=== PATIENT | female | born 1990 | race Caucasian/White ===

== ENCOUNTER 2022-09-03 11:50 | Inpatient (IN) ==
[2022-09-05] MEDS ORDERED: PENICILLIN G POTASSIUM 6 MU in DEXTROSE 5% 250 ML IV STA (09:59)
[2022-09-05] MEDS ORDERED: OXYTOCIN 30 UNITS/500 ML BAG IV PRN (09:59)
[2022-09-05] MEDS ORDERED: LIDOCAINE 1% LOCAL 20 ML VIAL INFIL PRN (09:59)
[2022-09-05] MEDS ORDERED: DINOPROSTONE 10 MG INSERT PV ONE (10:05)
--- NOTE | 2022-09-05 10:38 | History & Physical Report ---
Date of Service September 05, 2022 Assessment & Plan (1) Post-dates : Plan: Cervical ripening with Cervidil planned (2) Gestational diabetes: Admission and Anticipated Discharge Date Admission Date: September 05, 2022 History of Present Illness Chief Complaint: induction of labor for post dates Primary Care Provider: Mehnaz Capone, 32 F P0000 at 40.3 weeks here fir IOL for post-dates. Her GBS is negative. Covid is negative. GDM on diet control only. Allergies Allergy/AdvReac Type Severity Reaction Status Date / Time Penicillins AdvReac Rash Verified 09/05/22 10:13 Home Medications Medication Instructions Recorded Confirmed Type iron,carbonyl 65 mg-vitamin C 125 1 tab PO DAILY 09/05/22 09/05/22 History mg tablet,delayed release (Vitron-C) [id number] 1 mg 1 tab PO DAILY 09/05/22 09/05/22 History tablet Patient History Medical History Gestational diabetes mellitus diet controlled Infertility used clomid to get PCOS (polycystic ovarian syndrome) no meds Surgical History No history of previous surgery Social History Smoking Status: Never smoker Hx Alcohol Use: No Hx Substance Use: No Preferred Language: Croatian Cardiac Monitor Required: No Beliefs That Will Affect Care: None marital status: marital status details: Mohan Alexander Current Living Situation: Spouse 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 PCOS Review of Systems All systems reviewed & are unremarkable except as noted in HPI & below Physical Exam Constitutional: WD/WN, vitals as above Eyes: PERRL, conjunctivae normal, anicteric sclerae Respiratory: normal respiratory effort, lungs clear to auscultation Cardiovascular: RRR, no murmur, no edema Skin: no rashes, warm and dry Neurologic: patellar DTR's 2+ bilat, sensation intact Psychiatric: A+Ox3, euthymic affect Results & Data ([place]) Vital Signs (Past 12 Hours) Vital Signs Temp Pulse Resp BP 09/05/22 08:04 36.3 C L 18 09/05/22 08:02 87 122/72 Laboratory Results Laboratory Results - last 48 hr 09/05/22 09:00 SARS-CoV-2, RNA, NAAT NEGATIVE Monitoring External Monitor Cat 1
--- NOTE | 2022-09-05 10:41 | Labor Progress Brief Note ---
Date of Service September 05, 2022 Assessment & Plan Admission and Anticipated Discharge Date Admission Date: September 05, 2022 Physical Exam Genitourinary: no vaginal lesions, no adnexal mass OB Exam Abdomen: + fundal height, + vertex and + estimated weight (8 lbs.) Manual OB Exam: + cervical dilation, + cervical effacement 50% and + station high OB Exam Monitor Tracing: + external FHT monitor used, + external uterine monitor used, + category I and + normal FHT variability Cervix closed/thick/posterior Cervidil 10 mg placed vaginally Results & Data ([facility]) Vital Signs (Past 12 Hours) Vital Signs Temp Pulse Resp BP 09/05/22 08:04 36.3 C L 18 09/05/22 08:02 87 122/72
[2022-09-05 10:42] LABS: Hemoglobin 11.3 g/dl (12.0-16.0); Mean Corpuscular Hemoglobin 29.8 pg (25.0-34.0); Mean Corpuscular Hgb Conc 33.2 g/dL (32.0-36.0); Mean Corpuscular Volume 89.7 fL (80.0-100.0); Mean Platelet Volume 11.9 fL (9.4-12.3); Platelet Count 189 K/uL (130-400); RDW Coefficient of Variation 14.3 % (11.5-14.5); RDW Standard Deviation 46.5 fL (36.4-46.3); Red Blood Count 3.79 M/uL (3.93-5.22); White Blood Count 13.08 K/ul (4.8-10.8)
[2022-09-05] MEDS ORDERED: miSOPROStoL 50 MCG TAB PO STA (23:24)
[2022-09-05] MEDS ORDERED: ePHEDrine sulfate 50 MG/ML AMP ONE (23:57)
[2022-09-05] MEDS ORDERED: fentaNYL 2MCG/ML ROPIVACAINE 1.25MG/ML 100 ML BAG EPI ONE (23:58)
[2022-09-05] MEDS ORDERED: SODIUM CHLORIDE 0.9% INJ 10 ML VIAL ONE (23:58)
[2022-09-05] MEDS ORDERED: BUPIVACAINE 0.25% 30 ML VIAL ONE (23:58)
[2022-09-05] MEDS ORDERED: LIDOCAINE 2%/EPINEPHRINE 1:200,000 20 ML SDV ONE (23:58)
[2022-09-05] MEDS ORDERED: fentaNYL citrate 100 MCG/2 ML VIAL ONE (23:58)
[2022-09-06] MEDS ORDERED: NALBUPHINE HCL INJ 10 MG/ML AMP IV PRN (00:42)
[2022-09-06] MEDS ORDERED: ONDANSETRON INJ 2 MG/ML 2 ML VIAL IV PRN (00:42)
[2022-09-06] MEDS ORDERED: NALOXONE HCL 0.4 MG/1 ML VIAL/CARP IV PRN (00:42)
[2022-09-06] MEDS ORDERED: ePHEDrine sulfate 50 MG/ML AMP IV PRN (00:42)
[2022-09-06] MEDS ORDERED: diphenhydrAMINE 50 MG/ML VIAL IV PRN (00:42)
[2022-09-06] MEDS ORDERED: fentaNYL 2MCG/ML ROPIVACAINE 1.25MG/ML 100 ML BAG EPI PRN (00:42)
[2022-09-06] MEDS ORDERED: NALOXONE HCL 1 MG in SODIUM CHLORIDE 0.9% 1000ML 1,000 ML IV PRN (00:42)
--- NOTE | 2022-09-06 00:45 | Anesthesiology Consultation ---
Date of Service September 06, 2022 Assessment & Plan Chart Review Chart Review: Patient NOT seen in Pre Admission Testing and Acceptable Risk for Labor Epidural Consults Requested none ASA ASA2 Proposed Anesthesia Anesthesia Type: Labor Epidural and CSE Risk / Benefits Reviewed With: PT / POA / Parent / Guardian, Accepts Plan and Informed Consent Obtained History Height/Weight Height: 5 ft 5 in Weight: 92.079 kg Allergies Allergy/AdvReac Type Severity Reaction Status Date / Time Penicillins AdvReac Rash Verified 09/05/22 10:13 Medications Home Medications Medication Instructions Recorded Confirmed Last Taken iron,carbonyl 65 mg-vitamin C 125 1 tab PO DAILY 09/05/22 09/05/22 09/04/22 09:00 mg tablet,delayed release (Vitron-C) [id number]-vmr-[id number]-FA 1 mg 1 tab PO DAILY 09/05/22 09/05/22 09/03/22 09:00 tablet Active Medications Generic Name Dose Route Start Last Admin Trade Name Freq PRN Reason Stop Dose Admin Lactated Ringer's 1,000 mls @ 125 mls/hr 09/05/22 09:59 09/06/22 00:00 Lr IV 09/07/22 09:58 999 mls/hr .Q8H PRN Administration L&D Protocol Protocol NPO Date Last Intake of Fluids: 09/05/22 Time Last Intake of Fluids: 23:00 Date Last Intake of Solids: 09/05/22 Time Last Intake of Solids: 17:00 Past Medical History Medical History Gestational diabetes mellitus diet controlled Infertility used clomid to get PCOS (polycystic ovarian syndrome) no meds Exercise / Class Metabolic Activity II 4-5 Yardwork/Stairs/Walk up hill Past Surgical History Surgical History No history of previous surgery Past Anesthesia History No Hx of Anesthesia Complications and No Family Hx of Anesthesia Complications History of PONV No Hx of PONV and No Hx of Motion Sickness Social History Smoking Status: Never smoker Hx Alcohol Use: No Hx Substance Use: No substance use type: does not use Review of Systems no chest pain or sob Physical Exam Vital Signs Last Vital Signs Temp 36.9 C 09/05/22 23:51 Pulse 73 09/06/22 00:44 Resp 18 09/05/22 15:13 BP 122/65 09/06/22 00:44 SpO2 99 ENMT Mouth: no TMJ abnormality Thyromental Distance: > or= 3.5 Finger Breadths Mallampati Class: II Neck normal visual inspection Respiratory normal respiratory effort Auscultation: lungs clear to auscultation bilaterally Cardiovascular Rate/Rhythm: regular rate and regular rhythm Musculoskeletal Spine: normal cervical ROM Neurologic moves all extremities Psychiatric Orientation: alert and oriented x 3 Testing Laboratory Results 09/05/22 10:12
[2022-09-06] MEDS: PENICILLIN G POTASSIUM 3 MU in DEXTROSE 5% 100 ML IV PRN ×4 (03:45→11:18)
[2022-09-06] MEDS: LACTATED RINGER'S 1,000 ML IV PRN ×3 (04:50→09:40)
[2022-09-06] MEDS ORDERED: NURSING L&D Epidural Breakthrough Pain Update ONE (06:55)
--- NOTE | 2022-09-06 09:15 | Labor Progress Brief Note ---
Date of Service September 06, 2022 Assessment & Plan (1) Post-dates : Plan: Pt doing well VE 10/100/-1 Anticipate passive descent Admission and Anticipated Discharge Date Admission Date: September 05, 2022 Results & Data ([facility]) Vital Signs (Past 12 Hours) Vital Signs Temp Pulse Resp BP Pulse Ox 09/06/22 07:00 37 C 20 09/06/22 09:10 74 100 09/06/22 09:05 76 100 09/06/22 09:00 78 09/06/22 09:00 78 118/66 100 09/06/22 08:55 80 100 09/06/22 08:50 74 100 09/06/22 08:46 70 97/52 L 09/06/22 08:45 79 100 09/06/22 08:40 73 100 09/06/22 08:35 81 100 09/06/22 08:33 81 93 09/06/22 08:30 79 20 105/55 L 100 09/06/22 08:25 75 100 09/06/22 08:20 71 100 09/06/22 08:16 73 106/59 L 09/06/22 08:15 76 100 09/06/22 08:10 73 100 09/06/22 08:05 84 100 09/06/22 08:01 74 109/63 09/06/22 08:00 78 100 09/06/22 07:55 72 100 09/06/22 07:50 77 100 09/06/22 07:45 74 09/06/22 07:45 70 116/64 100 09/06/22 07:40 72 100 09/06/22 07:35 71 100 09/06/22 07:30 71 20 118/76 100 09/06/22 07:25 82 100 09/06/22 07:20 73 100 09/06/22 07:16 71 115/68 09/06/22 07:15 72 100 09/06/22 07:10 83 99 09/06/22 07:05 79 100 09/06/22 07:01 71 115/66 09/06/22 07:00 72 100 09/06/22 06:55 83 98 09/06/22 06:50 73 98 09/06/22 06:45 73 106/61 98 09/06/22 06:40 71 98 09/06/22 06:35 69 97 09/06/22 06:30 20 09/06/22 06:30 64 20 106/61 98 09/06/22 06:25 66 98 09/06/22 06:20 65 98 09/06/22 06:16 64 106/57 L 09/06/22 06:15 65 98 09/06/22 06:10 66 97 09/06/22 06:00 18 09/06/22 06:00 37.7 C H 18 09/06/22 06:05 66 97 09/06/22 06:00 36.7 C 65 18 105/64 98 09/06/22 05:55 67 99 09/06/22 05:50 67 98 09/06/22 05:46 66 104/63 09/06/22 05:45 65 98 09/06/22 05:40 68 98 09/06/22 05:35 67 99 09/06/22 05:31 77 108/62 09/06/22 05:30 67 18 99 09/06/22 05:25 67 97 09/06/22 05:20 67 96 09/06/22 05:15 62 94/53 L 97 09/06/22 05:10 68 97 09/06/22 05:05 68 97 09/06/22 05:00 62 20 94/51 L 98 09/06/22 04:55 66 97 09/06/22 04:50 67 97 09/06/22 04:45 68 96/55 L 98 09/06/22 04:40 67 98 09/06/22 04:35 67 97 09/06/22 04:30 65 18 94/53 L 98 09/06/22 04:25 68 97 09/06/22 04:20 68 98 09/06/22 04:15 68 96/51 L 98 09/06/22 04:10 71 98 09/06/22 04:05 67 99 09/06/22 04:00 37.5 C 64 18 106/60 98 09/06/22 03:55 69 100 09/06/22 03:50 75 100 09/06/22 03:46 73 124/76 09/06/22 03:45 70 100 09/06/22 03:40 65 99 09/06/22 03:35 68 99 09/06/22 03:30 66 18 112/73 100 09/06/22 03:25 68 100 09/06/22 03:20 66 99 09/06/22 03:16 64 109/68 09/06/22 03:15 67 100 09/06/22 03:10 67 99 09/06/22 03:05 67 99 09/06/22 03:00 65 110/62 98 09/06/22 02:55 67 98 09/06/22 02:50 67 99 09/06/22 02:45 68 114/64 99 09/06/22 02:40 78 99 09/06/22 02:35 71 98 09/06/22 02:31 71 114/71 09/06/22 02:30 69 98 09/06/22 02:29 18 09/06/22 02:29 18 09/06/22 02:25 76 100 09/06/22 02:20 61 98 09/06/22 02:15 74 138/63 100 09/06/22 02:10 67 97 09/06/22 02:05 70 97 09/06/22 02:00 65 110/66 98 09/06/22 01:59 20 09/06/22 01:59 20 09/06/22 01:55 68 97 09/06/22 01:50 69 96 09/06/22 01:46 64 111/64 09/06/22 01:45 66 97 09/06/22 01:40 65 98 09/06/22 01:35 65 98 09/06/22 01:30 65 18 113/67 99 09/06/22 01:26 63 114/67 09/06/22 01:25 64 97 09/06/22 01:21 63 116/70 09/06/22 01:20 77 99 09/06/22 01:16 67 115/65 09/06/22 01:13 36.9 C 09/06/22 01:15 69 20 98 09/06/22 00:47 18 09/06/22 00:47 18 09/06/22 01:12 73 115/67 09/06/22 01:10 72 18 98 09/06/22 01:05 75 18 102/59 L 99 09/06/22 01:03 88 103/64 09/06/22 01:01 69 103/64 09/06/22 01:00 70 18 98 09/06/22 00:59 72 106/65 09/06/22 00:57 69 117/65 09/06/22 00:55 68 18 99 09/06/22 00:50 78 100 09/06/22 00:49 76 92 09/06/22 00:45 75 98 09/06/22 00:44 73 122/65 09/05/22 23:51 36.9 C
[2022-09-06] MEDS ORDERED: OXYTOCIN 30 UNITS/500 ML BAG IV PRN ×2 (09:23→14:18)
[2022-09-06] MEDS ORDERED: SODIUM CHLORIDE 0.9% INJ 10 ML VIAL ONE (09:47)
[2022-09-06] MEDS ORDERED: fentaNYL citrate 100 MCG/2 ML VIAL ONE (09:47)
[2022-09-06] MEDS ORDERED: BUPIVACAINE 0.25% 30 ML VIAL ONE (09:47)
--- NOTE | 2022-09-06 09:57 | Communication Note ---
Date of Service: September 06, 2022 Patient re-assessed d/t increased pain/pressure with and without contractions, last vaginal exam revealed 10 cm dilation but infant remains high. Bolus 3 cc 0.125% bupiv and 100 mcg fentanyl as patient labors down.
[2022-09-06] MEDS ORDERED: METHYLERGONOVINE MALEATE 0.2 MG/ML AMP ONE (13:46)
[2022-09-06] MEDS ORDERED: miSOPROStoL 200 MCG TAB ONE (13:46)
[2022-09-06] MEDS ORDERED: BENZOCAINE 20% AER SPR 82.5 GM CAN EXT PRN (14:18)
[2022-09-06] MEDS ORDERED: METHYLERGONOVINE MALEATE 0.2 MG/ML AMP IM ONE (14:18)
[2022-09-06] MEDS ORDERED: HYDROCORTISONE ACETATE 25 MG SUPP PR PRN (14:18)
[2022-09-06] MEDS ORDERED: miSOPROStoL 200 MCG TAB PR ONE (14:18)
[2022-09-06] MEDS ORDERED: DIPHTHERIA/TETANUS/PERTUSSIS 0.5 ML SYR/VIAL IM ONE (14:18)
[2022-09-06] MEDS ORDERED: bisacodyL 10 MG SUPP PR PRN (14:18)
[2022-09-06] MEDS ORDERED: ACETAMINOPHEN 325 MG TAB PO PRN (14:18)
[2022-09-06 14:41] LABS: Base Excess Cord Venous Blood -6.6 mEq/L (-7.7-1.9); Cord Venous Blood HCO3 19 mmol/L (18.4-26.8); Cord Venous Blood PCO2 38 mmHg (30.4-57.2); Cord Venous Blood PO2 29 mmHg (14.1-43.3); Cord Venous Blood pH 7.31 (7.20-7.44); O2 Saturation Cord Venous Bld < 60.0 % (<68)
[2022-09-06 14:43] LABS: Base Excess Cord Arterial Bld -7.9 mEq/L (-9-1.8); CO2 Cord Arterial Blood 56 mmHg (39.1-73.5); HCO3 Cord Arterial Blood 21 mmol/L (19.7-28.5); Oxygen Sat Cord Arterial Blood < 60.0 % (<60); PO2 Cord Arterial Blood 24 mmHg (4.1-31.7); pH Cord Arterial Blood 7.18 (7.1-7.38)
--- NOTE | 2022-09-06 14:44 | Anesthesia Procedure Note ---
Date of Service September 06, 2022 Anesthesia Post Epidural Note Vital Signs Vital Signs: Temp Pulse Resp BP Pulse Ox 99.0 F 77 20 123/67 98 09/06/22 14:10 09/06/22 14:40 09/06/22 14:25 09/06/22 14:40 09/06/22 14:10 Pain Intensity Left Hip: Pain Intensity: 6 Notes Mental Status: alert / awake / arousable and participated in evaluation Nausea / Vomiting: adequately controlled Pain: adequately controlled Airway Patency, RR, SpO2: stable & adequate BP & HR: stable & adequate Hydration State: stable & adequate Neuraxial Anesthesia: was administered and sensory block is resolving Anesthetic Complications: no major complications apparent and Pt Satisfied with anesthetic care Epidural: Removed without complications and With tip intact
--- NOTE | 2022-09-06 15:33 | Delivery Summary ---
DELIVERY NOTE: DATE OF DELIVERY: 09/06/2022. The patient delivered a live male in left occiput anterior presentation. There was nuchal cor d, which was easily reduced. Infant was delivered and placed on mother's abdomen. Delayed cord clam p was performed. Infant's weight and Apgars are in the pediatric record. Inspection of the perineum shows a second-degree midline laceration, which was repaired with Vicryl in layers. Rectal exam pos t-repair showed good sphincter tone. There was no sutures palpated in the rectum. Estimated blood loss was 450 mL. The patient and mother are doing well in recovery. All instruments were removed from the vagina and accounted for x2 including sponges, needles, and retractors. Job ID: [id number]
[2022-09-06] MEDS: IBUPROFEN 600 MG TAB PO PRN ×2 (17:44→21:17)
[2022-09-06] MEDS: DOCUSATE SODIUM 100 MG CAP PO SCH (21:17)
[2022-09-07] MEDS: IBUPROFEN 600 MG TAB PO PRN ×4 (03:55→19:52)
[2022-09-07 07:44] LABS: Hematocrit (blood only) 27.7 % (34.1-44.9); Hemoglobin 9.4 g/dl (12.0-16.0); Mean Corpuscular Hemoglobin 30.4 pg (25.0-34.0); Mean Corpuscular Hgb Conc 33.9 g/dL (32.0-36.0); Mean Corpuscular Volume 89.6 fL (80.0-100.0); Mean Platelet Volume 11.8 fL (9.4-12.3); Platelet Count 155 K/uL (130-400); RDW Coefficient of Variation 14.4 % (11.5-14.5); RDW Standard Deviation 46.4 fL (36.4-46.3); Red Blood Count 3.09 M/uL (3.93-5.22); White Blood Count 19.47 K/ul (4.8-10.8)
[2022-09-07] MEDS: PRENATAL VITAMIN 1 TAB PO SCH (08:46)
[2022-09-07] MEDS: DOCUSATE SODIUM 100 MG CAP PO SCH ×2 (08:47→19:51)
[2022-09-07] MEDS: FERROUS SULFATE 325 MG TAB PO SCH (08:47)
--- NOTE | 2022-09-07 09:09 | Obstetrical Progress Note ---
Date of Service September 07, 2022 Assessment & Plan Admission and Anticipated Discharge Date Admission Date: September 05, 2022 Subjective Patient is seen and examined. She feels well, no complaints. Ambulating without dizziness Voiding without difficulty Tolerating regular diet with out N&V Bleeding is minimal No fever/ chills/ CP/ SOB/ N&V/ Leg pain Breast feeding without problems Vital Signs Temp Pulse Resp BP Pulse Ox O2 Del Method 09/07/22 03:54 36.7 C 64 18 101/69 97 Room Air 09/07/22 00:45 Room Air 09/07/22 00:45 36.5 C 68 18 103/64 98 Room Air Lab Results 09/05/22 09/05/22 09/05/22 Range/Units 09:00 10:12 10:44 WBC 13.08 H (4.8-10.8) K/ul RBC 3.79 L (3.93-5.22) M/uL Hgb 11.3 L (12.0-16.0) g/dl Hct 34.0 L (34.1-44.9) % MCV 89.7 (80.0-100.0) fL MCH 29.8 (25.0-34.0) pg MCHC 33.2 (32.0-36.0) g/dL RDW Std Deviation 46.5 H (36.4-46.3) fL RDW Coeff of Claudio 14.3 (11.5-14.5) % Plt Count 189 (130-400) K/uL MPV 11.9 (9.4-12.3) fL Cord ABG pH (7.1-7.38) Cord ABG pCO2 (39.1-73.5) mmHg Cord ABG pO2 (4.1-31.7) mmHg Cord ABG HCO3 (19.7-28.5) mmol/L Cord ABG Base Excess (-9-1.8) mEq/L Cord ABG O2 Sat (<60) % Cord VBG pH (7.20-7.44) Cord VBG pCO2 (30.4-57.2) mmHg Cord VBG pO2 (14.1-43.3) mmHg Cord VBG HCO3 (18.4-26.8) mmol/L Cord VBG Base Excess (-7.7-1.9) mEq/L Cord VBG O2 Sat (<68) % Blood Gas Comments POC Glucose 78 (70-99) mg/dl SARS-CoV-2, RNA, NAAT NEGATIVE (NEGATIVE) 09/06/22 09/06/22 09/07/22 Range/Units 13:25 13:25 07:29 WBC 19.47 H (4.8-10.8) K/ul RBC 3.09 L (3.93-5.22) M/uL Hgb 9.4 L (12.0-16.0) g/dl Hct 27.7 L (34.1-44.9) % MCV 89.6 (80.0-100.0) fL MCH 30.4 (25.0-34.0) pg MCHC 33.9 (32.0-36.0) g/dL RDW Std Deviation 46.4 H (36.4-46.3) fL RDW Coeff of Claudio 14.4 (11.5-14.5) % Plt Count 155 (130-400) K/uL MPV 11.8 (9.4-12.3) fL Cord ABG pH 7.18 (7.1-7.38) Cord ABG pCO2 56 (39.1-73.5) mmHg Cord ABG pO2 24 (4.1-31.7) mmHg Cord ABG HCO3 21 (19.7-28.5) mmol/L Cord ABG Base Excess -7.9 (-9-1.8) mEq/L Cord ABG O2 Sat < 60.0 (<60) % Cord VBG pH 7.31 (7.20-7.44) Cord VBG pCO2 38 (30.4-57.2) mmHg Cord VBG pO2 29 (14.1-43.3) mmHg Cord VBG HCO3 19 (18.4-26.8) mmol/L Cord VBG Base Excess -6.6 (-7.7-1.9) mEq/L Cord VBG O2 Sat < 60.0 (<68) % Blood Gas Comments YUEN YUEN POC Glucose (70-99) mg/dl SARS-CoV-2, RNA, NAAT (NEGATIVE) PE: General: Alert, orientedx3, NAD Abd: soft, NT, fundus firm, below Umbilicus Perineum intact, Lochia rubra minimal Ext; NT, no edema AP: 32 yo s/p , ppd# 1 VSS Afebrile doing well Continue routine care All questions were answered D/C home tomorrow Results & Data ([facility]) Vital Signs (Past 12 Hours) Vital Signs Temp Pulse Resp BP Pulse Ox O2 Del Method 09/07/22 03:54 36.7 C 64 18 101/69 97 Room Air 09/07/22 00:45 Room Air 09/07/22 00:45 36.5 C 68 18 103/64 98 Room Air
[2022-09-07] MEDS ORDERED: bisacodyL 5 MG TABEC PO SCH (20:00)
[2022-09-08 06:53] LABS: Basophils # (auto) 0.08 K/uL (0-0.2); Basophils % (auto) 0.6 %; Eosinophils # (auto) 0.21 K/uL (0-0.50); Eosinophils % (auto) 1.4 %; Hematocrit (blood only) 29.2 % (34.1-44.9); Hemoglobin 9.8 g/dl (12.0-16.0); Immature Granulocytes # (auto) 0.21 K/uL (0.00-0.02); Immature Granulocytes % (auto) 1.4 %; Lymphocytes % (auto) 32.4 %; Mean Corpuscular Hemoglobin 30.4 pg (25.0-34.0); Mean Corpuscular Hgb Conc 33.6 g/dL (32.0-36.0); Mean Corpuscular Volume 90.7 fL (80.0-100.0); Mean Platelet Volume 11.8 fL (9.4-12.3); Monocytes # (auto) 1.16 K/uL (0.24-0.82); Neutrophils # (auto) 8.15 K/uL (1.4-6.5); Neutrophils % (auto) 56.2 %; Platelet Count 196 K/uL (130-400); RDW Coefficient of Variation 14.4 % (11.5-14.5); RDW Standard Deviation 47.8 fL (36.4-46.3); Red Blood Count 3.22 M/uL (3.93-5.22); White Blood Count 14.51 K/ul (4.8-10.8)
[2022-09-08] MEDS: FERROUS SULFATE 325 MG TAB PO SCH (09:05)
[2022-09-08] MEDS: DOCUSATE SODIUM 100 MG CAP PO SCH (09:06)
[2022-09-08] MEDS: PRENATAL VITAMIN 1 TAB PO SCH (09:06)
[2022-09-08] MEDS ORDERED: MEASLES, MUMPS & RUBELLA VIRUS VIAL SQ ONE (10:44)
--- NOTE | 2022-09-08 11:47 | Obstetrical Progress Note ---
Date of Service September 08, 2022 Subjective Ambulation: ambulating normally Voiding: no voiding problems Passing Gas:: Yes Diet Tolerance:: regular diet Lochia:: Small Feeding Type:: breast feeding Current Pain Level(1-10): 0 Physical Exam Constitutional WD/WN, vitals as above Gastrointestinal (Abdomen) Inspection/Auscultation: abdomen normal to inspection Musculoskeletal Extremities: extremities normal to inspection Skin no rashes, warm and dry Neurologic patellar DTR's 2+ bilat, sensation intact Psychiatric A+Ox3, euthymic affect Results & Data ([facility]) Vital Signs (Past 12 Hours) Vital Signs Temp Pulse Resp BP Pulse Ox O2 Del Method 09/08/22 08:45 36.7 C 67 18 115/73 99 Room Air Laboratory Results Laboratory Results - last 72 hr 09/06/22 09/06/22 09/07/22 13:25 13:25 07:29 WBC 19.47 H RBC 3.09 L Hgb 9.4 L Hct 27.7 L MCV 89.6 MCH 30.4 MCHC 33.9 RDW Std Deviation 46.4 H RDW Coeff of Clauido 14.4 Plt Count 155 MPV 11.8 Immature Gran % (Auto) Neut % (Auto) Lymph % (Auto) [place] % (Auto) Eos % (Auto) Baso % (Auto) Neut # (Auto) Lymph # (Auto) [place] # (Auto) Eos # (Auto) Baso # (Auto) Immature Gran # (Auto) Cord ABG pH 7.18 Cord ABG pCO2 56 Cord ABG pO2 24 Cord ABG HCO3 21 Cord ABG Base Excess -7.9 Cord ABG O2 Sat < 60.0 Cord VBG pH 7.31 Cord VBG pCO2 38 Cord VBG pO2 29 Cord VBG HCO3 19 Cord VBG Base Excess -6.6 Cord VBG O2 Sat < 60.0 Blood Gas Comments YUEN YUEN 09/08/22 06:22 WBC 14.51 H RBC 3.22 L Hgb 9.8 L Hct 29.2 L MCV 90.7 MCH 30.4 MCHC 33.6 RDW Std Deviation 47.8 H RDW Coeff of Claudio 14.4 Plt Count 196 MPV 11.8 Immature Gran % (Auto) 1.4 Neut % (Auto) 56.2 Lymph % (Auto) 32.4 [place] % (Auto) 8.0 Eos % (Auto) 1.4 Baso % (Auto) 0.6 Neut # (Auto) 8.15 H Lymph # (Auto) 4.70 H [place] # (Auto) 1.16 H Eos # (Auto) 0.21 Baso # (Auto) 0.08 Immature Gran # (Auto) 0.21 H Cord ABG pH Cord ABG pCO2 Cord ABG pO2 Cord ABG HCO3 Cord ABG Base Excess Cord ABG O2 Sat Cord VBG pH Cord VBG pCO2 Cord VBG pO2 Cord VBG HCO3 Cord VBG Base Excess Cord VBG O2 Sat Blood Gas Comments
== END 2022-09-08 14:25 | disposition home or self-care (01) | DRG 807 ==
LOC: 4S1 09-05 07:41 → 4E2 09-06 18:10

== ENCOUNTER 2022-10-13 00:02 | Observation (INO) ==
[2022-10-13 02:01] LABS: Appearance Urine Clear (Clear); Bacteria Urine Automated Negative (Negative); Blood Urine Negative (Negative); Cast Urine Automated 0 /lpf (0-5); Color Urine Dark Yellow; Glucose Urine UA Negative (Negative); Ketones Urine Trace (Negative); Leukocyte Esterase Urine Trace (Negative); Nitrite Urine Negative (Negative); Protein Urine Trace (Negative); RBC Urine Automated 0-4 /hpf (0-4); Specific Gravity Urine 1.037 (1.000-1.030); Urobilinogen Urine Negative (Negative)
[2022-10-13 02:04] LABS: Basophils # (auto) 0.04 K/uL (0-0.2); Basophils % (auto) 0.3 %; Eosinophils # (auto) 0.08 K/uL (0-0.50); Eosinophils % (auto) 0.7 %; Hematocrit (blood only) 37.2 % (37.0-47.0); Hemoglobin 12.4 g/dl (12.0-16.0); Immature Granulocytes # (auto) 0.05 K/uL (0.01-0.20); Immature Granulocytes % (auto) 0.4 %; Lymphocytes # (auto) 2.31 K/uL (1.2-3.4); Lymphocytes % (auto) 19.4 %; Mean Corpuscular Hemoglobin 29.5 pg (25.0-34.0); Mean Corpuscular Hgb Conc 33.3 g/dL (32.0-36.0); Mean Corpuscular Volume 88.6 fL (80.0-100.0); Mean Platelet Volume 10.4 fL (9.4-12.4); Monocytes # (auto) 0.64 K/uL (0.11-0.59); Monocytes % (auto) 5.4 %; Neutrophils # (auto) 8.79 K/uL (1.40-6.50); Neutrophils % (auto) 73.8 %; Platelet Count 257 K/uL (130-400); RDW Coefficient of Variation 12.8 % (11.5-14.5); RDW Standard Deviation 41.7 fL (36.4-46.3); White Blood Count 11.91 K/ul (4.8-10.8)
[2022-10-13 02:08] LABS: Bilirubin Urine 1+ (Negative)
[2022-10-13 02:18] LABS: Calcium Oxalate Crystals Urine Present (None Prsent)
[2022-10-13 02:20] LABS: Albumin Globulin Ratio 1.5 (0.9-2); Albumin Level 4.3 gm/dl (3.4-5.0); BUN Creatinine Ratio 19.4 (10-20); Bilirubin,Total 1.6 mg/dl (0.2-1.0); Calcium 9.3 mg/dl (8.5-10.1); Creatinine Clr Calc Pharmacy 81.8 ml/min; Est GFR (African American) 83.9 ml/min; Est GFR (Non-African American) 72.4 ml/min; Globulin 2.8 gm/dl (2.5-4.0); Potassium 3.9 mmol/L (3.5-5.1); Total Protein 7.1 gm/dl (6.0-8.3)
[2022-10-13] MEDS ORDERED: MoRPHine SULFATE 4 MG/ML 1 ML CARP\\VIAL IV PRN (03:27)
[2022-10-13] MEDS ORDERED: ONDANSETRON INJ 2 MG/ML 2 ML VIAL IV STA (03:27)
[2022-10-13] MEDS ORDERED: SODIUM CHLORIDE 0.9% 1000ML 1,000 ML IV SCH (03:45)
--- NOTE | 2022-10-13 05:30 | Emergency Department Note ---
History of Present Illness General Chief complaint: Abdominal Pain Stated complaint: ABDOMINAL PAIN Time Seen by Provider: 10/13/22 03:22 History of Present Illness Maximum Pain Intensity: 7 This is a 32-year-old female presenting to the emergency department for evaluation of right upper quadrant abdominal pain for the past several hours. The patient states that she is scheduled for elective cholecystectomy later this month with the [facility] surgical team. She would have had this removed earlier, however gave to a healthy baby boy about 1 month ago. The patient states that shortly after eating dinner tonight she had return of her pain that she rates a 7/10. She evidently has gallstones and feels similar to previous exacerbations. She has not had fever or chills. No lower abdominal discomfort. She is breast-feeding and supplementing with formula. She did take ibuprofen and Tylenol without significant improvement of symptoms. Home Medications Medication Instructions Recorded Confirmed Type iron,carbonyl 65 mg-vitamin C 125 1 tab PO DAILY 09/05/22 09/05/22 History mg tablet,delayed release (Vitron-C) [id number] 1 mg 1 tab PO DAILY 09/05/22 09/05/22 History tablet ibuprofen 600 mg tablet 600 mg PO Q6H PRN fever or pain 09/08/22 Rx #30 tabs Past Med/Surg History Medical History Gestational diabetes mellitus diet controlled Infertility used clomid to get PCOS (polycystic ovarian syndrome) no meds Surgical History No history of previous surgery Social History Smoking Status: Never smoker Hx Alcohol Use: No Hx Substance Use: No Preferred Language: [place] Post Acute Care Nurse Required: No Beliefs That Will Affect Care: None marital status: marital status details: Mohan Alexander Current Living Situation: Spouse 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 [employer] Feels Safe at Home: Yes Assistive Devices: None Review of Systems A total of 10 systems reviewed and were otherwise negative Physical Exam Vital Signs Vital Signs - 24 hr 10/13/22 00:06 10/13/22 04:02 10/13/22 07:40 Temperature 36.9 C Temperature Source Temporal Artery Scan Pulse Rate 57 L Pulse Rate [Radial] 61 Respiratory Rate 16 20 Respiratory Effort / Characteristics Non-Labored Non-Labored Spontaneous Respiratory Depth Normal Normal Respiratory Pattern Regular Blood Pressure 143/87 H Blood Pressure [Right Arm] 101/77 Blood Pressure Mean 105 Blood Pressure Mean [Right Arm] 85 Pulse Oximetry 100 100 Oxygen Delivery Method Room Air Room Air Room Air Sepsis Recent Fever Within 48 Hours No Sepsis New/Unexplained Change in Mental Status N/A Sepsis Action Taken by Nursing No Action Required VITALS: Vitals are noted on the nurse's note and reviewed by myself. Vital signs stable. GENERAL: Well-developed, well-nourished, white female, who is in no acute distress and resting comfortably. Patient is cooperative with the examination. HEAD: Normocephalic atraumatic. HEART: Regular rate and rhythm without murmurs gallops or rubs. LUNGS: Clear to auscultation bilaterally without wheezes, rales or rhonchi. No retractions or accessory muscle use. ABDOMEN: Positive normal bowel sounds x 4. Soft, nontender, without masses or organomegaly. No guarding or rebound tenderness. MUSCULOSKELETAL: No muscle atrophy, erythema, or edema noted. Full range of motion in all extremities. Course Administered Medications Morphine Sulfate (Morphine Sulfate 4 Mg/Ml 1 Ml Carp\Vial) 4 mg IV Q30M PRN PRN Reason: Pain Stop: 10/27/22 03:26 Last Admin: 10/13/22 04:04 Dose: 4 mg Documented By: ABRAM Discontinued Medications Sodium Chloride (Nss 1000ml) 1,000 mls @ 999 mls/hr IV .Q1H1M SAMRA Stop: 10/13/22 04:45 Last Infusion: 10/13/22 07:41 Dose: 0 mls/hr Documented By: Admin: 10/13/22 04:04 Dose: 999 mls/hr Documented By: ABRAM Piperacillin Sod/Tazobactam Sod (Zosyn) 4.5 gm in 120 mls @ 240 mls/hr IV NOW ONE Stop: 10/13/22 07:44 Last Admin: 10/13/22 07:40 Dose: 240 mls/hr Documented By: DHARA Ondansetron HCl (Ondansetron Inj 2 Mg/Ml 2 Ml Vial) 4 mg IV NOW STA Stop: 10/13/22 03:28 Last Admin: 10/13/22 04:04 Dose: 4 mg Documented By: ABRAM Medical Decision Making Differential Diagnosis Differential diagnosis: Etiologies such as biliary colic, cholecystitis, hepatitis, pancreatitis, ca rdiac disease, pancreatitis, gastritis, peptic ulcer disease, appendicitis, cystitis, diverticulitis, mesenteric ischemia, inflammatory bowel disease, ileus, bowel obstruction, testicular/adnexal torsion, aortic pathology, shingles, as well as others were considered Laboratory Data 10/13/22 01:39 10/13/22 01:39 Lab Results 10/13/22 10/13/22 10/13/22 Range/Units 01:33 01:33 01:39 WBC 11.91 H (4.8-10.8) K/ul RBC 4.20 (4.20-5.40) M/uL Hgb 12.4 (12.0-16.0) g/dl Hct 37.2 (37.0-47.0) % MCV 88.6 (80.0-100.0) fL MCH 29.5 (25.0-34.0) pg MCHC 33.3 (32.0-36.0) g/dL RDW Std Deviation 41.7 (36.4-46.3) fL RDW Coeff of Claudio 12.8 (11.5-14.5) % Plt Count 257 (130-400) K/uL MPV 10.4 (9.4-12.4) fL Immature Gran % (Auto) 0.4 % Neut % (Auto) 73.8 % Lymph % (Auto) 19.4 % [place] % (Auto) 5.4 % Eos % (Auto) 0.7 % Baso % (Auto) 0.3 % Neut # (Auto) 8.79 H (1.40-6.50) K/uL Lymph # (Auto) 2.31 (1.2-3.4) K/uL [place] # (Auto) 0.64 H (0.11-0.59) K/uL Eos # (Auto) 0.08 (0-0.50) K/uL Baso # (Auto) 0.04 (0-0.2) K/uL Immature Gran # (Auto) 0.05 (0.01-0.20) K/uL Sodium (136-145) mmol/L Potassium (3.5-5.1) mmol/L Chloride (98-107) mmol/L Carbon Dioxide (21-32) mmol/L Anion Gap (3-11) BUN (6-23) mg/dl Creatinine (0.6-1.2) mg/dl Est Cr Clr Drug Dosing ml/min Est GFR ( Amer) ml/min Est GFR (Non-Af Amer) ml/min BUN/Creatinine Ratio (10-20) Glucose (70-99(Fasting)) mg/dl Calcium (8.5-10.1) mg/dl Total Bilirubin (0.2-1.0) mg/dl AST (13-39) U/L ALT (7-52) U/L Alkaline Phosphatase (34-104) U/L Total Protein (6.0-8.3) gm/dl Albumin (3.4-5.0) gm/dl Globulin (2.5-4.0) gm/dl Albumin/Globulin Ratio (0.9-2) Lipase (11-82) U/L Urine Color Dark Yellow Urine Appearance Clear (Clear) Urine pH 6.0 (4.5-7.5) Ur Specific [place] 1.037 H (1.000-1.030) Urine Protein Trace H (Negative) Urine Glucose (UA) Negative (Negative) Urine Ketones Trace H (Negative) Urine Blood Negative (Negative) Urine Nitrite Negative (Negative) Urine Bilirubin 1+ H (Negative) Urine Urobilinogen Negative (Negative) Ur Leukocyte Esterase Trace H (Negative) Urine WBC (Auto) 10-30 H (0-5) /hpf Urine RBC (Auto) 0-4 (0-4) /hpf U Hyaline Cast (Auto) 0 (0-5) /lpf U Epithel Cells (Auto) 10-20 H (0-5) /lpf Urine Bacteria (Auto) Negative (Negative) Urine Crystals Not Reportable Calcium Oxalate Crystal Present A (None Prsent) POC Ur Test NEG (NEG) 10/13/22 Range/Units 01:39 WBC (4.8-10.8) K/ul RBC (4.20-5.40) M/uL Hgb (12.0-16.0) g/dl Hct (37.0-47.0) % MCV (80.0-100.0) fL MCH (25.0-34.0) pg MCHC (32.0-36.0) g/dL RDW Std Deviation (36.4-46.3) fL RDW Coeff of Claudio (11.5-14.5) % Plt Count (130-400) K/uL MPV (9.4-12.4) fL Immature Gran % (Auto) % Neut % (Auto) % Lymph % (Auto) % [place] % (Auto) % Eos % (Auto) % Baso % (Auto) % Neut # (Auto) (1.40-6.50) K/uL Lymph # (Auto) (1.2-3.4) K/uL [place] # (Auto) (0.11-0.59) K/uL Eos # (Auto) (0-0.50) K/uL Baso # (Auto) (0-0.2) K/uL Immature Gran # (Auto) (0.01-0.20) K/uL Sodium 140 (136-145) mmol/L Potassium 3.9 (3.5-5.1) mmol/L Chloride 104 (98-107) mmol/L Carbon Dioxide 28 (21-32) mmol/L Anion Gap 8 (3-11) BUN 20 (6-23) mg/dl Creatinine 1.03 (0.6-1.2) mg/dl Est Cr Clr Drug Dosing 81.8 ml/min Est GFR ( Amer) 83.9 ml/min Est GFR (Non-Af Amer) 72.4 ml/min BUN/Creatinine Ratio 19.4 (10-20) Glucose 112 H (70-99(Fasting)) mg/dl Calcium 9.3 (8.5-10.1) mg/dl Total Bilirubin 1.6 H (0.2-1.0) mg/dl AST 173 H (13-39) U/L ALT 112 H (7-52) U/L Alkaline Phosphatase 196 H (34-104) U/L Total Protein 7.1 (6.0-8.3) gm/dl Albumin 4.3 (3.4-5.0) gm/dl Globulin 2.8 (2.5-4.0) gm/dl Albumin/Globulin Ratio 1.5 (0.9-2) Lipase 27 (11-82) U/L Urine Color Urine Appearance (Clear) Urine pH (4.5-7.5) Ur Specific [place] (1.000-1.030) Urine Protein (Negative) Urine Glucose (UA) (Negative) Urine Ketones (Negative) Urine Blood (Negative) Urine Nitrite (Negative) Urine Bilirubin (Negative) Urine Urobilinogen (Negative) Ur Leukocyte Esterase (Negative) Urine WBC (Auto) (0-5) /hpf Urine RBC (Auto) (0-4) /hpf U Hyaline Cast (Auto) (0-5) /lpf U Epithel Cells (Auto) (0-5) /lpf Urine Bacteria (Auto) (Negative) Urine Crystals Calcium Oxalate Crystal (None Prsent) POC Ur Test (NEG) Imaging Data Radiologist's Impression: Gallbladder Ultrasound 10/13/22 03:27 ULTRASOUND RIGHT UPPER QUADRANT ABDOMEN CLINICAL HISTORY: Right upper quadrant abdominal pain. Elevated hepatic transaminases. COMPARISON STUDY: Abdominal CT dated 09/12/2022 TECHNIQUE: Real-time, grayscale, and color flow sonography of the right upper quadrant of the abdomen was performed. Images are reviewed in the transverse and longitudinal planes. FINDINGS: Liver: The liver is normal in size and echotexture. There is mild intrahepatic biliary ductal dilatation. The main portal vein is patent. Gallbladder: The gallbladder is distended. No gallstones are identified. There is trace pericholecystic fluid. The gallbladder wall is mildly thickened and edematous measuring up to 4 mm. A sonographic Arana's sign could not be assessed as the patient received analgesia. The common bile duct is dilated, measuring up to 1.0 cm in diameter. Pancreas: Visualized portions of the pancreatic head and body are normal in appearance. The splenic vein is patent. Right kidney: Survey images of the right kidney demonstrate normal size and echotexture. There is no hydronephrosis. Ascites: None. IMPRESSION: The gallbladder is distended and the wall appears mildly thickened and edematous. No shadowing gallstones are identified. There is trace pericholecystic fluid. A sonographic Arana's sign could not be assessed. There is also intra and extrahepatic biliary ductal dilatation. Findings are suspicious for acute cholecystitis. Surgical consultation is advised. If warranted, a nuclear hepatobiliary scan could be considered for further a ssessment. ACT 112: Negative or not required by law. Electronically signed by: True Bacon M.D. 10/13/2022 6:52 AM MDM Narrative Physical exam and history were performed. Nursing notes, EMR, and Medication List were personally reviewed. No social concerns were identified as barriers to patients care. Patient appears to have upper abdominal pain bringing her to the ER. IV access was established and labs were obtained. Patient was seen during a period of very high ER volume and acuity with extended wait times. Nursing protocol order have been performed and some of these are available for my review at the time of patient encounter. Patient's blood work is as above and was reviewed. Her white blood cell count is just under 12,000. She does not have significant anemia or gross electrolyte imbalance. The patient does have an elevated total bilirubin of 1.6, as well as elevated LFTs. Because of this she was sent to ultrasound for further evaluation. Case was discussed with case management, who was able to find an ultrasound that was performed about 10 days ago through the [facility] [employer] system. At that time the patient did have some gallstones as well as a nondilated common bile duct of 5 mm. Ultrasound today was reviewed by myself and radiology. Her ultrasound today does show a dilated bile duct of roughly 10 mm as well as pericholecystic fluid and gallbladder wall thickening concerning for acute cholecystitis. I did reach out to the on-call [facility] hospitalist, Dr. Ivy, who does recommend medicine admit for ERCP before he will take her to the OR for cholecystectomy. The patient was given IV Zosyn here in the ER. COVID swab was performed. Case was ultimately discussed with Dr. Taylor, who will evaluate the patient for admission. Please see Dr. Taylor's dictation for further patient course, plan, and disposition. The chart was completed utilizing [employer] Speech Voice Recognition Software. Grammatical errors, random word insertions, pronoun errors, and incomplete sentences are an occasional consequence of this system due to software limitations, ambient noise, and hardware issues. Any formal questions or concerns about the content, text, or information contained within the body of this dictation should be directly addressed to the provider for clarification. . Impression & Plan Acute cholecystitis, Elevated liver enzymes Discharge Plan Visit Data Chief Complaint: Abdominal Pain Stated Complaint: ABDOMINAL PAIN ED Provider: Pam Iraheta ED Midlevel Provider: Gonzalez Camara Discharge Problem: Acute cholecystitis, Elevated liver enzymes Patient Disposition: Being Evaluated by Hospitalist Forms Stand Alone Forms: My [facility] Prescriptions Prescriptions: No Action [id number] 1 mg Tablet 1 tab PO DAILY Vitron-C 65 mg iron- 125 mg Tablet,Delayed Release (Dr/Ec) 1 tab PO DAILY ibuprofen 600 mg Tablet 600 mg PO Q6H PRN (Reason: fever or pain) Qty: 30 2RF Referrals Referrals: Mehnaz Capone DO [Primary Care Provider] -
--- NOTE | 2022-10-13 06:54 | Ultrasound Report ---
ULTRASOUND RIGHT UPPER QUADRANT ABDOMEN CLINICAL HISTORY: Right upper quadrant abdominal pain. Elevated hepatic transaminases. COMPARISON STUDY: Abdominal CT dated 09/12/2022 TECHNIQUE: Real-time, grayscale, and color flow sonography of the right upper quadrant of the abdomen was performed. Images are reviewed in the transverse and longitudinal planes. FINDINGS: Liver: The liver is normal in size and echotexture. There is mild intrahepatic biliary ductal dilatat ion. The main portal vein is patent. Gallbladder: The gallbladder is distended. No gallstones are identified. There is trace pericholecyst ic fluid. The gallbladder wall is mildly thickened and edematous measuring up to 4 mm. A sonographic Arana's sign could not be assessed as the patient received analgesia. The common bile duct is dilate d, measuring up to 1.0 cm in diameter. Pancreas: Visualized portions of the pancreatic head and body are normal in appearance. The splenic v ein is patent. Right kidney: Survey images of the right kidney demonstrate normal size and echotexture. There is no hydronephrosis. Ascites: None. IMPRESSION: The gallbladder is distended and the wall appears mildly thickened and edematous. No sha dowing gallstones are identified. There is trace pericholecystic fluid. A sonographic Arana's sign c ould not be assessed. There is also intra and extrahepatic biliary ductal dilatation. Findings are dixon spicious for acute cholecystitis. Surgical consultation is advised. If warranted, a nuclear hepatobil iary scan could be considered for further assessment. ACT 112: Negative or not required by law. Electronically signed by: True Bacon M.D. 10/13/2022 6:52 AM
[2022-10-13] MEDS ORDERED: PIPERACILLIN/TAZOBACTAM 4.5 GM/120 ML BAG IV ONE (07:15)
--- NOTE | 2022-10-13 07:48 | History & Physical Report ---
Date of Service October 13, 2022 Assessment & Plan (1) Acute cholecystitis: (2) Elevated liver enzymes: (3) state: Plan Ms Dori Giraldo is a 32 year old female with history of PCOS, biliary colic, who is 5 weeks post here with progressively worsening RUQ pain with nausea/vomiting/chills found to have acute cholecystitis with biliary ductal dilation. Acute Cholecystitis Biliary Duct Dilation -Keep NPO -Case already discussed by ER with surgery -GI consulted -IVF : D5 NSS at 80 cc/hr -Morphine 2mg IV Q 3 PRN -Zophran PRN -POC urine test negative Concern for early sepsis -Mild leukocytosis, +chills -Will be on zosyn as above DVT ppx SCDs No AC with anticipation of need for intervention within the next 24 hours Observation for now History of Present Illness Chief Complaint: RUQ pain Primary Care Provider: Mehnaz Capone DO Ms Dori Giraldo is a 32 year old female with history of PCOS, biliary colic, who is about 5 weeks post presents today with progressively worsening 3 days of right upper quadrant pain associated with chills, nausea/vomiting. She began experiencing intermittent RUQ pain since last summer but at the time she was in her second trimester of and it was believed to be related. Her pain got more frequent during her third trimester. After she had her baby in late August 2022, she continued to have the pain and she had an outpatient u/s which revealed gall stones. She is scheduled for an elective lap levy with Dr Pantera Kenyon on 11/01/2022. Upon arrival to the ER, vitals are: T 36.9, HR 61, RR 20, BP 101/77, 100% on RA. Labwork significant for WBC 11.9, Hb 12.4, Plt 257, T bili 1.6, AST 173, ALT 112, ALP 196. Urinalysis +LE, -nitrite -bacteria ER course- zosyn, 1L NSS, zofran, morphine Home Medications Medication Instructions Recorded Confirmed Type iron,carbonyl 65 mg-vitamin C 125 1 tab PO DAILY 09/05/22 09/05/22 History mg tablet,delayed release (Vitron-C) [id number]-FA 1 mg 1 tab PO DAILY 09/05/22 09/05/22 History tablet ibuprofen 600 mg tablet 600 mg PO Q6H PRN fever or pain 09/08/22 Rx #30 tabs Past Med/Surg History Medical History Gestational diabetes mellitus diet controlled Infertility used clomid to get PCOS (polycystic ovarian syndrome) no meds Surgical History No history of previous surgery Social History Smoking Status: Never smoker Hx Alcohol Use: No Hx Substance Use: No Preferred Language: Cymraes Coarse Wire Drawer Required: No Beliefs That Will Affect Care: None marital status: marital status details: Mohan Alexander Current Living Situation: Spouse 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: Works at [employer] at [employer] Feels Safe at Home: Yes Assistive Devices: None Review of Systems Review of Systems: As above in HPI. Remaining ROS otherwise negative Physical Exam Physical Exam: Appears well, non toxic no acute distress, pleasant ENMT: Normocephalic, atraumatic, mucous membrane moist Respiratory: Breathing comfortably on room air, no wheezing/rhonchi/rales Cardiovascular: Regular rate and rhythm, no murmurs/rubs Gastrointestinal (Abdomen): soft, non tender, hypoactive bowel sounds (patient had just received morphine in ER) Musculoskeletal: No edema, no cyanosis or clubbing, no calve tenderness Skin: No rash noted, no ulcer, no bruising Neurologic: awake, alert, answering questions appropriately, spontaneously moving extremities Results & Data Results & Data ([facility]) Vital Signs (Past 12 Hours) Vital Signs Temp Pulse Pulse Resp BP BP Pulse Ox 10/13/22 07:40 61 20 101/77 100 10/13/22 04:02 10/13/22 00:06 36.9 C 57 L 16 143/87 H 100 O2 Del Method 10/13/22 07:40 Room Air 10/13/22 04:02 Room Air 10/13/22 00:06 Room Air
--- NOTE | 2022-10-13 09:21 | Surgery Consultation ---
Date of Consultation October 13, 2022 Assessment & Plan (1) Acute cholecystitis: pt is a 32 year-old female who presents to Er with acute RUQ pain, IMP: acute cholecystitis, elevated LFTs Plan, base on pt's H/P labs, most likely CBD stone, recommend GI consult , ERCP, then I will do laparoscopic cholecystectomy possible open, or cholangiogram at same time, D/W benefits, risks and alternatives of the surgery, the risks - infection, bleeding, injury other organs, incisional hernia, pt understood, she agreed with surgery, she signed informed consent, I answered all questions, pre- op antibiotic, History of Present Illness Reason for Consultation: acute cholecystitis Requesting Physician: Hoa Roth PA-C History of Present Illness History of Present Illness Chief Complaint: RUQ pain Primary Care Provider: Mehnaz Capone DO Ms Dori Giraldo is a 32 year old female with history of PCOS, biliary colic, who is about 5 weeks post presents today with progressively worsening 3 days of right upper quadrant pain associated with chills, nausea/vomiting. She began experiencing intermittent RUQ pain since last summer but at the time she was in her second trimester of and it was believed to be related. Her pain got more frequent during her third trimester. After she had her baby in late August 2022, she continued to have the pain and she had an outpatient u/s which revealed gall stones. She is scheduled for an elective lap levy with Dr Pantera Kenyon on 11/01/2022. Upon arrival to the ER, vitals are: T 36.9, HR 61, RR 20, BP 101/77, 100% on RA. Labwork significant for WBC 11.9, Hb 12.4, Plt 257, T bili 1.6, AST 173, ALT 112, ALP 196. Urinalysis +LE, -nitrite -bacteria ER course- zosyn, 1L NSS, zofran, morphine I ( Tang Ivy MD ) got a call for consult acute cholecystitis, I reviewed pt's H/P, labs and U/S study with pt, Home Medications Medication Instructions Recorded Confirmed Type iron,carbonyl 65 mg-vitamin C 125 1 tab PO DAILY 09/05/22 History mg tablet,delayed release (Vitron-C) [id number]-[id number]-[id number]-FA 1 mg 1 tab PO DAILY 09/05/22 2 History tablet ibuprofen 600 mg tablet 600 mg PO Q6H PRN fever or pain 09/08/22 Rx #30 tabs Past Med/Surg History Medical History Gestational diabetes mellitus diet controlledInfertility used clomid to get PCOS (polycystic ovarian syndrome) no meds Surgical History No history of previous surgery Social History Smoking Status: Never smoker Hx Alcohol Use: No Hx Substance Use: No 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: No Beliefs That Will Affect Care: None marital status: marital status details: Mohan Alexander Current Living Situation: Spouse 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: Works at [employer] at [employer] Feels Safe at Home: Yes Assistive Devices: None Review of Systems Review of Systems: As above in HPI. Remaining ROS otherwise negative Home Medications Medication Instructions Recorded Confirmed Type iron,carbonyl 65 mg-vitamin C 125 1 tab PO DAILY 09/05/22 09/05/22 History mg tablet,delayed release (Vitron-C) [id number]-mwl-Ua-FA 1 mg 1 tab PO DAILY 09/05/22 09/05/22 History tablet ibuprofen 600 mg tablet 600 mg PO Q6H PRN fever or pain 09/08/22 Rx #30 tabs Patient History Medical History Gestational diabetes mellitus diet controlled Infertility used clomid to get PCOS (polycystic ovarian syndrome) no meds Surgical History No history of previous surgery Social History Smoking Status: Never smoker Hx Alcohol Use: No Hx Substance Use: No 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: No Beliefs That Will Affect Care: None marital status: marital status details: Mohan Alexander Current Living Situation: Spouse 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 [employer] Feels Safe at Home: Yes Assistive Devices: None Review of Systems Constitutional: as per Subjective / HPI Eyes: as per Subjective / HPI Respiratory: as per Subjective / HPI Cardiovascular: as per Subjective / HPI Gastrointestinal: gallstone Genitourinary: state Musculoskeletal: as per Subjective / HPI Neurologic: as per Subjective / HPI Psychiatric: as per Subjective / HPI Endocrine: as per Subjective / HPI Hematologic / Lymphatic: as per Subjective / HPI Physical Exam Constitutional: WD/WN, vitals as above Eyes: PERRL, conjunctivae normal, anicteric sclerae Neck: trachea midline, no thyromegaly Respiratory: normal respiratory effort, lungs clear to auscultation Cardiovascular: RRR, no murmur, no edema Gastrointestinal (Abdomen): soft, mild tenderness at RUQ, no rebound pain, no distend, BS + Musculoskeletal: no cyanosis or clubbing, extremities motor strength 5/5 Neurologic: patellar DTR's 2+ bilat, sensation intact Psychiatric: A+Ox3, euthymic affect Results & Data ([facility]) Vital Signs (Past 12 Hours) Vital Signs Temp Pulse Pulse Resp BP BP Pulse Ox 10/13/22 07:40 61 20 101/77 100 10/13/22 04:02 10/13/22 00:06 36.9 C 57 L 16 143/87 H 100 O2 Del Method 10/13/22 07:40 Room Air 10/13/22 04:02 Room Air 10/13/22 00:06 Room Air Laboratory Results Abnormal lab results 10/13/22 10/13/22 10/13/22 Range/Units 01:33 01:39 01:39 WBC 11.91 H (4.8-10.8) K/ul Neut # (Auto) 8.79 H (1.40-6.50) K/uL [place] # (Auto) 0.64 H (0.11-0.59) K/uL Glucose 112 H (70-99(Fasting)) mg/dl Total Bilirubin 1.6 H (0.2-1.0) mg/dl AST 173 H (13-39) U/L ALT 112 H (7-52) U/L Alkaline Phosphatase 196 H (34-104) U/L Ur Specific [place] 1.037 H (1.000-1.030) Urine Protein Trace H (Negative) Urine Ketones Trace H (Negative) Urine Bilirubin 1+ H (Negative) Ur Leukocyte Esterase Trace H (Negative) Urine WBC (Auto) 10-30 H (0-5) /hpf U Epithel Cells (Auto) 10-20 H (0-5) /lpf Calcium Oxalate Crystal Present A (None Prsent) Diagnostic Findings ULTRASOUND RIGHT UPPER QUADRANT ABDOMEN CLINICAL HISTORY: Right upper quadrant abdominal pain. Elevated hepatic transaminases. COMPARISON STUDY: Abdominal CT dated 09/12/2022 TECHNIQUE: Real-time, grayscale, and color flow sonography of the right upper quadrant of the abdomen was performed. Images are reviewed in the transverse and longitudinal planes. FINDINGS: Liver: The liver is normal in size and echotexture. There is mild intrahepatic biliary ductal dilatation. The main portal vein is patent. Gallbladder: The gallbladder is distended. No gallstones are identified. There is trace pericholecystic fluid. The gallbladder wall is mildly thickened and edematous measuring up to 4 mm. A sonographic Arana's sign could not be assessed as the patient received analgesia. The common bile duct is dilated, measuring up to 1.0 cm in diameter. Pancreas: Visualized portions of the pancreatic head and body are normal in appearance. The splenic vein is patent. Right kidney: Survey images of the right kidney demonstrate normal size and echotexture. There is no hydronephrosis. Ascites: None. IMPRESSION: The gallbladder is distended and the wall appears mildly thickened and edematous. No shadowing gallstones are identified. There is trace pericholecystic fluid. A sonographic Arana's sign could not be assessed. There is also intra and extrahepatic biliary ductal dilatation. Findings are suspicious for acute cholecystitis. Surgical consultation is advised. If warranted, a nuclear hepatobiliary scan could be considered for further assessment. ACT 112: Negative or not required by law.
[2022-10-13] MEDS ORDERED: DEXAMETHASONE SOD INJ 4 MG/ML VIAL ONE (10:33)
[2022-10-13] MEDS ORDERED: NEOSTIGMINE METHYLSULFATE 1 MG/ML 10ML VIAL ONE (10:33)
[2022-10-13] MEDS ORDERED: ONDANSETRON INJ 2 MG/ML 2 ML VIAL ONE ×2 (10:33→12:26)
[2022-10-13] MEDS ORDERED: fentaNYL citrate 100 MCG/2 ML VIAL ONE ×2 (10:33→12:27)
[2022-10-13] MEDS ORDERED: GLYCOPYRROLATE 0.2 MG/ML VIAL ONE (10:33)
[2022-10-13] MEDS ORDERED: PROPOFOL IV EMULSION 10 MG/ML 20 ML VIAL IV ONE (10:33)
[2022-10-13] MEDS ORDERED: MIDAZOLAM HCL 1 MG/ML 2ML VIAL ONE (10:33)
--- NOTE | 2022-10-13 10:36 | Gastrointestinal Consultation ---
Date of Consultation October 13, 2022 Assessment & Plan (1) Dilation of common bile duct: Likely secondary to choledocholithiasis (2) Elevated liver enzymes: Likely secondary to choledocholithiasis and cholecystitis. Plan 1. Plan for ERCp today by Dr. Khan. Procedure, risks and benefits discussed w the pt and her . They would like to go forward with the procedure. 2. Appreciate surgical opinion and plan for cholecystectomy. 3. Please keep Pt NPO. Supervising Physician Co-Signing Physician Notes I performed a history and physical examination of the patient today, including specifically on physical exam - soft abdomen. I have discussed the patient's management with the advanced practitioner. Please refer to the nurse practitioner's note for the documented findings and plan of care. EUS/ERCP Patient was explained in detail regarding risks, benefits, limitations and alternatives of the above endoscopic procedure. Risks of intravenous sedation used for procedure were also explained. Risks include, but not limited to pancreatitis perforation, bleeding, infection, respiratory distress, cardiac arrest and . Patient is also aware about the possibility of missed lesion. Patient's questions were answered. The patient verbalized understanding the information and agreed to undergo the procedure. History of Present Illness Reason for Consultation: acute levy, dilated bile ducts Requesting Physician: Dr. Taylor Attending Physician: Dr. Khan History of Present Illness Ms. Amina Sánchez is a 32 yr old female pt of Dr. Mehnaz Capone w a hx of gestational dx, of her first child in August, but otherwise healthy young women who has been having intermittent episodes of diffuse abd pain, somet imes w nausea/vomiting since last summer. A recent OP US showed gallstones and she is scheduled for an OP cholecystectomy. She experienced another episode of this pain last night after dinner and presented to the ED where LFTs are elevated: T Bili 1.6, AST 173, ALT 112, Alk Phos 196 (these were normal a few weeks ago). GB US today w a dilated CBD at 1cm. The pt is currently pain free. She denies any recent fevers/chills/sweats, has not had dark urine and hasn't had recent N/V. Home Medications Medication Instructions Recorded Confirmed Type iron,carbonyl 65 mg-vitamin C 125 1 tab PO DAILY 09/05/22 09/05/22 History mg tablet,delayed release (Vitron-C) iytpjeda-lib-Yo-FA 1 mg 1 tab PO DAILY 09/05/22 09/05/22 History tablet ibuprofen 600 mg tablet 600 mg PO Q6H PRN fever or pain 09/08/22 Rx #30 tabs Patient History Medical History Gestational diabetes mellitus diet controlled Infertility used clomid to get PCOS (polycystic ovarian syndrome) no meds Surgical History No history of previous surgery Social History Smoking Status: Never smoker Hx Alcohol Use: No Hx Substance Use: No 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 Required: No Beliefs That Will Affect Care: None marital status: marital status details: Mohan Alexander Current Living Situation: Spouse 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 [employer] Feels Safe at Home: Yes Assistive Devices: None Review of Systems Review of Systems: ROS: Gen: Denies weakness, fevers, + post prandial weight loss Eyes: No eye redness, or pain, no recent vision changes Resp: No SOB, no cough Cardio: No palpitations/irregular beats, no chest pain GI: As per HPI, otherwise (-) : Denies pain on urination Skin: No jaundice, itching or new rashes Hem: no excessive bleeding/bruising. Physical Exam Constitutional: WD/WN, vitals as above Eyes: PERRL, conjunctivae normal, anicteric sclerae ENMT: external ear and nose normal, oropharynx normal Neck: trachea midline, no thyromegaly Respiratory: normal respiratory effort, lungs clear to auscultation Cardiovascular: RRR, no murmur, no edema Gastrointestinal (Abdomen): Inspection/Auscultation: abdomen normal to inspection and normal bowel sounds; abdomen not distended Percussion/Palpation: + abdomen tender (RUQ tenderness), abdomen soft and + hepatosplenomegaly; no hepatomegaly Musculoskeletal: no cyanosis or clubbing, extremities motor strength 5/5 Skin: no rashes, warm and dry Neurologic: PERRL, EOMI, accommodation nl, no face palsy, no dysarthria Psychiatric: A+Ox3, euthymic affect Lymphatic: no cervical or axillary lymphadenopathy Results & Data ([facility]) Vital Signs (Past 12 Hours) Vital Signs Temp Pulse Pulse Resp BP BP Pulse Ox 10/13/22 07:40 61 20 101/77 100 10/13/22 04:02 10/13/22 00:06 36.9 C 57 L 16 143/87 H 100 O2 Del Method 10/13/22 07:40 Room Air 10/13/22 04:02 Room Air 10/13/22 00:06 Room Air Laboratory Results WBC 10.5, Hb 10.5, Hct 31.5, Plts 267, Na 139, K 3.8, Cl 104, Co2 28, BUN 10, Cr 0.8, glucose 99. T Bili 1.6, AST 173, ALT 112, Alk Phos 196, Lipase normal. Diagnostic Findings Gallbladder US 10/13/22: The gallbladder is distended and the wall appears mildly thickened and edematous. No shadowing gallstones are identified. There is trace pericholecystic fluid. A sonographic Arana's sign could not be assessed. There is also intra and extrahepatic biliary ductal dilatation. Findings are suspicious for acute cholecystitis. Surgical consultation is advised. If warranted, a nuclear hepatobiliary scan could be considered for further assessment. OP US 10/03/22: Gallbladder: Not abnormally distended. Scattered there is a intraluminal mobile calculus identified which measures approximately 5 mm greatest diameter. There is no significant intraluminal sludge. Suspected small fold or septations are incidentally seen. There is no current ultrasound evidence acute cholecystitis. There is no intrahepatic biliary dilatation. There is no extrahepatic biliary dilatation with common duct measuring approximately 5 mm. There is no gross choledocholithiasis. Liver: Size length: Right lobe approximate 16.9 cm; enlarged.
[2022-10-13] MEDS ORDERED: ePHEDrine sulfate 50 MG/ML AMP IV PRN (10:53)
[2022-10-13] MEDS ORDERED: fentaNYL citrate 100 MCG/2 ML VIAL IV PRN (10:53)
[2022-10-13] MEDS ORDERED: ATROPINE SULFATE 0.1 MG/ML 10ML SYR IV PRN (10:53)
[2022-10-13] MEDS ORDERED: HYDROmorphone INJ 2 MG/ML SYR/VIAL IV PRN (10:53)
[2022-10-13] MEDS ORDERED: ONDANSETRON INJ 2 MG/ML 2 ML VIAL IV PRN ×2 (10:53→15:11)
--- NOTE | 2022-10-13 10:53 | Anesthesiology Consultation ---
Date of Service October 13, 2022 Assessment & Plan ASA ASA2E Proposed Anesthesia Anesthesia Type: General Risk / Benefits Reviewed With: PT / POA / Parent / Guardian, Accepts Plan and Informed Consent Obtained Additional Comments: 5weeks post , early sepsis. so pt is emergent History Surgery Operation Date: 10/13/22 13:20 Proposed Procedures p Endoscopic Retrograde Cholangiopancreatogram - Mita Khan MD s Endoscopic Ultrasonography Upper - Mita Khan MD s Laparoscopic Cholecystectomy - Tang Ivy MD Height/Weight Height: 5 ft 4 in Weight: 81.6 kg Medications Home Medications Medication Instructions Recorded Confirmed Last Taken iron,carbonyl 65 mg-vitamin C 125 1 tab PO DAILY 09/05/22 09/05/22 09/04/22 09:00 mg tablet,delayed release (Vitron-C) [id number]-rpr-Na-FA 1 mg 1 tab PO DAILY 09/05/22 09/05/22 09/03/22 09:00 tablet ibuprofen 600 mg tablet 600 mg PO Q6H PRN fever or pain 09/08/22 Unknown #30 tabs Active Medications Generic Name Dose Route Start Last Admin Trade Name Freq PRN Reason Stop Dose Admin Morphine Sulfate 4 mg 10/13/22 03:27 10/13/22 04:04 Morphine Sulfate 4 Mg/Ml 1 Ml Carp\Vial IV 10/27/22 03:26 4 mg Q30M PRN Administration Pain NPO Date Last Intake of Fluids: 10/12/22 Time Last Intake of Fluids: 21:00 Date Last Intake of Solids: 10/12/22 Time Last Intake of Solids: 18:00 Past Medical History Medical History Gestational diabetes mellitus diet controlled Infertility used clomid to get PCOS (polycystic ovarian syndrome) no meds Exercise / Class Metabolic Activity II 4-5 Yardwork/Stairs/Walk up hill Past Surgical History Surgical History No history of previous surgery Past Anesthesia History No Hx of Anesthesia Complications and No Family Hx of Anesthesia Complications History of PONV No Hx of PONV and No Hx of Motion Sickness Social History Smoking Status: Never smoker Hx Alcohol Use: No Hx Substance Use: No substance use type: does not use Review of Systems denies fever/cough/ colds/ chest pain/ SOB/ BOLIVAR denies BOLIVAR Physical Exam Vital Signs Last Vital Signs Temp 36.8 C 10/13/22 10:43 Pulse 57 L 10/13/22 10:43 Resp 20 10/13/22 10:43 BP 111/77 10/13/22 10:43 Pulse Ox 100 10/13/22 10:43 O2 Del Method 10/13/22 10:43 ENMT Mouth: no TMJ abnormality and no dentition abnormality Thyromental Distance: > or= 3.5 Finger Breadths Mallampati Class: IV Neck neck extension not limited Respiratory normal respiratory effort; no respiratory distress Auscultation: lungs clear to auscultation bilaterally Cardiovascular Rate/Rhythm: regular rate and regular rhythm Neurologic moves all extremities Psychiatric Orientation: alert and oriented x 3 Testing Laboratory Results 10/13/22 01:39 10/13/22 01:39 Urine Color Dark Yellow 10/13/22 01:33 Urine Appearance Clear (Clear) 10/13/22 01:33 Urine pH 6.0 (4.5-7.5) 10/13/22 01:33 Ur Specific [place] 1.037 (1.000-1.030) H 10/13/22 01:33 Urine Protein Trace (Negative) H 10/13/22 01:33 Urine Glucose (UA) Negative (Negative) 10/13/22 01:33 Urine Ketones Trace (Negative) H 10/13/22 01:33 Urine Nitrite Negative (Negative) 10/13/22 01:33 Ur Leukocyte Esterase Trace (Negative) H 10/13/22 01:33 Urine WBC (Auto) 10-30 /hpf (0-5) H 10/13/22 01:33 Urine RBC (Auto) 0-4 /hpf (0-4) 10/13/22 01:33 U Hyaline Cast (Auto) 0 /lpf (0-5) 10/13/22 01:33 U Epithel Cells (Auto) 10-20 /lpf (0-5) H 10/13/22 01:33 Urine Bacteria (Auto) Negative (Negative) 10/13/22 01:33 10/13/22 01:33 POC Ur Test NEG
--- NOTE | 2022-10-13 11:15 | History & Physical Bridge Note ---
Date of Service October 13, 2022 History & Physical Bridge Note I have examined the patient, reviewed the History & Physical and in the interval since the performance of the History & Physical I have noted the following changes of clinical significance: no changes noted Supervising Physician Co-Signing Physician Notes I performed a history and physical examination of the patient today, including specifically on physical exam - soft abdomen. I have discussed the patient's management with the advanced practitioner. Please refer to the nurse practitioner's note for the documented findings and plan of care. EUS/ERCP Patient was explained in detail regarding risks, benefits, limitations and alternatives of the above endoscopic procedure. Risks of intravenous sedation used for procedure were also explained. Risks include, but not limited to pancreatitis perforation, bleeding, infection, respiratory distress, cardiac arrest and . Patient is also aware about the possibility of missed lesion. Patient's questions were answered. The patient verbalized understanding the information and agreed to undergo the procedure.
[2022-10-13] MEDS ORDERED: LIDOCAINE 1% LOCAL 20 ML VIAL ONE (11:29)
[2022-10-13] MEDS ORDERED: BACITRACIN OINT 15 GM TUBE ONE (11:29)
[2022-10-13] MEDS ORDERED: BUPIVACAINE 0.5 % 5 MG/1 ML MPF 30ML VIAL ONE (11:29)
[2022-10-13] MEDS ORDERED: INDOMETHACIN 50 MG SUPP PR ONE (11:45)
--- NOTE | 2022-10-13 12:17 | Operative Report ---
Post Operative Report Pre & Post Diagnosis Operation Date: 10/13/22 13:20 Pre-Op Diagnosis: ABDOMINAL PAIN Post-Op Diagnosis: CBD sludge with stent placement I identified the patient and participated in the time-out.: Yes Procedure Operation Date: 10/13/22 13:20 Actual Procedures p Esophagogastroduodenoscopy - Mita Khan MD s Endoscopic Ultrasonography Upper - Mita Khan MD p Endoscopic Retrograde Cholangiopancreato - Mita Khan MD Surgeon Mita Khan MD Reel Slitter None Estimated Blood Loss 0 Findings See Below (Biliary sludge removed, stent placed) Specimens None Description of Procedure EUS/ERCP I attest to the content of the Intraoperative Record and any orders documented therein. Any exceptions are noted below.
--- NOTE | 2022-10-13 12:19 | GI REPORT ---
Patient Name: Dori Sánchez Procedure Date: 10/13/2022 10:56 AM Date of : 1990 Admit Type: Emergency Department Age: 32 Gender: Female Attending MD: Mita Khan MD, Procedure: Upper GI endoscopy Providers: Mita Khan MD Referring MD: Pam Iraheta Indications: Abdominal pain Medicines: General Anesthesia Complications: No immediate complications. Estimated Blood Loss: Estimated blood loss: none. Procedure: Pre-Anesthesia Assessment: - Prior to the procedure, a History and Physical was performed, and patient medications, allergies and sensitivities were reviewed. The patient's tolerance of previous anesthesia was reviewed. - The risks and benefits of the procedure and the sedation options and risks were discussed with the patient. All questions were answered and informed consent was obtained. - Patient identification and proposed procedure were verified prior to the procedure by the physician and the nurse. The procedure was verified in the procedure room. - Pre-procedure physical examination revealed no contraindications to sedation. After obtaining informed consent, the endoscope was passed under direct vision. Throughout the procedure, the patient's blood pressure, pulse, and oxygen saturations were monitored continuously. The Endoscope was introduced through the mouth, and advanced to the second part of duodenum. The upper GI endoscopy was accomplished without difficulty. The patient tolerated the procedure well. Findings: The examined esophagus was normal. The entire examined stomach was normal. The duodenal bulb and second portion of the duodenum were normal. Impression: - Normal esophagus. - Normal stomach. - Normal duodenal bulb and second portion of the duodenum. - No specimens collected. Recommendation: - Perform an upper endoscopic ultrasound (UEUS) today. Mita Khan MD 10/13/2022 12:19:11 PM This report has been signed electronically. Note Initiated On: 10/13/2022 10:56 AM Number of Addenda: 0 I attest to the content of the Intraoperative Record and orders documented therein, exceptions below {[id number]}
[2022-10-13] MEDS ORDERED: ROCURONIUM BROMIDE 10 MG/ML 5 ML VIAL IV ONE (12:21)
--- NOTE | 2022-10-13 12:22 | GI REPORT ---
Patient Name: Dori Sánchez Procedure Date: 10/13/2022 10:58 AM Date of : 1990 Admit Type: Emergency Department Age: 32 Gender: Female Attending MD: Mita Khan MD, Procedure: Upper EUS Providers: Mita Khan MD Referring MD: Tang Salazar . Md Indications: Suspected choledocholithiasis Medicines: General Anesthesia Complications: No immediate complications. Estimated Blood Loss: Estimated blood loss: none. Procedure: Pre-Anesthesia Assessment: - Prior to the procedure, a History and Physical was performed, and patient medications, allergies and sensitivities were reviewed. The patient's tolerance of previous anesthesia was reviewed. - The risks and benefits of the procedure and the sedation options and risks were discussed with the patient. All questions were answered and informed consent was obtained. - Patient identification and proposed procedure were verified prior to the procedure by the physician and the nurse. The procedure was verified in the procedure room. - Pre-procedure physical examination revealed no contraindications to sedation. After obtaining informed consent, the endoscope was passed under direct vision. Throughout the procedure, the patient's blood pressure, pulse, and oxygen saturations were monitored continuously. The scope was introduced through the mouth, and advanced to the second part of duodenum. The upper EUS was accomplished without difficulty. The patient tolerated the procedure well. Findings: ENDOSONOGRAPHIC FINDING: : There was no sign of significant endosonographic abnormality in the ampulla. No masses were identified. There was dilation in the common bile duct which measured up to 10 mm. Moderate hyperechoic material consistent with sludge was visualized endosonographically in the common bile duct and in the gallbladder. There was thickening of the wall of the gallbladder. There was no sign of significant endosonographic abnormality in the visualized portion of the liver. Homogeneous parenchyma was identified. There was no sign of significant endosonographic abnormality in the entire pancreas. The pancreatic duct measured up to 2 mm in diameter. There was no sign of significant endosonographic abnormality in the visualized portion of the left adrenal gland. There was no sign of significant endosonographic abnormality involving the celiac trunk. Impression: - There was no sign of significant pathology in the ampulla. - There was dilation in the common bile duct which measured up to 10 mm. - Hyperechoic material consistent with sludge was visualized endosonographically in the common bile duct and in the gallbladder. - There was no evidence of significant pathology in the visualized portion of the liver. - There was no sign of significant pathology in the entire pancreas. - Endosonographic images of the left adrenal gland were unremarkable. - The celiac trunk was endosonographically normal. Recommendation: - Perform an ERCP today. Mita Khan MD 10/13/2022 12:21:47 PM This report has been signed electronically. Note Initiated On: 10/13/2022 10:58 AM Number of Addenda: 0 I attest to the content of the Intraoperative Record and orders documented therein, exceptions below {[id number]}
[2022-10-13] MEDS ORDERED: KETOROLAC 30 MG/ML VIAL ONE (12:26)
--- NOTE | 2022-10-13 12:26 | GI REPORT ---
Patient Name: Dori Sánchez Procedure Date: 10/13/2022 10:57 AM Date of : 1990 Admit Type: Emergency Department Age: 32 Gender: Female Attending MD: Mita Khan MD, Procedure: ERCP Providers: Mita Khan MD Referring MD: Tang Salazar . Md Indications: Biliary sludge Medicines: General Anesthesia Complications: No immediate complications. Estimated Blood Loss: Estimated blood loss: none. Procedure: Pre-Anesthesia Assessment: - Prior to the procedure, a History and Physical was performed, and patient medications, allergies and sensitivities were reviewed. The patient's tolerance of previous anesthesia was reviewed. - The risks and benefits of the procedure and the sedation options and risks were discussed with the patient. All questions were answered and informed consent was obtained. - Patient identification and proposed procedure were verified prior to the procedure by the physician and the nurse. The procedure was verified in the procedure room. - Pre-procedure physical examination revealed no contraindications to sedation. After obtaining informed consent, the scope was passed under direct vision. Throughout the procedure, the patient's blood pressure, pulse, and oxygen saturations were monitored continuously. The Duodenoscope was introduced through the mouth, and advanced to the duodenum and used to inject contrast into the bile duct. The ERCP was accomplished without difficulty. The patient tolerated the procedure well. Findings: The metal cleaner film was normal. The esophagus was successfully intubated under direct vision. The scope was advanced to a normal major papilla in the descending duodenum without detailed examination of the pharynx, larynx and associated structures, and upper GI tract. The upper GI tract was grossly normal. A biliary pre-cut sphincterotomy was made with a monofilament needle knife using a freehand technique using ERBE electrocautery. There was no post-sphincterotomy bleeding. A 0.025 inch x 270 cm angled Visiglide wire was passed into the biliary tree. The short-nosed traction sphincterotome was passed over the guidewire and the bile duct was then deeply cannulated. Contrast was injected. I personally interpreted the bile duct images. Ductal flow of contrast was adequate. Image quality was adequate. Contrast extended to the main bile duct. Opacification of the entire biliary tree was successful. The maximum diameter of the ducts was 10 mm. The biliary sphincterotomy was extended with a monofilament traction (standard) sphincterotome using ERBE electrocautery. There was no post-sphincterotomy bleeding. The biliary tree was swept with an 11.5 mm balloon starting at the bifurcation. Sludge was swept from the duct. Pus was swept from the duct. One 7 Fr by 7 cm plastic biliary stent with a single external pigtail and a single internal pigtail was placed into the common bile duct. Bile flowed through the stent. The stent was in good position. Indomethacin 100 mg was given via suppository to decrease the risk of post-ERCP pancreatitis (PEP). Impression: - A biliary sphincterotomy was performed. - The biliary tree was swept and sludge and pus were found. - One plastic biliary stent was placed into the common bile duct. Recommendation: - [facility] care. - Repeat ERCP in 2 months to remove stent. Mita Khan MD 10/13/2022 12:26:30 PM This report has been signed electronically. Note Initiated On: 10/13/2022 10:57 AM Number of Addenda: 0 I attest to the content of the Intraoperative Record and orders documented therein, exceptions below {[id number]}
--- NOTE | 2022-10-13 12:55 | Fluoroscopy Report ---
[place] ERCP biliary ductal CLINICAL HISTORY: Cholecystitis. Assess for common bile duct stones. COMPARISON STUDY: Abdominal ultrasound 10/13/2022. FLUOROSCOPY TIME: 45 seconds FLUOROSCOPY IMAGES: 7 EXPOSURE DOSE: 16.57 mGy FINDINGS: The ampulla was cannulated and contrast was injected into the common bile duct. A balloon s weep was performed. Contrast is seen within the gallbladder. A common bile duct stent was placed and appears in good position. IMPRESSION: Fluoroscopic assistance as described above. ACT 112: Negative or not required by law. Electronically signed by: Noah Morales M.D. 10/13/2022 12:54 PM
[2022-10-13] MEDS ORDERED: SUGAMMADEX SODIUM 200 MG/2 ML VIAL IV ONE (13:39)
--- NOTE | 2022-10-13 14:02 | Post Operative Brief Note ---
Immediate Post Op Note v1 Date of Surgery October 13, 2022 Pre & Post Diagnosis Operation Date: 10/13/22 13:20 Pre-Op Diagnosis: ABDOMINAL PAIN, acute cholecystitis Post-Op Diagnosis: CBD sludge with stent placement, acute cholecystitis I identified the patient and participated in the time-out.: Yes Procedure Operation Date: 10/13/22 13:20 Actual Procedures p Esophagogastroduodenoscopy - Mita Khan MD s Endoscopic Ultrasonography Upper - Mita Khan MD p Endoscopic Retrograde Cholangiopancreato - Mita Khan MD s Laparoscopic Cholecystectomy(Not Applicable) - Tang Ivy MD Surgeon Tang Ivy MD [employer]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
--- NOTE | 2022-10-13 15:01 | Anesthesiology Progress Note ---
Date of Service October 13, 2022 Anesthesia Post Procedure Vital Signs Vital Signs: Temp Pulse Pulse Pulse Resp BP BP 10/13/22 14:40 36.3 C L 56 L 14 119/86 10/13/22 14:30 53 L 18 124/89 10/13/22 14:20 53 L 13 127/84 10/13/22 14:12 36.2 C L 58 L 12 120/85 10/13/22 10:43 36.8 C 57 L 20 111/77 10/13/22 07:40 61 20 101/77 10/13/22 04:02 10/13/22 00:06 36.9 C 57 L 16 143/87 H Pulse Ox O2 Del Method O2 Flow Rate 10/13/22 14:40 96 Room Air 10/13/22 14:30 100 Room Air 10/13/22 14:20 100 Oxymask 4 10/13/22 14:12 99 Oxymask 6 10/13/22 10:43 100 Room Air 10/13/22 07:40 100 Room Air 10/13/22 04:02 Room Air 10/13/22 00:06 100 Room Air Pain Intensity Abdomen: Pain Intensity: 5 Transfer of Care Handoff Completed per policy Notes Mental Status: alert / awake / arousable and participated in evaluation Patient Amnestic to Procedure: Yes Nausea / Vomiting: adequately controlled Pain: adequately controlled Airway Patency, RR, SpO2: stable & adequate BP & HR: stable & adequate Hydration State: stable & adequate Anesthetic Complications: no major complications apparent and Pt Satisfied with anesthetic care
[2022-10-13] MEDS ORDERED: MoRPHine SULFATE 2 MG/ML CARP IV PRN (15:11)
[2022-10-13] MEDS ORDERED: GLUCOSE 10 TAB/TUBE PO PRN (15:11)
[2022-10-13] MEDS ORDERED: GLUCAGON FOR INJ 1 MG VIAL SQ PRN (15:11)
[2022-10-13] MEDS ORDERED: POLYETHYLENE (MIRALAX) 17 GM PACK PO PRN (15:11)
[2022-10-13] MEDS ORDERED: CARBOHYDRATES FOR HYPOGLYCEMIA PO PRN (15:11)
[2022-10-13] MEDS ORDERED: D5W AND NSS 1,000 ML IV SCH (15:11)
[2022-10-13] MEDS ORDERED: DEXTROSE 50% 50 ML SYRINGE IV PRN (15:11)
[2022-10-13] MEDS ORDERED: GLUCOSE 40% GEL 15 GM TUBE PO PRN (15:11)
[2022-10-13] MEDS ORDERED: PIPERACILLIN/TAZOBACTAM 4.5 GM in DEXTROSE 5% 100 ML IV SCH (15:11)
[2022-10-13 15:42] LABS: Basophils # (auto) 0.04 K/uL (0-0.2); Basophils % (auto) 0.4 %; Eosinophils # (auto) 0.02 K/uL (0-0.50); Eosinophils % (auto) 0.2 %; Hematocrit (blood only) 35.9 % (37.0-47.0); Hemoglobin 11.8 g/dl (12.0-16.0); Immature Granulocytes # (auto) 0.19 K/uL (0.01-0.20); Immature Granulocytes % (auto) 1.7 %; Lymphocytes # (auto) 1.35 K/uL (1.2-3.4); Lymphocytes % (auto) 11.9 %; Mean Corpuscular Hemoglobin 29.7 pg (25.0-34.0); Mean Corpuscular Hgb Conc 32.9 g/dL (32.0-36.0); Mean Corpuscular Volume 90.4 fL (80.0-100.0); Mean Platelet Volume 9.9 fL (9.4-12.4); Monocytes # (auto) 0.15 K/uL (0.11-0.59); Monocytes % (auto) 1.3 %; Neutrophils # (auto) 9.62 K/uL (1.40-6.50); Neutrophils % (auto) 84.5 %; Platelet Count 192 K/uL (130-400); RDW Coefficient of Variation 12.8 % (11.5-14.5); RDW Standard Deviation 42.5 fL (36.4-46.3); Red Blood Count 3.97 M/uL (4.20-5.40); White Blood Count 11.37 K/ul (4.8-10.8)
[2022-10-13] MEDS: LACTATED RINGER'S 1,000 ML IV SCH ×2 (15:52→21:08)
[2022-10-13] MEDS: HYDROmorphone INJ 0.5 MG/0.5 ML SYR IV PRN (15:52)
[2022-10-13] MEDS: ceFAZolin 1000MG 1,000 MG/7.5 ML SYR IV SCH (16:23)
[2022-10-13] MEDS ORDERED: ACETAMINOPHEN 325 MG TAB PO PRN (16:28)
--- NOTE | 2022-10-13 19:13 | Operative Report (OR) ---
DATE OF PROCEDURE: 10/13/2022. PREOPERATIVE DIAGNOSIS: Acute cholecystitis. POSTOPERATIVE DIAGNOSIS: Acute cholecystitis. OPERATION: Laparoscopic cholecystectomy. SURGEON: Tang Ivy MD. ANESTHESIA: General. ESTIMATED BLOOD LOSS: About 10 mL. FINDINGS: Acute cholecystitis, significant inflammation on the gallbladder wall. COMPLICATIONS: None. INDICATIONS FOR THE PROCEDURE: This is a 32-year-old female, who presented to the ED with acute righ t upper quadrant pain. The patient had an ultrasound diagnosis of acute cholecystitis and dilated co mmon bile duct, elevated total bilirubin of 1.6, and I recommended to do laparoscopic cholecystectomy , possible open, possible cholangiogram. I did talk to the patient about the benefits, risks, and al ternate procedure. I indicated the risks may include, but not limited to, such as bleeding, infectio n, injury to other organs, and incisional hernia. The patient understands. She signed informed cons ent and I answered all questions. DESCRIPTION OF PROCEDURE: The patient had an ERCP done by the GI doctor. After GI doctor finished t he ERCP, she came to the OR to continue to do the laparoscopic cholecystectomy, and again the patient received SCDs on bilateral legs to prevent DVT. Also, the patient received 3.375 grams Zosyn IV for prophylactic antibiotic. Then, the patient was still in general anesthesia when I came to the OR ro om and the patient's abdomen was prepped and draped in routine sterile fashion. After timeout, I inj ected the local anesthesia by using 1% lidocaine mixed with 0.5% Marcaine just above the umbilicus. Then, I made a small incision just above umbilicus, opened fascia, opened peritoneum. Under direct v ision, put a Dhaval trocar in, connected to CO2 to create pneumoperitoneum, flow rate at 6 liters per minute, pressure not more than 14 mmHg. Once we got a nice pneumoperitoneum, we put a camera in, lo oked around the abdomen, it showed normal finding on the liver; however, the gallbladder showed signi ficant inflammation on the gallbladder wall with edema, confirmed diagnosis of acute cholecystitis. Once I confirmed diagnosis, I put another two 5 mm trocars on the right upper quadrant, one was a 12 trocar on the epigastric area. Once all trocars in, we used the grasper to hold the base of gallblad brad, put in the direction to the diaphragm, another grasper to hold the pouch of gallbladder, put a l ateral to explore the triangle of Calot. The cystic duct was identified and mobilized. At the cysti c duct, I put significant dilatation around 1 cm and after I mobilized the cystic duct, I put two 10 mm metal clips on the proximal cystic duct and one on the distal cystic duct. I then used a scissor for transection of cystic duct; rechecked, no bile leak. The cystic artery was identified and mobili zed. I put two 10 mm metal clips on the proximal cystic artery, one on the distal cystic artery, the n I used a scissor for transection of cystic artery; rechecked, no active bleeding. Then, we used th e Bovie to take down gallbladder from liver bed; rechecked, no active bleeding, no bile leak from genesis er bed. Then, we removed gallbladder through the catch bag. Then, we reinserted the Dhaval trocar i n, connected to CO2 to create pneumoperitoneum, again looked around the abdomen, no active bleeding, no bile leak from liver bed. Then, we removed all trocars under direct vision. No active bleeding f rom the trocar sites. Pneumoperitoneum was released. Then I closed the umbilical incision fascial l oleksandr by using 0 Vicryl [id number] x2, closed subcutaneous layer by using 2-0 Vicryl interruptedl y, closed skin by using 4-0 Vicryl continuous running, closed the epigastric incision and fascial lay er by using 0 Vicryl [id number] x2, closed subcutaneous layer by using 2-0 Vicryl interruptedly, closed skin by using 4-0 Vicryl interruptedly, closed another two 5 mm trocar sites of skin only by using 4-0 Vicryl. Then, we put the dressing on. The patient tolerated the procedure well. All inst rument, needles, and sponge counts were correct x2 at the end of the case. The patient was transferr ed to recovery room in stable condition. The specimen was sent to pathology. After the procedure, I did talk to the patient and the patient's family member about the OR finding and the procedure we bladimir quiroz, they understand. Job ID: [id number]
[2022-10-13] MEDS: oxyCODONE/ACETAMINOPHEN 5mg/325mg TAB PO PRN (20:02)
[2022-10-14] MEDS: ceFAZolin 1000MG 1,000 MG/7.5 ML SYR IV SCH ×3 (00:21→13:54)
[2022-10-14 06:36] LABS: Basophils # (auto) 0.03 K/uL (0-0.2); Basophils % (auto) 0.3 %; Eosinophils # (auto) 0.01 K/uL (0-0.50); Eosinophils % (auto) 0.1 %; Hematocrit (blood only) 32.6 % (37.0-47.0); Immature Granulocytes # (auto) 0.06 K/uL (0.01-0.20); Immature Granulocytes % (auto) 0.5 %; Lymphocytes # (auto) 2.19 K/uL (1.2-3.4); Lymphocytes % (auto) 18.6 %; Mean Corpuscular Hemoglobin 29.6 pg (25.0-34.0); Mean Corpuscular Hgb Conc 33.7 g/dL (32.0-36.0); Mean Corpuscular Volume 87.6 fL (80.0-100.0); Mean Platelet Volume 10.8 fL (9.4-12.4); Monocytes # (auto) 0.72 K/uL (0.11-0.59); Monocytes % (auto) 6.1 %; Neutrophils # (auto) 8.76 K/uL (1.40-6.50); Neutrophils % (auto) 74.4 %; Platelet Count 223 K/uL (130-400); RDW Coefficient of Variation 12.5 % (11.5-14.5); RDW Standard Deviation 40.2 fL (36.4-46.3); Red Blood Count 3.72 M/uL (4.20-5.40); White Blood Count 11.77 K/ul (4.8-10.8)
[2022-10-14] MEDS: oxyCODONE/ACETAMINOPHEN 5mg/325mg TAB PO PRN (06:36)
[2022-10-14 06:50] LABS: Albumin Globulin Ratio 1.4 (0.9-2); Albumin Level 3.3 gm/dl (3.4-5.0); BUN Creatinine Ratio 13.5 (10-20); Bilirubin,Total 0.8 mg/dl (0.2-1.0); Calcium 8.7 mg/dl (8.5-10.1); Creatinine Clr Calc Pharmacy 80.7 ml/min; Est GFR (African American) 82.9 ml/min; Est GFR (Non-African American) 71.5 ml/min; Globulin 2.3 gm/dl (2.5-4.0); Potassium 4.3 mmol/L (3.5-5.1); Total Protein 5.6 gm/dl (6.0-8.3)
--- NOTE | 2022-10-14 08:51 | Gastroenterology Progress Note ---
Date of Service October 14, 2022 Assessment & Plan (1) Choledocholithiasis with cholecystitis: Plan: W successful removal of stones/sludge during ERCP yesterday w/o any evidence of complications this normal. Plan 1. Repeat ERCP in 2 months to remove stent. Yesterday, Dr. Khan sent a message to our [facility] GI schedulers to arrange. 2. No GI contraindication to advancing diet. Defer to surgery. 3. Per Dr. Khan - no GI indication for antibiotics after discharge - defer to surgery. 4. Recommend that OP PCP recheck LFTs in a week or to two verify resolution of elevated transaminases. 5. GI will sign off. Please recall if questions/problems. Admission and Anticipated Discharge Date Admission Date: October 13, 2022 Subjective Post ERCP/Lap Brunilda yesterday. Had some nausea last night. Tolerated clear liq this morning w/o increased nausea or pain. Pt up and around independently ambulating and providing self care this morning. LFTs improved today. Review of Systems Review of Systems: ROS: Gen: Denies weakness, fevers, + post prandial weight loss Eyes: No eye redness, or pain, no recent vision changes Resp: No SOB, no cough Cardio: No palpitations/irregular beats, no chest pain GI: As per HPI, otherwise (-) : Denies pain on urination Skin: No jaundice, itching or new rashes Hem: no excessive bleeding/bruising. Physical Exam Constitutional: WD/WN, vitals as above Eyes: PERRL, conjunctivae normal, anicteric sclerae ENMT: external ear and nose normal, oropharynx normal Neck: trachea midline, no thyromegaly Respiratory: normal respiratory effort, lungs clear to auscultation Cardiovascular: RRR, no murmur, no edema Gastrointestinal (Abdomen): Inspection/Auscultation: + hypoactive bowel sounds; abdomen not distended Percussion/Palpation: + abdomen tender (very minimal, diffuse) and abdomen soft; no hepatomegaly Four small dressings in place over laparoscopic incisions. Small amt of blood soiling on the epigastric incision dressing otherwise no bleeding or discharge. Musculoskeletal: no cyanosis or clubbing, extremities motor strength 5/5 Skin: no rashes, warm and dry Neurologic: PERRL, EOMI, accommodation nl, no face palsy, no dysarthria Psychiatric: A+Ox3, euthymic affect Lymphatic: no cervical or axillary lymphadenopathy Results & Data ([facility]) Vital Signs (Past 12 Hours) Vital Signs Temp Pulse Pulse Resp BP Pulse Ox O2 Del Method 10/14/22 07:50 36.7 C 56 L 15 106/68 97 Room Air 10/14/22 03:18 36.6 C 54 L 16 135/74 98 Room Air 10/14/22 02:00 50 L 10/13/22 23:00 36.9 C 52 L 18 112/75 99 Room Air Laboratory Results WBC 11.7, Hb 11, Hct 32.6, Plts 233, Na 139, K .3, Cl 106, CO2 28, BN 14, Cr 1.04, glucose 131. T Bili 0.8, AST 71, ALT 99, Alk Phos 153. Diagnostic Findings EGD 10/13/22: normal EUS 10/14/22: There was dilation in the common bile duct which measured up to 10 mm. - Hyperechoic material consistent with sludge was visualized endosonographically in the common bile duct and in the gallbladder. ERCP 10/14/22: - A biliary sphincterotomy was performed. - The biliary tree was swept and sludge and pus were found. - One plastic biliary stent was placed into the common bile duct.
--- NOTE | 2022-10-14 09:57 | Surgery Progress Note ---
Date of Service October 14, 2022 Assessment & Plan (1) Acute cholecystitis: Plan: POD # 1 s/p ERCP with biliary stent placement and lap levy -avss - postop pain controlled - t. bili normalized, lfts improving Plan: advance to low fat diet continue pain management as needed okay from surgery standpoint for discharge today f/u surgery office in 2 weeks does not need antibiotics on discharge Dr. Ivy was present during my examination who agrees with above. Admission and Anticipated Discharge Date Admission Date: October 13, 2022 Subjective feeling good this morning preop pain resolved, soreness at incision sites controlled with Percocet nausea that night but resolved this am tolerated clear liquids no chest pain or shortness of breath Physical Exam Constitutional: WD/WN, vitals as above cooperative and comfortable; no acute distress and not ill appearing Neck: normal visual inspection and trachea midline Respiratory: normal respiratory effort; no respiratory distress, no labored breathing and no retractions Gastrointestinal (Abdomen): Inspection/Auscultation: abdomen normal to inspection and + abdominal surgical incision (covred with dressings, supxiphoid dressing with dried blood); abdomen not distended Percussion/Palpation: + abdomen tender (at incision sites) and abdomen soft; no guarding, abdomen not rigid and abdomen not firm Skin: no rashes, warm and dry Psychiatric: A+Ox3, euthymic affect Results & Data ([facility]) Vital Signs (Past 12 Hours) Vital Signs Temp Pulse Pulse Resp BP Pulse Ox O2 Del Method 10/14/22 07:50 36.7 C 56 L 15 106/68 97 Room Air 10/14/22 03:18 36.6 C 54 L 16 135/74 98 Room Air 10/14/22 02:00 50 L 10/13/22 23:00 36.9 C 52 L 18 112/75 99 Room Air Laboratory Results 10/14/22 10/14/22 10/13/22 Range/Units 05:33 05:33 21:34 WBC 11.77 H (4.8-10.8) K/ul RBC 3.72 L (4.20-5.40) M/uL Hgb 11.0 L (12.0-16.0) g/dl Hct 32.6 L (37.0-47.0) % MCV 87.6 (80.0-100.0) fL MCH 29.6 (25.0-34.0) pg MCHC 33.7 (32.0-36.0) g/dL RDW Std Deviation 40.2 (36.4-46.3) fL RDW Coeff of Claudio 12.5 (11.5-14.5) % Plt Count 223 (130-400) K/uL MPV 10.8 (9.4-12.4) fL Immature Gran % (Auto) 0.5 % Neut % (Auto) 74.4 % Lymph % (Auto) 18.6 % [place] % (Auto) 6.1 % Eos % (Auto) 0.1 % Baso % (Auto) 0.3 % Neut # (Auto) 8.76 H (1.40-6.50) K/uL Lymph # (Auto) 2.19 (1.2-3.4) K/uL [place] # (Auto) 0.72 H (0.11-0.59) K/uL Eos # (Auto) 0.01 (0-0.50) K/uL Baso # (Auto) 0.03 (0-0.2) K/uL Immature Gran # (Auto) 0.06 (0.01-0.20) K/uL Sodium 139 (136-145) mmol/L Potassium 4.3 (3.5-5.1) mmol/L Chloride 106 (98-107) mmol/L Carbon Dioxide 28 (21-32) mmol/L Anion Gap 5 (3-11) BUN 14 (6-23) mg/dl Creatinine 1.04 (0.6-1.2) mg/dl Est Cr Clr Drug Dosing 80.7 ml/min Est GFR ( Amer) 82.9 ml/min Est GFR (Non-Af Amer) 71.5 ml/min BUN/Creatinine Ratio 13.5 (10-20) Glucose 88 (70-99(Fasting)) mg/dl POC Glucose 131 H (70-99) mg/dl Calcium 8.7 (8.5-10.1) mg/dl Total Bilirubin 0.8 D (0.2-1.0) mg/dl AST 71 H (13-39) U/L ALT 99 H (7-52) U/L Alkaline Phosphatase 153 H (34-104) U/L Total Protein 5.6 L D (6.0-8.3) gm/dl Albumin 3.3 L (3.4-5.0) gm/dl Globulin 2.3 L (2.5-4.0) gm/dl Albumin/Globulin Ratio 1.4 (0.9-2) 10/13/22 10/13/22 Range/Units 16:44 15:28 WBC 11.37 H (4.8-10.8) K/ul RBC 3.97 L (4.20-5.40) M/uL Hgb 11.8 L (12.0-16.0) g/dl Hct 35.9 L (37.0-47.0) % MCV 90.4 (80.0-100.0) fL MCH 29.7 (25.0-34.0) pg MCHC 32.9 (32.0-36.0) g/dL RDW Std Deviation 42.5 (36.4-46.3) fL RDW Coeff of Claudio 12.8 (11.5-14.5) % Plt Count 192 (130-400) K/uL MPV 9.9 (9.4-12.4) fL Immature Gran % (Auto) 1.7 % Neut % (Auto) 84.5 % Lymph % (Auto) 11.9 % [place] % (Auto) 1.3 % Eos % (Auto) 0.2 % Baso % (Auto) 0.4 % Neut # (Auto) 9.62 H (1.40-6.50) K/uL Lymph # (Auto) 1.35 (1.2-3.4) K/uL [place] # (Auto) 0.15 (0.11-0.59) K/uL Eos # (Auto) 0.02 (0-0.50) K/uL Baso # (Auto) 0.04 (0-0.2) K/uL Immature Gran # (Auto) 0.19 (0.01-0.20) K/uL Sodium (136-145) mmol/L Potassium (3.5-5.1) mmol/L Chloride (98-107) mmol/L Carbon Dioxide (21-32) mmol/L Anion Gap (3-11) BUN (6-23) mg/dl Creatinine (0.6-1.2) mg/dl Est Cr Clr Drug Dosing ml/min Est GFR ( Amer) ml/min Est GFR (Non-Af Amer) ml/min BUN/Creatinine Ratio (10-20) Glucose (70-99(Fasting)) mg/dl POC Glucose 145 H (70-99) mg/dl Calcium (8.5-10.1) mg/dl Total Bilirubin (0.2-1.0) mg/dl AST (13-39) U/L ALT (7-52) U/L Alkaline Phosphatase (34-104) U/L Total Protein (6.0-8.3) gm/dl Albumin (3.4-5.0) gm/dl Globulin (2.5-4.0) gm/dl Albumin/Globulin Ratio (0.9-2)
[2022-10-14] MEDS: HYDROmorphone INJ 0.5 MG/0.5 ML SYR IV PRN (10:08)
[2022-10-14] MEDS: LACTATED RINGER'S 1,000 ML IV SCH (10:08)
--- NOTE | 2022-10-14 18:10 | Discharge Summary ---
Date of Service October 14, 2022 Admission HPI Per Admitting Provider Ms Dori Giraldo is a 32 year old female with history of PCOS, biliary colic, who is about 5 weeks post presents today with progressively worsening 3 days of right upper quadrant pain associated with chills, nausea/vomiting. She began experiencing intermittent RUQ pain since last summer but at the time she was in her second trimester of and it was believed to be related. Her pain got more frequent during her third trimester. After she had her baby in late August 2022, she continued to have the pain and she had an outpatient u/s which revealed gall stones. She is scheduled for an elective lap levy with Dr Pantera Kenyon on 11/01/2022. Upon arrival to the ER, vitals are: T 36.9, HR 61, RR 20, BP 101/77, 100% on RA. Labwork significant for WBC 11.9, Hb 12.4, Plt 257, T bili 1.6, AST 173, ALT 112, ALP 196. Urinalysis +LE, -nitrite -bacteria ER course- zosyn, 1L NSS, zofran, morphine Principal Diagnosis Acute cholecystitis Choledocholithiasis Transaminitis Discharge Exam Patient was seen and examined on the day of discharge. Patient feels well. Denies abdominal pain, requires only minimal pain medications. Breathing comfortably on room air. was present at bedside and all questions were answered Discharge Data Allergies Allergy/AdvReac Type Severity Reaction Status Date / Time No Known Allergies Allergy Unverified 10/13/22 15:11 Consultations 10/13/22 07:29 Consult General Surgery Stat 10/13/22 07:32 ED Decision to Admit Stat 10/13/22 07:42 Consult Gastroenterology Routine Procedures Performed Operation Date: 10/13/22 13:20 Actual Procedures p Esophagogastroduodenoscopy - Mita Khan MD s Endoscopic Ultrasonography Upper - Mita Khan MD p Endoscopic Retrograde Cholangiopancreato - Mita Khan MD s Laparoscopic Cholecystectomy(Not Applicable) - Tang Ivy MD Ordered Studies 10/13/22 03:27 US gallbladder Urgent 10/13/22 10:40 US upper EUS PACS images Routine 10/13/22 10:45 FL ERCP biliary ductal Routine Hospital Course (1) Acute cholecystitis: (2) Elevated liver enzymes: (3) state: Plan Ms Dori Giraldo is a 32 year old female with history of PCOS, biliary colic, who is 5 weeks post presented to the ER 10/13 with progressively worsening RUQ pain with nausea/vomiting/chills found to have acute cholecystitis with biliary ductal dilation. She underwent ERCP with biliary stent placement and then a laparoscopic cholecystectomy. Post procedures, her LFTs were improved and her abdominal pain was minimal. She was cleared for discharge by GI and surgery. She has a follow up appointment with surgery in 2 weeks for post op evaluation. She will need to follow up with GI for stent removal in 2 months. She was instructed to follow up with her PCP for repeat CMP in 1 week to ensure transaminitis has resolved. 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 You need a repeat CMP in 1 week to ensure your liver enzymes are back to normal For pain, you will be discharged on tramadol as needed. This is a narcotic and can cause you to feel drowsy and you should not drive or operate machinery while on it. Addtl Pharmacy Operations Coordinator Provider Instructions: Post-Surgical ~Discharge Instructions Activity Recommendations: - lifting limitation: (20 pounds for 4 weeks), - exercise/sex/sports limit: (nonstrenuous for 2 weeks), - driving or machine use limit: (none for 1 week or until pain free and no longer taking narcotic pain medication), - Shower/bathe limit: (january shower beginning Monday) Diet: - Resume previous diet SPECIAL CARE INSTRUCTIONS: - May shower on Monday, sponge bath and wash hair in meantime. On Monday, remove outer dressings and let water run over area and pat dry. - Leave steri strips on for one week and then remove. - Call the surgeon's office with any questions or concerns - - (ex. temperature higher than 101 degrees F, excessive bleeding or pain). MEDICATIONS: - Resume previous medications unless instructed otherwise by your surgeon. - May take extra strength Tylenol as needed for mild to moderate pain. -650 mg every 6 hours as needed (do NOT exceed 2 grams a day) - Avoid NSAIDS (Ibuprofen, Motrin, Aleve, Aspirin) for 7 days FOLLOW UP VISIT: - Follow up scheduled with Dr. Ivy in General Surgery at [facility] on 10/27/22 at 10:00 am. Office number Pending Studies at Discharge: Yes (Gallbladder pathology, will be reviewed at postop visit) Stand-Alone Forms: My [facility] [address], Smoking Cessation Medications and DC Order Prescriptions: New tramadol 50 mg tablet 50 mg PO Q8H PRN (Reason: pain) Qty: 7 0RF Continued bjzovudi-rjw-De-FA 1 mg Tablet 1 tab PO DAILY Vitron-C 65 mg iron- 125 mg Tablet,Delayed Release (Dr/Ec) 1 tab PO DAILY Discontinued ibuprofen 600 mg Tablet 600 mg PO Q6H PRN (Reason: fever or pain) Qty: 30 2RF Discharge Orders: Discharge Order (Routine); Ordered 10/14/22 Ordered By: Sola Rubalcava/Other Patient Handouts: Cholecystectomy Admission Data Admit Date/Time: 10/13/22 08:33 Attending Provider: Sola Taylor Admit Provider: Sola Taylor Primary Care Provider: Mehnaz Capone Other Providers: Tang Ivy ; Sola Taylor ; Mita Khan Other Interventions: Discharge Summary Assessment (RN) Last Done: 10/14/22 14:04
== END 2022-10-14 14:53 | disposition home or self-care (01) ==
LOC: 2S 00:02 → ED 00:02 → 2S 10-16 17:37
DX: K80.10 Calculus of gallbladder with chronic cholecystitis without obstruction

== ENCOUNTER 2024-05-29 21:19 | Inpatient (IN) ==
[2024-05-30] MEDS: OXYTOCIN 30 UNITS/NSS 30 UNITS/500 ML BAG IV PRN (00:51)
[2024-05-30] MEDS ORDERED: CALCIUM CARBONATE 500 MG CHEWABLE TAB PO PRN ×2 (16:16)
[2024-05-30] MEDS ORDERED: ACETAMINOPHEN 325 MG TAB PO PRN (16:16)
[2024-05-30] MEDS ORDERED: LIDOCAINE 1% LOCAL 20 ML VIAL INFIL PRN (16:16)
--- NOTE | 2024-05-30 16:25 | History & Physical Report ---
Date of Service May 30, 2024 Assessment & Plan Admission and Anticipated Discharge Date Admission Date: May 30, 2024 History of Present Illness Chief Complaint: Intrauterine 40 weeks 2 days gestation History of macrosomia. Primary Care Provider: Mehnaz Capone DO Patient is a 33-year-old 2 para 1 has a well dated . Her due date is 05/28/2024. has been complicated by gestational diabetes which has been diet controlled. She had her first child 2021 at 40 weeks and 4 days gestation. She delivered a 9 pound 2 ounce male without any difficulty. She is presently being induced for being postterm with a history of gestational diabetes and macrosomia. Allergies Allergy/AdvReac Type Severity Reaction Status Date / Time No Known Allergies Allergy Unverified 10/13/22 15:11 Home Medications Medication Instructions Recorded Confirmed Type iron,carbonyl 65 mg-vitamin C 125 1 tab PO DAILY 09/05/22 09/05/22 History mg tablet,delayed release (Vitron-C) [id number]-[id number]-[id number]-FA 1 mg 1 tab PO DAILY 09/05/22 09/05/22 History tablet tramadol 50 mg tablet 50 mg PO Q8H PRN pain #7 tabs 10/14/22 Rx Past Med/Surg History Problem List (Updated 05/30/24 @ 16:25 by Emir Parish MD) Macrosomia Elevated liver enzymes (Acute) state Gestational diabetes Post-dates Medical History Gestational diabetes mellitus diet controlled Infertility used clomid to get PCOS (polycystic ovarian syndrome) no meds Surgical History No history of previous surgery Social History Smoking Status: Never smoker Second Hand Exposure: No; Tobacco Cessation Education Requested by Patient: No Hx Alcohol Use: No Hx Substance Use: No Preferred Language: Singaporean Communication Ability: Effective Global Marketing Manager Required: No Beliefs That Will Affect Care: None marital status: marital status details: Mohan Alexander Current Living Situation: Family Current Living Situation Comment: Lives with with , 1 1/2 yo son. 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 Trachea was midline there was no cervical adenopathy. Lungs were clear to auscultation and percussion. Heart had a regular rhythm S1 and S2 were normal. Abdomen revealed a gravid abdomen with an estimated weight of over 8 pounds. There was no CVA tenderness. No calf tenderness. Pelvic exam revealed the cervix to be posterior uneffaced 1-1/2 cm dilated vertex presentation. Results & Data Results & Data Vital Signs (Past 12 Hours) Vital Signs Temp Pulse Resp BP 05/30/24 15:33 36.7 C 83 16 115/75 05/30/24 15:28 83 115/75
[2024-05-30] MEDS: LACTATED RINGER'S 1,000 ML IV PRN (16:30)
[2024-05-30] MEDS: miSOPROStoL 50 MCG TAB PO ONE (16:33)
[2024-05-30] MEDS: PENICILLIN GK 6 MU in DEXTROSE 5% 250 ML IV STA (16:54)
[2024-05-30 16:55] LABS: Hematocrit (blood only) 32.3 % (37.0-47.0); Hemoglobin 11.2 g/dl (12.0-16.0); Mean Corpuscular Hemoglobin 30.8 pg (25.0-34.0); Mean Corpuscular Hgb Conc 34.7 g/dL (32.0-36.0); Mean Corpuscular Volume 88.7 fL (80.0-100.0); Mean Platelet Volume 11.4 fL (9.4-12.4); Platelet Count 151 K/uL (130-400); RDW Coefficient of Variation 14.9 % (11.5-14.5); RDW Standard Deviation 48.8 fL (36.4-46.3); Red Blood Count 3.64 M/uL (4.20-5.40); White Blood Count 8.35 K/ul (4.8-10.8)
[2024-05-30] MEDS: PENICILLIN GK 3 MU in DEXTROSE 5% 100 ML IV PRN (21:04)
[2024-05-30] MEDS ORDERED: ROPIVACAINE 0.5% PF 5 MG/ML 20 ML VIAL EPI PRN (21:12)
[2024-05-30] MEDS ORDERED: NALOXONE HCL 1 MG in SODIUM CHLORIDE 0.9% 1,000 ML IV PRN (21:12)
[2024-05-30] MEDS ORDERED: BUPIVACAINE 0.25% PF 30 ML VIAL EPI PRN (21:12)
[2024-05-30] MEDS ORDERED: fentANYL 2 MCG/ML BUPIVacaine 0.125%-NSS 100ML BAG EPI PRN (21:12)
[2024-05-30] MEDS ORDERED: diphenhydrAMINE 50 MG/ML VIAL IV PRN (21:12)
[2024-05-30] MEDS ORDERED: LIDOCAINE 2% MPF LOCAL 5 ML VIAL EPI PRN (21:12)
[2024-05-30] MEDS ORDERED: NALBUPHINE HCL INJ 10 MG/ML AMP IV PRN (21:12)
[2024-05-30] MEDS ORDERED: NALOXONE HCL 0.4 MG/1 ML VIAL/CARP IV PRN (21:12)
[2024-05-30] MEDS ORDERED: ePHEDrine sulfate 50 MG/ML AMP IV PRN (21:12)
[2024-05-30] MEDS ORDERED: fentaNYL citrate PF 100 MCG/2 ML VIAL EPI PRN (21:12)
[2024-05-30] MEDS ORDERED: SODIUM CHLORIDE 0.9% PF INJ 10 ML VIAL EPI PRN (21:12)
--- NOTE | 2024-05-30 21:12 | Anesthesiology Consultation ---
Date of Service May 30, 2024 Assessment & Plan (1) Encounter for pre-operative examination: Chart Review Chart Review: Patient NOT seen in Pre Admission Testing Consults Requested none History Height/Weight Height: 5 ft 6 in Weight: 93.44 kg Allergies Allergy/AdvReac Type Severity Reaction Status Date / Time No Known Allergies Allergy Unverified 10/13/22 15:11 Medications Home Medications Medication Instructions Recorded Confirmed Last Taken iron,carbonyl 65 mg-vitamin C 125 1 tab PO DAILY 09/05/22 09/05/22 09/04/22 09:00 mg tablet,delayed release (Vitron-C) [id number] 1 mg 1 tab PO DAILY 09/05/22 09/05/22 09/03/22 09:00 tablet tramadol 50 mg tablet 50 mg PO Q8H PRN pain #7 tabs 10/14/22 Unknown Active Medications Generic Name Dose Route Start Last Admin Trade Name Freq PRN Reason Stop Dose Admin Lactated Ringer's 1,000 mls @ 125 mls/hr 05/30/24 16:16 05/30/24 20:59 Lr IV 06/01/24 16:15 999 mls/hr .Q8H PRN Administration L&D Protocol Protocol Penicillin G Potassium 3 mu/ 106 mls @ 100 mls/hr 05/30/24 20:00 05/30/24 21:04 Dextrose IV 06/09/24 19:59 100 mls/hr Q4H PRN Administration GBS(+) Until Delivery Past Medical History Medical History Choledocholithiasis with cholecystitis Dilation of common bile duct Acute cholecystitis Infertility used clomid to get PCOS (polycystic ovarian syndrome) no meds Gestational diabetes mellitus diet controlled Past Surgical History Surgical History No history of previous surgery Social History Smoking Status: Never smoker Hx Alcohol Use: No Hx Substance Use: No substance use type: does not use Physical Exam Vital Signs Last Vital Signs Temp 98.1 F 05/30/24 15:33 Pulse 71 05/30/24 20:52 Resp 16 05/30/24 15:33 BP 127/75 05/30/24 20:52 Testing Laboratory Results 05/30/24 16:26 05/30/24 18:04 POC Glucose 118 H
[2024-05-30] MEDS: fentANYL 2 MCG/ML BUPIVacaine 0.125%-NSS 100ML BAG ONE (21:27)
[2024-05-30] MEDS: BUPIVACAINE 0.25% PF 30 ML VIAL ONE (21:35)
[2024-05-30] MEDS: ePHEDrine sulfate 50 MG/ML AMP ONE (23:15)
[2024-05-30] MEDS: fentaNYL citrate PF 100 MCG/2 ML VIAL ONE (23:15)
[2024-05-30] MEDS: LIDOCAINE 2%/EPINEPHRINE 1:200,000 20 ML PF ONE (23:16)
[2024-05-30] MEDS: SODIUM CHLORIDE 0.9% PF INJ 10 ML VIAL EPI STA (23:16)
[2024-05-30] MEDS: BUPIVACAINE 0.25% PF 30 ML VIAL EPI STA (23:16)
[2024-05-30] MEDS: fentaNYL citrate PF 100 MCG/2 ML VIAL EPI STA (23:16)
[2024-05-30] MEDS: SODIUM CHLORIDE 0.9% PF INJ 10 ML VIAL ONE (23:16)
[2024-05-30] MEDS: LIDOCAINE 2%/EPINEPHRINE 1:200,000 20 ML PF EPI STA (23:16)
[2024-05-31] MEDS: METHYLERGONOVINE MALEATE 0.2 MG/ML AMP IM ONE (00:55)
[2024-05-31] MEDS ORDERED: ACETAMINOPHEN W/CODEINE #3 1 TAB PO PRN (01:18)
[2024-05-31] MEDS ORDERED: HYDROCORTISONE ACETATE 25 MG SUPP PR PRN (01:18)
[2024-05-31] MEDS ORDERED: OXYTOCIN 30 UNITS/NSS 30 UNITS/500 ML BAG IV PRN (01:18)
[2024-05-31] MEDS ORDERED: bisacodyL 10 MG SUPP PR PRN (01:18)
[2024-05-31] MEDS ORDERED: oxyCODONE/ACETAMINOPHEN 5mg/325mg TAB PO PRN (01:18)
--- NOTE | 2024-05-31 01:22 | Delivery Summary ---
Vaginal Delivery Summary Date of Service May 31, 2024 Vaginal Delivery Summary Patient brought in for induction at 40 weeks and 4 days gestation. complicated by history of macrosomia with her first infant. Gestational diabetes which was diet-controlled during this . She was brought in given 1 tablet of p.o. Cytotec. With this 1 dose of medication she went into active labor. She was also started on penicillin as soon as she got to the hospital having screen positive for strep. At about 4 to 5 cm she requested and received epidural for pain control. She then went to full dilatation and then under an hour pushed out a live female via direct occiput anterior position over an intact perineum. Infant was suctioned through the mouth and the nose. Cord was allowed to pulse for 1 full minute. With IV Pitocin running the placenta was removed intact. IM Methergine was given in the upper thigh. She had bilateral superficial sulcus lacerations. These were repaired with a running 2-0 Vicryl. After repair of the sulcus lacerations a second-degree laceration in the midline still remained. A deep suture of Vicryl was used approximate the bulbocavernosus cavernosus muscle. This was performed after the vaginal mucosa was approximated out and to beyond the hymenal ring. A separate sutures used approximate the perineal body. And a running subcuticular sutures used approximate the perineal skin edges. Patient tolerated procedure well. I was called back because the sponge count was not correct. I reexamined the patient under epidural anesthesia could not palpate any sponges. I placed a weighted speculum posterior vagina. Followed the cervix around with ring forceps. And still was not able to locate the sponge. Quantitative blood loss was 418 mL.
[2024-05-31] MEDS: METHYLERGONOVINE MALEATE 0.2 MG/ML AMP ONE (03:00)
[2024-05-31] MEDS: ONDANSETRON 4 MG OD TAB PO PRN (03:19)
--- OUTSIDE RECORDS SUMMARY | 2024-05-31 03:27 | External Medical Summary | Summary of Care ---
Author Name Unknown Organization [facility] Address [address] [facility] [place] [address] Phone [phone] Care Team Providers Care Software Asset Management Analyst Name Role Phone Mehnaz Capone DO Primary Care Provider Encounter Details Date Type Department Care Team (Late st Contact Info) Description 05/20/2024 Telephone Gynecology/Obstetrics [facility] [address] [place] [phone] Adryan Marin MD [address] [place] [address] Allergies No known active allergiesdocumented as of this encounter (statuses as of 05/20/2024) Medications Medication Sig Dispensed Refills Start Date End Date Status 28-0.8 MG Oral Tablet Take by mouth. Active OneTouch Delica Lancets 33GIndications:Diet controlled gestational diabetes mellitus (GDM) in third trimester Use as directed, check blood sugar 4x/day 100 Each 6 03/11/2024 Active OneTouch Verio w/Device KitIndications:Diet controlled gestational diabetes mellitus (GDM) in third trimester Use as directed. For testing blood sugars. 1 Kit 03/18/2024 Active OneTouch Verio In Vitro Strip (Glucose Blood)Indications: t controlled gestational diabetes mellitus (GDM) in third trimester Check blood sugar 4x/day 500 Strip 2 05/06/2024 Active documented as of this encounter (statuses as of 05/20/2024) Active Problems Problem Noted Date Diagnosed Date Carrier of group B Streptococcus 05/10/2024 Class 2 obesity without seri ous comorbidity with body mass index (BMI) of 35.0 to 35.9 in adult 03/21/2024 Last Assessment & Plan: -Growth today WNL -Pt recommended to transfer growths ultrasound surveillance to [facility] in [facility] if able -Otherwise, will ctn Radiology scans and referral back to [facility] if indicated -Will also need surveillance at 37 weeks with 29 completed weeks gestation 11/2023 Diet controlled gestational diabetes mellitus (GDM) in third trimester 03/11/2024 Overview: Diagnosed at 29 weeks Nutrition consult ordered Past history of gestational diabetes in first , diet controlled Lab Results Component Value Date/Time 50-G GESTATIONAL GLUCOSE, 1 HOUR - [facility] 178 (H) 12/08/2023 09:50 AM 100-G GESTATIONAL GLUCOSE, 1 HOUR - [facility] 193 (H) 03/11/2024 10:20 AM 100-G GESTATIONAL GLUCOSE, 2 HOUR - [facility] 155 (H) 03/11/2024 11:25 AM 100-G GESTATIONAL GLUCOSE, 3 HOUR - [facility] 100 03/11/2024 12:22 PM 100-G GESTATIONAL GLUCOSE, FASTING - [facility] 94 03/11/2024 09:17 AM 03/13/24: [facility] ADAPT consult complete. Enrolled in Current Health. Instructions provided to report blood sugars each week for M review. 03/19/20244510-NMC-rszzmkit 4 days. Elevated fasting blood sugars. Advised to watch diet, eat bedtime snack, and avoid fasting longer than 8 to 10 hours. Will review again next week, and if persists, will schedule for follow up ADAPT with maternal medicine nurse practitioner. 03/27/20243644-BMS-cflyecg stable (< 50% elevated) 04/02/20247269-ZRH-mcjrmmu stable (3 of 7 elevated fasting blood sugars). Will review again next week. 04/10/24: RPM reviewed; Stable; diet controlled 04/17/20241092-VJW-jxhnhft stable (rare elevation) 04/24/20240631-UFS-jjygwz 05/01/20245937-JWT-rzwgot. Some missed readings. 05/07/20241414-UEH-wetiwp 05/15/20245966-BNB-jvdj via Current Health message. Stable Last Assessment & Plan: -Ctn to work with ADAPT Antepartum anemia complicating 024 Overview: Hgb 10.8 at 28 wks, blood mgmt referral placed Obesity in , antepartum 02/09/2024 Overview: Pre gravid BMI: 35.2 Class 2 obesity Baseline Preeclampsia Labs Lab Results Component Value Date/Time PLT 187 03/11/2024 09:17 AM CREATININE - [facility] 0.7 03/11/2024 09:17 AM AST - [facility] 15 10/26/2022 09:20 AM ALT - [facility] 17 10/26/2022 09:20 AM Last Assessment & Plan: CONSIDERATIONS: Discussed obstetrical risks associated with class II obesity (pre- BMI of 35 to 39.9) Reviewed that the accuracy of ultrasound at diagnosing anomalies is significantly decreased for women with an increased BMI. RECOMMENDATIONS: Recommend restricting weight gain during to 11-20 pounds. Patient should be referred for a nutrition consult. Recommend evaluation for signs and symptoms (snoring, excessive daytime sleepiness witnessed apnea or unexplained hypoxia) of obstructive sleep apnea. If any of these are present, referral to Sleep Medicine specialist for further evaluation should be considered. Recommend performing gestational diabetes mellitus screen now (if not performed at first visit) and repeat again at 26-28 weeks if early screen is normal. Recommend Maternal- Medicine ultrasound for anatomy at 20 weeks and for growth every 4 weeks thereafter. For patients with Class 2 obesity, we recommend weekly surveillance starting at 37 weeks. , supervision, high-risk, third trimest er 11/09/2023 Iron deficiency anemia 06/15/2022 Overview: Repeat cbc 32-33 weeks Supervision of high risk in third trim [place] 03/07/2022 Overview: GDM diagnosed at 13 weeks by abnormal 3 hour GTT. Hemoglobin A1c WNL. Patient has history of PCOS. Glucometer and testing supplies ordered to patient's preferred pharmacy. Will begin testing fasting and 1 hour postprandial blood sugars and report weekly via [employer]. Nutrition consult is scheduled for 03/18. Hemoglobin AIC Results: Lab Results Component Value Date/Time HEMOGLOBIN A1C - [facility] 5.4 02/28/2022 09:18 AM Results for AVI ARITA ( ) as of 03/07/2022 09:01 Ref. Range 02/24/2022 09:24 02/28/2022 09:18 02/28/2022 10:17 02/28/2022 11:23 02/28/2022 12:19 100-g Gestational Glucose, 1 Hour Latest Ref Range: 70 - 179 mg/dL 179 100-g Gestational Glucose, 2 Hour Latest Ref Range: 70 - 154 mg/dL 195 (H) 100-g Gestational Glucose, 3 Hour Latest Ref Range: 70 - 139 mg/dL 158 (H) 100-g Gestational Glucose, Fasting Latest Ref Range: 70 - 94 mg/dL 79 50-g Gestational Glucose, 1 Hour Latest Ref Range: 70 - 129 mg/dL 180 (H) Last Assessment & Plan: Normal early second trimester ultrasound. Dermatitis due to plant 03/30/2016 Estimated Date of Delivery Comme nts Yes 05/28/2024 Based on Ultraso und documented as of this encounter (statuses as of 05/20/2024) Resolved Problems Problem Noted Date Diagnosed Date Resolved Date History of gestational diabe meir in prior , currently 11/09/2023 03/11/2024 Overview: Early 3 hr glucose test - passed Diet controlled gestational diabetes mellitus (GDM), antepartum 02/28/2022 10/18/2022 Overview: Diagnosed 13 weeks, MFM and DM educator referrals placed 03/17: Multiple elevated fasting values. A few high PP. Has Nutrition appointment scheduled tomorrow. Sent message to discuss possibility of meds if FBS do not improve. 03/24 reviewed sugars, stable. Continue with diabetic diet 03/31/22: Stable 04/10/22: Stable aside from 11/15 fasting elevations. Will continue with diet for now. 04/14/22: Stable 04/22/22 stable, continue with diabetic diet 04/28/22 stable, continue with diabetic diet 05/06/22: Stable 05/13/22: Stable 05/20/22: Stable 05/26/22: Stable 06/03/22: Stable 06/09/22: Stable 06/17/22: Stable 06/23/22: Stable 07/01/22: Stable; few elevated fasting 07/08/22: Stable 07/14/22: Stable; diet controlled 07/22/22: Stable 07/29/22: Stable 08/08/22: Stable 08/15/22: Stable 08/22/22: Stable 08/29/22: Stable Last Assessment & Plan: 3'GTT abnormal early this . Avi is submitting her sugars regularly to ADAPT, reviewed importance of this as sugars will fluctuate and often increase later in the 2nd/3rd trimesters. Reviewed A1c result, making it unlikely that she was a progestational diabetic. Glucose intolerance of 02/24/2022 04/19/2022 Overview: Early 1 hr GTT 180, advised to complete 3 hr GTT Rubella non-immune status, antepartum 02/23/2022 10/18/2022 Supervision of normal first 02/22/2022 04/19/2022 Obesity in , antepartum 02/22/2022 10/18/2022 Overview: Pregravid BMI 36.44 Lab Results Component Value Date/Time 50-G GESTATIONAL GLUCOSE, 1 HOUR - [facility] 180 (H) 02/24/2022 09:24 AM Class 2 Early GTT, MFM anatomy scan, weekly NST 34 weeks, growth q4 weeks Last Assessment & Plan: CONSIDERATIONS: Discussed obstetrical risks associated with class II obesity (pre- BMI of 35 to 39.9) Reviewed that the accuracy of ultrasound at diagnosing anomalies is significantly decreased for women with an increased BMI. RECOMMENDATIONS: Recommend restricting weight gain during to 11-20 pounds. Patient should be referred for a nutrition consult. Recommend evaluation for signs and symptoms (snoring, excessive daytime sleepiness witnessed apnea or unexplained hypoxia) of obstructive sleep apnea. If any of these are present, referral to Sleep Medicine specialist for further evaluation should be considered. Recommend performing 3 hr GTT now and repeat again at 26-28 weeks if early screen is normal. Recommend Maternal- Medicine ultrasound for anatomy at 20 weeks and for growth every 4 weeks thereafter. For patients with Class 2 obesity, we recommend weekly surveillance starting at 37 weeks. Encounter for supervision of resulting from assisted reproductive technology 02/22/2022 10/18/2022 Overview: Otf Castroara Last Assessment & Plan: DISCUSSION: 1. Assisted reproductive technology (ART) includes in vitro fertilization (IVF), intrauterine insemination (IUI), Gamete intrafallopian transfer (GIFT) and Zygote intrafallopian transfer (ZIFT). 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 . ADVANCE DIRECTIVE INFORMATION 03/21/2006 06/15/2022 Overview: Not applicable (under age of 18) ACUTE SINUSITIS NOS 09/12/2001 10/30/19 09 Overview: Resolved per Benign Acute Dxs Protocol #3 ACUTE PHARYNGITIS 03/02/2001 10/30/2008 Overview: Resolved per Benign Acute Dxs Protocol #3 ACUTE URI NOS 03/02/2001 10/30/2008 Overview: Resolved per Benign Acute Dxs Protocol #3 documented as of this encounter (statuses as of 05/20/2024) Immunizations Name Administration Dates Next Due COVID-19 mRNA, LNP-s, No Pre serve, 2-Dose Series (Pfizer) 05/26/2021,05/05/2021 DTaP Dipth/Tet/Acell Pertussis (Infanrix), Peds 05/06/1996,09/21/1992,03/02/1992,12/02,1991 HIB PRP-T, 4 Dose, PF, IM (H iberix, ActHib) 09/21/1992,03/02/1992,1991,10/07 Hepatitis B, 0-19 yrs 07/02/1997,02/06/1997,12/12 MMR - Measles/Mumps/Rubella Vaccine 01/08/1997,0 09/21/1992 Meningococcal Conjugate Vacc ine (Menactra/Menveo) 08/10/2007 OPV - Polio Virus Vaccine (Oral) 996,09/21/1992,1991,10/07 TDAP (age 10 and older)(Boostrix) 06/27/2022 TDAP, Age 7 and older, IM (Adacel) 03/24/2006 documented as of this encounter Social History Tobacco Use Types Packs/Day Years Used Date Smoking Tobacco: Never Passive Smoke Exposure: Past Smokeless Tobacco: Never Comments:dad smokes in house , pt lives w/ mom Alcohol Use Standard Drinks/Week Comments Not Currently 0 (1 standard drink = 0.6 oz pur e alcohol) socially AUDIT-C Answer Date Recorded Frequency of Alcohol Consumption 2-4 times a mon01/29/2019 Average Number of Drinks Not on file 019 Frequency of Binge Drinking Not on file 01/10 Hunger Vital Sign Answer Date Recorded Within the past 12 months, y ou worried that your food would run out before you got the money to buy more. Never true 05/08/20 24 Within the past 12 months, t he food you bought just didn't last and you didn't have money to get more. Never true 05/08/2024 [place] Depression Scale Answer Date Recorded [place] Depression Scale Total 1 04/22/2024 The thought of harming myself has occurred to me . Never 04/22/2024 Childcare Answer Date Recorded Do you feel overwhelmed with taking care of a child, family member or friend? No 05/08/2024 Does your family need help f inding childcare? (Household - for ages 0-17 years) Not on file 05/08/2024 Clothing Answer Date Recorded Have you been unable to get clothing when it was really needed? No 05/08/2024 Is your family able to get c lothes or diapers when needed? (Household - for ages 0-17 years) Not on file 05/08/2024 Personal Safety Answer Date Recorded Do you feel unsafe or have concerns for your saf ety? No 05/08/2024 Do you have concerns for you r family's safety? (Household - for ages 0-17 years) Not on file 05/08/2024 Utilities Answer Date Recorded Do you have trouble paying y our heating, water, or electric bill? No 05/08/2024 Is your family able to pay t he heat, water, or electric bill? (Household - for ages 0-17 years) Not on file 05/08/2024 Does your family have access to good internet? (Household - for ages 0-17 years) Not on file 05/08/2024 Employment Status Answer Date Recorded Are you unemployed or without regular income? No 05/08/2024 Does the household have a re lar source of income? (Household - for ages 0-17 years) Not on file 05/08/2024 Social Connections Answer Date Recorded How often do you feel lonely or isolated from th ose around you? Never 05/08/2024 Financial Resource Strain Answer Date R ecorded Do you have any trouble payi ng for your medications, or do you think you might in the future? No 05/08/2024 Does your family have troubl e paying for medicine? (Household - for ages 0-17 years) Not on file 05/08/2024 Transportation Needs Answer Date Record ed Do you have trouble getting a ride to medical visits or work? (Adult - for ages 18 years and over) Not on file 05/08/2024 Does your family have a hard time getting a ride to doctors visits? (Household - for ages 0-17 years) Not on file 05/08/2024 Has lack of transportation k ept you from medical appointments, meetings, work, or from getting things needed for daily living? Check all that apply. No 05/08/2024 Do you (or your family) have trouble finding or paying for a ride (transportation)? (Household - for ages 0-17 years) Not on file 05/08/2024 Housing Stability Answer Date Recorded Do you currently live in a s helter or have no steady place to sleep at night? No 05/08/2024 Do you think you are at risk of becoming homeless? (Adult - for ages 18 years and over) Not on file 05/08/2024 Does your family worry about paying for your home or becoming homeless? (Household - for ages 0-17 years) Not on file 0 05/08/2024 Are you homeless or worried that you might be in the future? No 05/08/2024 Are you (or your family) francoise eless or worried that you might be in the future? (Household - for ages 0-17 years) Not on file Food Insecurity Answer Date Recorded Do you need food for this week? No 05/08/2024 Are you able to get enough f ood for your family? (Household - for ages 0-17 years) Not on file 05/08/2024 Does your family need food t his week? (Household - for ages 0-17 years) Not on file 05/08/2024 Do you always have enough fo od for your family? (Household - for ages 0-17 years) Not on file 05/08/2024 Estimated Date of Delivery Comme nts Yes 05/28/2024 Based on Ultraso und Sex and Gender Information Value Date Recorded Sex Assigned at Female 02/22/2022 9:42 AM EDT Gender Identity Female 02/22/2022 9:42 AM EDT Sexual Orientation Straight 02/22/2022 9: 42 AM EDT Job Start Date Occupation Industry Not on file Not on file Not on file documented as of this encounter Miscellaneous Notes * Telephone Encounter - Elin Guzman LPN - 05/20/2024 10:46 AM EDT Patient returned call and will take 05/29. Sravani notified. * Telephone Encounter - Landy Medina LPN - 05/20/2024 10:43 AM EDT Consuelo Augustin+D called to offer patient sooner IOL spot on 05/29. TC to patient, she is going to call her quick and get back to us. Let l+d know shahana. documented in this encounter Plan of Treatment Upcoming Encounters Date Type Department Care Team (Late st Contact Info) Description 05/22/2024 1:45 PM EDT Office Visit Gynecology/Obstetrics [facility] [address] [place] [phone] Meenakshi Perry CRNP [address] [place] [phone] [place], Non Stress Tests [place] [address] [place] [phone] Health Maintenance Due Date Last Done Comments Depression Screening 11/14/2017 11/14/2016 HPV/Co-Test 2021 COVID-19 Vaccine ( season) 2024 05/26/2021, 05/05/2021 Influenza Vaccine (FLU shot) (#1) 2024 Cervical Cancer Screening 02/22/2025 Pap Smear 02/22/2025 02/22/2022, 01/10, 11/11/2015, Additional history exists DTap/Tdap Vaccines (8 - Td or Tdap) 06/27/2032 06/27/2022, 03/24/2006, 05/06/1996, Additional history exists Hepatitis B Vaccine Completed 07/02/1997, 02/06/1997, 01/08/1997 MENINGOCOCCAL (MENACTRA/MENVEO) Completed 08/10/2007 HPV (Gardasil) Vaccine Aged Out No lo nger eligible based on patient's age to complete this topic Pneumococcal Vaccine: Pediatrics (0 to 5 Years) and At-Risk Patients (6 to 64 Years) Aged Out No longer eligible based on patient's age to complete this topic documented as of this encounter Medical Devices Not on filedocumented as of this encounter Care Teams Software Asset Management Analyst Relationship Specialty Start Date End Date Mehnaz Capone [facility] [address] [facility] [address] PCP - General Family Medicine 03/02/16 documented as of this encounter
--- OUTSIDE RECORDS SUMMARY | 2024-05-31 03:27 | External Medical Summary | Summary of Care ---
Author Name Unknown Organization [facility] Address [address] [place] [address] Phone [phone] Care Team Providers Care Lens Edger Name Role Phone Mehnaz Capone DO Primary Care Provider Reason for Visit * Reason Onset Date Comments Home Monitoring Orders Only 05/29/2024 Encounter Details Date Type Department Care Team (Late st Contact Info) Description 05/29/2024 Home Monitoring Bike Shop Manager Obstetrics Maternal Medicine, [place] [address], [place] [phone] Vesta Hurst CRNP [address], [place] [phone] Diet controlled gestational diabetes mellitus (GDM) in third trimester* Allergies No known active allergiesdocumented as of this encounter (statuses as of 05/29/2024) Medications Medication Sig Dispensed Refills Start Date [...] as of this encounter (statuses as of 05/29/2024) Active Problems Problem Noted Date Diagnosed Date Carrier of group B Streptococcus 05/10/2024 Class 2 obesity without seri ous comorbidity with body mass index (BMI) of 35.0 to 35.9 in adult 03/21/2024 Last Assessment & Plan: -Growth today WNL -Pt recommended to transfer growths ultrasound surveillance to [facility] in [facility] if able -Otherwise, will ctn Radiology scans and referral back to [facility] if indicated -Will also need surveillance [...] - [facility] 94 03/11/2024 09:17 AM 03/13/24: M ADAPT consult complete. Enrolled in Current Health. Instructions provided to report blood sugars each week for [facility] review. 03/19/20241783-PWW-frzivagw 4 days. Elevated fasting blood sugars. Advised to watch diet, eat bedtime snack, and avoid fasting longer than 8 to 10 hours. Will review again next week, and if persists, will schedule for follow up ADAPT with maternal medicine nurse practitioner. 03/27/20245774-SAA-ukwhwyh stable (< 50% elevated) 04/02/20249685-LIG-jfrnlph stable (3 of 7 elevated fasting blood sugars). Will review again next week. 04/10/24: RPM reviewed; Stable; diet controlled 04/17/20244357-FXL-ypbhugv stable (rare elevation) 04/24/20249865-FKL-adevsx 05/01/20246976-ABP-nkckgp. Some missed readings. 05/07/20242065-RGJ-eeurtx 05/15/20246529-UAG-oqba via Current Health message. Stable 05/21/20241488-GAI-ypbsapob 3 days in the past 6 days; stable. Message to be consistent with testing four times daily and reporting. 05/28/20245838-NJS-tlenuu Last Assessment & Plan: -Ctn to work [...] weeks Supervision of high risk in third [facility] [place] 03/07/2022 Overview: GDM diagnosed at 13 weeks by abnormal 3 hour GTT. Hemoglobin A1c WNL. Patient has history of PCOS. Glucometer and testing supplies ordered to patient's preferred pharmacy. Will begin testing fasting and 1 hour postprandial blood sugars and report weekly via [employer]. Nutrition consult is scheduled for 03/18. Hemoglobin AIC Results: Lab Results Component Value Date/Time HEMOGLOBIN A1C - [facility] 5.4 02/28/2022 09:18 AM Results for AVI [...] as of this encounter (statuses as of 05/29/2024) Resolved Problems Problem Noted Date Diagnosed Date [...] diet 03/31/22: Stable 04/10/22: Stable aside from 3 fasting elevations. Will continue with diet for [...] from assisted reproductive technology 02/22/2022 10/18/2022 Overview: Nehal Castro Last Assessment & Plan: DISCUSSION: 1. Assisted [...] as of this encounter (statuses as of 05/29/2024) Immunizations Name Administration Dates Next Due COVID-19 mRNA, LNP-s, No Pre serve, 2-Dose Series (i2O Water) 05/26/2021,05/05/2021 Meningococcal Conjugate Vaccine (Menactra/Menveo ) 08/10/2007 TDAP (age 10 and older)(Boostrix) 06/27/2022 TDAP, [...] money to get more. Never true 05/08/2024 [place] Depression Scale Answer Date Recorded [place] Depression Scale Total 1 04/22/2024 The thought [...] 05/08/2024 Does the household have a re gular source of income? (Household - for ages [...] on file documented as of this encounter Progress Notes * Kia Bill LPN - 05/29/2024 8:57 AM EDT Patient has been discharged from [facility] Diabetes in Home Monitoring Program - Delivery Date 05/29/2024. Kia Bill LPN Nurse Navigator [address] documented in this encounter Plan of Treatment Health Maintenance Due Date Last Done Comments [...] Not on filedocumented as of this encounter Visit Diagnoses Diagnosis Diet controlled gestational diabetes mellitus (GDM) in third trimester- Primary documented in this encounter Care Teams Lens Edger Relationship Specialty Start Date End Date Mehnaz Capone DO [address] [place] [address] PCP - General Family Medicine 03/02/16 documented as of this encounter
--- OUTSIDE RECORDS SUMMARY | 2024-05-31 03:27 | External Medical Summary | Summary of Care ---
Author Name Unknown Organization [facility] Address [address] [place] [address] Phone [phone] Care Team Providers Care Shotweld Operator Name Role Phone Mehnaz Capone DO Primary Care Provider Reason for Visit * Reason Onset Date Comments Anemia Follow-Up 05/27/2024 Encounter Details Date Type Department Care Team (Late st Contact Info) Description 04/26/2024 9:30 AM EDT Pharmacy Pharmacy, [place] [address] [place] [address] Clinic, Anemia [address] [place] [address] Iron deficiency anemia, unspecified iron deficiency anemia type* Allergies No known active allergiesdocumented as of this encounter (statuses as of 05/27/2024) Medications Medication Sig Dispensed Refills Start Date [...] testing blood sugars. 1 Kit 03/18/2024 Active documented as of this encounter (statuses as of 05/27/2024) Active Problems Problem Noted Date Diagnosed Date Carrier of group B Streptococcus 05/10/2024 Class 2 obesity without seri ous comorbidity with body mass index (BMI) of 35.0 to 35.9 in adult 03/21/2024 Last Assessment & Plan: -Growth today WNL -Pt recommended to transfer growths ultrasound surveillance to [facility] in [facility] if able -Otherwise, will ctn Radiology scans and referral back to [facility] if indicated -Will also need surveillance [...] - [facility] 94 03/11/2024 09:17 AM 03/13/24: [facility] ADAPT consult complete. Enrolled in [employer]. Instructions provided to report blood sugars each week for MFM review. 03/19/20243437-WEL-xxyaacus 4 days. Elevated fasting blood sugars. Advised to watch diet, eat bedtime snack, and avoid fasting longer than 8 to 10 hours. Will review again next week, and if persists, will schedule for follow up ADAPT with maternal medicine nurse practitioner. 03/27/20247660-JUS-ebsvqxr stable (< 50% elevated) 04/02/20242046-EEI-ublzlwk stable (3 of 7 elevated fasting blood sugars). Will review again next week. 04/10/24: RPM reviewed; Stable; diet controlled 04/17/20249607-MMJ-jipondv stable (rare elevation) 04/24/20245613-FMA-dciuxw 05/01/20246619-ISS-nrvqmv. Some missed readings. 05/07/20245925-LNJ-otfqfm 05/15/20240140-MLH-brtz via [employer] message. Stable 05/21/20246707-XJW-egjnzuba 3 days in the past 6 days; stable. Message to be consistent with testing four times daily and reporting. Last Assessment & Plan: -Ctn to work [...] postprandial blood sugars and report weekly via CR[employer]. Nutrition consult is scheduled for 03/18. Hemoglobin AIC Results: Lab Results Component Value Date/Time HEMOGLOBIN A1C - [facility] 5.4 02/28/2022 09:18 AM Results for AVI [...] as of this encounter (statuses as of 05/27/2024) Resolved Problems Problem Noted Date Diagnosed Date [...] as of this encounter (statuses as of 05/27/2024) Immunizations Name Administration Dates Next Due COVID-19 mRNA, LNP-s, No Pre serve, 2-Dose Series (3dplusme) 05/26/2021,05/05/2021 Meningococcal Conjugate Vaccine (Menactra/Menveo ) 08/10/2007 [...] money to get more. Never true 05/08/2024 [place] Depression Scale Answer Date Recorded [place] Depression Scale Total 1 04/22/2024 The thought [...] as of this encounter Progress Notes * Adilene Joya RPh - 05/27/2024 11:12 AM EDT Patient Phone Numbers Reviewed labs from 04/29/24. Hgb: 11.3 g/dL TSAT: 12 % Ferritin: 172 ng/mL FA >20 B12 186 GA: 39w6d DARIO: IOL scheduled for 05/29 Hgb and Iron studies adequate. B12 could be maximized however given IOL scheduled for 05/29 no additional intervention at this time. Plan: Anemia clinic will sign off at this time. Thank you for allowing us to participate in the care of this patient. Adilene Joya, PharmD [facility] Clinical Pharmacist 05/27/2024 11:15 AM Lab Results Component Value Date/Time HGB 11.3 (L) 04/29/2024 01:36 PM HGB 10.8 (L) 03/11/2024 09:17 AM HGB 13.4 11/09/2023 09:29 AM HGB 12.9 05/24/2000 02:35 PM No results found for: "HEMOGLOBIN-OUTSIDE LAB" Results for orders placed or performed in visit on 04/29/24 IRON SCREEN, INCLUDING TIBC Result Value Ref Range Iron 49 33 - 151 ug/dL Iron Binding Capacity 399 250 - 425 ug/dL Transferrin Saturation Percent 12 (L) 15 - 55 % Results for orders placed or performed in visit on 03/11/24 IRON SCREEN, INCLUDING TIBC Result Value Ref Range Iron 55 33 - 151 ug/dL Iron Binding Capacity 455 (H) 250 - 425 ug/dL Transferrin Saturation Percent 12 (L) 15 - 55 % Results for orders placed or performed in visit on 06/13/22 IRON SCREEN, INCLUDING TIBC Result Value Ref Range Iron 43 33 - 151 ug/dL Iron Binding Capacity 445 (H) 250 - 425 ug/dL Transferrin Saturation Percent 10 (L) 15 - 55 % No results found for: "TRANSFERRIN SAT %-OUTSIDE LAB" Lab Results Component Value Date/Time FERRITIN - [facility] 172 (H) 04/29/2024 01:36 PM FERRITIN - [facility] 12 (L) 03/11/2024 09:17 AM FERRITIN - [facility] 14 06/13/2022 09:04 AM No results found for: "FERRITIN-OUTSIDE LAB" documented in this encounter Plan of Treatment [...] as of this encounter Visit Diagnoses Diagnosis Iron deficiency anemia, unspecified iron deficiency anemia type- Primary documented in this encounter Care Teams Shotweld Operator Relationship Specialty Start Date End Date Mehnaz Capone DO [address] [place] [address] PCP - General Family Medicine 03/02/16 documented as of this encounter
--- OUTSIDE RECORDS SUMMARY | 2024-05-31 03:27 | External Medical Summary | Summary of Care ---
Author Name Unknown Organization [facility] Address [address] [facility] [place] [address] Phone [phone] Care Team Providers Care Textile Conservator Name Role Phone Mehnaz Capone DO Primary Care Provider [phone] Reason for Visit * Reason Comments Return Visit Non Stress Test Encounter Details Date Type Department Care Team (Latest Contact Info) Description 05/22/2024 1:45 PM EDT Office Visit Gynecology/Obstetric s [facility] [address] [facility] [place] [address] Meenakshi Perry CRNP [address] [place] [address] [facility], Non Stress Tests [facility] [address] [place] [address] , supervision, high-risk, third trimester*; Obesity in , antepartum; Diet controlled gestational diabetes mellitus (GDM) in third trimester; Antepartum anemia complicating ; Class 2 obesity without serious comorbidity with body mass index (BMI) of 35.0 to 35.9 in adult, unspecified obesity type; Carrier of group B Streptococcus Allergies No known active allergiesdocumented as of this encounter (statuses as of 05/22/2024) Medications Medication Sig Dispensed Refills Start Date [...] as of this encounter (statuses as of 05/22/2024) Active Problems Problem Noted Date Diagnosed Date Carrier of group B Streptococcus 05/10/2024 Class 2 obesity without seri ous comorbidity with body mass index (BMI) of 35.0 to 35.9 in adult 03/21/2024 Last Assessment & Plan: -Growth today WNL -Pt recommended to transfer growths ultrasound surveillance to [facility] in [facility] if able -Otherwise, will ctn Radiology scans and referral back to [facility] if indicated -Will also need surveillance [...] - [facility] 94 03/11/2024 09:17 AM 03/13/24: [facility] ADAPT consult complete. Enrolled in [employer]. Instructions provided to report blood sugars each week for [facility] review. 03/19/20244017-HME-nlompyvs 4 days. Elevated fasting blood sugars. Advised to watch diet, eat bedtime snack, and avoid fasting longer than 8 to 10 hours. Will review again next week, and if persists, will schedule for follow up ADAPT with maternal medicine nurse practitioner. 03/27/20249872-AFT-usnatxr stable (< 50% elevated) 04/02/20246998-DVB-fngycpp stable (3 of 7 elevated fasting blood sugars). Will review again next week. 04/10/24: RPM reviewed; Stable; diet controlled 04/17/20249236-FHQ-pfcxfag stable (rare elevation) 04/24/20245956-VHD-zvwkjr 05/01/20241864-SKS-hlulam. Some missed readings. 05/07/20242750-NMI-dujtte 05/15/20243822-XEX-gbgq via [employer] message. Stable 05/21/20245392-OCU-vyvczpoq 3 days in the past 6 days; [...] postprandial blood sugars and report weekly via [employer]. Nutrition consult is scheduled for 03/18. Hemoglobin AIC Results: Lab Results Component Value Date/Time HEMOGLOBIN A1C - [facility] 5.4 02/28/2022 09:18 AM Results for AVI [...] as of this encounter (statuses as of 05/22/2024) Resolved Problems Problem Noted Date Diagnosed Date [...] as of this encounter (statuses as of 05/22/2024) Immunizations Name Administration Dates Next Due COVID-19 mRNA, LNP-s, No Pre serve, 2-Dose Series (Pfizer) 05/26/2021,05/05/2021 Meningococcal Conjugate Vaccine (Menactra/Menveo ) 08/10/2007 [...] money to get more. Never true 05/08/2024 [place] Depression Scale Answer Date Recorded [place] Depression Scale Total 1 04/22/2024 The thought [...] on file documented as of this encounter Last Filed Vital Signs Vital Sign Reading Time Taken Comments Blood Pressure 110/66 05/22/2024 2:11 PM EDT Pulse - - Temperature - - Respiratory Rate - - Oxygen Saturation - - Inhaled Oxygen Concentration - - Weight 95.9 kg (211 lb 6.4 oz) 05/22/2024 2:11 P M EDT Height - - Body Mass Index 34.38 05/08/2024 2:33 PM EDT documented in this encounter Progress Notes * Meenakshi Perry CRNP - 05/22/2024 2:22 PM EDT 39w1d No concerns. Has IOL 05/29. Would like cervical check. [employer] Business Representative Documentation Provider requested sales representative gas service. Name of sales representative gas service: Angi ASSESSMENT assessment with Non-stress Test completed on 05/22/2024 at 39.1weeks gestation for indication of obesity heart baseline: 130 bpm Variability: Moderate Decelerations: absent Accelerations: present Contractions: None NST start time: 1357 NST stop time: 1422 NST strip reviewed, interpreted, and approved by OB provider, ZAINAB Cool . NST strip stored in clinic storage file * Angi Cortez CMA - 05/22/2024 2:11 PM EDT 39w1d NST/TIMOTHY Requesting cervical check documented in this encounter Plan of Treatment [...] as of this encounter Visit Diagnoses Diagnosis , supervision, high-risk, third trimester- Primary Class 2 obesity without serious comorbidity with body mass index (BMI) of 35.0 to 35.9 in adult, unspecified obesity type Diet controlled gestational diabetes mellitus (GDM) in third trimester Antepartum anemia complicating Anemia, antepartum Carrier of group B Streptococcus Carrier or suspected carrier of Group B streptococcus documented in this encounter Care Teams Textile Conservator Relationship Specialty Start Date End Date Mehnaz Capone DO [address] [place] [address] PCP - General Family Medicine 03/02/16 documented as of this encounter
--- OUTSIDE RECORDS SUMMARY | 2024-05-31 03:27 | External Medical Summary | Summary of Care ---
Author Name Unknown Organization [facility] Address [address] [facility] [place] [address] Phone [phone] Care Team Providers Care Medical Technologist Clinical Name Role Phone Mehnaz Capone DO Primary Care Provider [phone] Encounter Details Date Type Department Care Team (Late st Contact Info) Description 05/29/2024 Telephone Gynecology/Obstetrics [facility] [address] [place] [address] Marty Escalera MD [address] [place] [address] Allergies No known active allergiesdocumented as of [...] recommended to transfer growths ultrasound surveillance to [facility] in [facility] if able -Otherwise, will ctn Radiology scans and referral back to [facility] if indicated -Will also need surveillance [...] - [facility] 94 03/11/2024 09:17 AM 03/13/24: [facility] ADAPT consult complete. Enrolled in [employer]. Instructions provided to report blood sugars each week for M review. 03/19/20245674-SAA-cwvytbxi 4 days. Elevated fasting blood sugars. Advised to watch diet, eat bedtime snack, and avoid fasting longer than 8 to 10 hours. Will review again next week, and if persists, will schedule for follow up ADAPT with maternal medicine nurse practitioner. 03/27/20247500-LWH-zrtaldw stable (< 50% elevated) 04/02/20244306-HWA-xvixutw stable (3 of 7 elevated fasting blood sugars). Will review again next week. 04/10/24: RPM reviewed; Stable; diet controlled 04/17/20240529-AXK-ciqptnt stable (rare elevation) 04/24/20241124-OWI-peoazr 05/01/20247168-LXC-dfywwo. Some missed readings. 05/07/20245263-RQK-iyyjgf 05/15/20244050-FSM-tfdp via [employer] message. Stable 05/21/20241045-SCR-ngfeffra 3 days in the past 6 days; stable. Message to be consistent with testing four times daily and reporting. 05/28/20244987-OSY-novfcn Last Assessment & Plan: -Ctn to work [...] postprandial blood sugars and report weekly via [employer]. Nutrition consult is scheduled for 03/18. Hemoglobin AIC Results: Lab Results Component Value Date/Time HEMOGLOBIN A1C - [facility] 5.4 02/28/2022 09:18 AM Results for AVI [...] of meds if FBS do not improve. 7/14 reviewed sugars, stable. Continue with diabetic diet 03/31/22: Stable 04/10/22: Stable aside from 3/7 fasting elevations. Will continue with diet for [...] money to get more. Never true 05/08/2024 [place] Depression Scale Answer Date Recorded [place] Depression Scale Total 1 04/22/2024 The thought [...] encounter Miscellaneous Notes * Telephone Encounter - Landy Medina LPN - 05/29/2024 3:26 PM EDT Marialuisa marsh L+D called, patients induction needs moved to tomorrow. Patient aware. documented in this encounter Plan of Treatment Health Maintenance Due Date Last Done Comments Depression Screening 11/14/2017 11/14/2016 HPV/Co-Test 2021 COVID-19 Vaccine ( season) 2024 05/26/2021, 05/05/2021 Influenza Vaccine (FLU shot) (#1) 2024 Cervical Cancer Screening 02/22/2025 Pap Smear 02/22/2025 02/22/2022, 0509/2018, 11/11/2015, Additional history exists DTap/Tdap Vaccines (8 [...] filedocumented as of this encounter Care Teams Medical Technologist Clinical Relationship Specialty Start Date End Date Mehnaz Capone DO [address] [place] [address] PCP - General Family Medicine 03/02/16 documented as of this encounter
--- OUTSIDE RECORDS SUMMARY | 2024-05-31 03:27 | External Medical Summary | Summary of Care ---
Author Name Unknown Organization [facility] Address [address] [facility] [place] [address] Phone [phone] Care Team Providers Care Cylinder Worker Name Role Phone Mehnaz Capone DO Primary Care Provider [phone] Encounter Details Date Type Department Care Team (Late st Contact Info) Description 05/20/2024 Telephone Gynecology/Obstetrics [facility] [address] [place] [address] Adryan Marin MD [address] [place] [address] Allergies No known active allergiesdocumented as of [...] recommended to transfer growths ultrasound surveillance to [facility] in [facility] if able -Otherwise, will ctn Radiology scans and referral back to [facility] if indicated -Will also need surveillance at [...] - [facility] 94 03/11/2024 09:17 AM 03/13/24: [facility] ADAPT consult complete. Enrolled in [employer]. Instructions provided to report blood sugars each week for M review. 03/19/20243633-WXD-myfkhkzi 4 days. Elevated fasting blood sugars. Advised to watch diet, eat bedtime snack, and avoid fasting longer than 8 to 10 hours. Will review again next week, and if persists, will schedule for follow up ADAPT with maternal medicine nurse practitioner. 03/27/20249541-JYQ-rpjbjad stable (< 50% elevated) 04/02/20249723-YEZ-fyhvxij stable (3 of 7 elevated fasting blood sugars). Will review again next week. 04/10/24: RPM reviewed; Stable; diet controlled 04/17/20243079-CTV-kztgtny stable (rare elevation) 04/24/20243636-OFP-mipxth 05/01/20248728-DNZ-xgxrxw. Some missed readings. 05/07/20242311-KVH-zbktmb 05/15/20243610-UVH-lnic via [employer] message. Stable Last Assessment [...] postprandial blood sugars and report weekly via [employer] Nutrition consult is scheduled for 03/18. Hemoglobin AIC Results: Lab Results Component Value Date/Time HEMOGLOBIN A1C - [facility] 5.4 02/28/2022 09:18 AM Results for AVI [...] money to get more. Never true 05/08/2024 [place] Depression Scale Answer Date Recorded [place] Depression Scale Total 1 04/22/2024 The thought [...] [facility] [address] [place] [address] Meenakshi Perry CRNP [address] [place] [address] [facility], Non Stress Tests [facility] [address] [place] [address] Health Maintenance Due Date Last Done Comments [...] filedocumented as of this encounter Care Teams Cylinder Worker Relationship Specialty Start Date End Date Mehnaz Capone DO [address] [facility] [address] PCP - General Family Medicine 03/02/16 documented as of this encounter
--- OUTSIDE RECORDS SUMMARY | 2024-05-31 03:27 | External Medical Summary | Summary of Care ---
Author Name Unknown Organization [facility] Address [address] [facility] [place] [address] Phone [phone] Care Team Providers Care Gristmiller Name Role Phone Mehnaz Capone DO Primary Care Provider [phone] Reason for Visit * Reason Comments Return Visit Non Stress Test Encounter Details Date Type Department Care Team (Latest Contact Info) Description 05/15/2024 1:45 PM EDT Office Visit Gynecology/Obstetric s [facility] [address] [facility] [place] [address] Meenakshi Perry CRNP [address] [place] [address] [facility], Non Stress Tests [facility] [address] [place] [address] , supervision, high-risk, third trimester*; Obesity in , antepartum; Diet controlled gestational diabetes mellitus (GDM) in third trimester; Antepartum anemia complicating ; Class 2 obesity without serious comorbidity with body mass index (BMI) of 35.0 to 35.9 in adult, unspecified obesity type; Carrier of group B Streptococcus Allergies No known active allergiesdocumented as of this encounter (statuses as of 05/15/2024) Medications Medication Sig Dispensed Refills Start Date [...] as of this encounter (statuses as of 05/15/2024) Active Problems Problem Noted Date Diagnosed Date Carrier of group B Streptococcus 05/10/2024 Class 2 obesity without seri ous comorbidity with body mass index (BMI) of 35.0 to 35.9 in adult 03/21/2024 Last Assessment & Plan: -Growth today WNL -Pt recommended to transfer growths ultrasound surveillance to [facility] in [facility] if able -Otherwise, will ctn Radiology scans and referral back to [facility] if indicated -Will also need surveillance [...] - [facility] 03/11/2024 09:17 AM 03/13/24: [facility] ADAPT consult complete. Enrolled in [employer]. Instructions provided to report blood sugars each week for [facility] review. 03/19/20244696-XDD-lquylsqj 4 days. Elevated fasting blood sugars. Advised to watch diet, eat bedtime snack, and avoid fasting longer than 8 to 10 hours. Will review again next week, and if persists, will schedule for follow up ADAPT with maternal medicine nurse practitioner. 03/27/20248023-FAH-gwqfxkv stable (< 50% elevated) 04/02/20240937-FZG-fqdbice stable (3 of 7 elevated fasting blood sugars). Will review again next week. 04/10/24: RPM reviewed; Stable; diet controlled 04/17/20247174-YXJ-vortqze stable (rare elevation) 04/24/20242284-GCM-ieoinv 05/01/20244298-QNB-qucqbn. Some missed readings. 05/07/20243517-HHO-ejqpud 05/15/20240881-GIV-vqwb via [employer]. Stable Last Assessment & Plan: -Ctn to [...] postprandial blood sugars and report weekly via [employer]. Nutrition consult is scheduled for 03/18. Hemoglobin AIC Results: Lab Results Component Value Date/Time HEMOGLOBIN A1C - [facility] 5.4 02/28/2022 09:18 AM Results for AVI [...] as of this encounter (statuses as of 05/15/2024) Resolved Problems Problem Noted Date Diagnosed Date [...] & Plan: 3'GTT abnormal early this . vAi is submitting her sugars regularly to ADAPT, [...] from assisted reproductive technology 02/22/2022 10/18/2022 Overview: Clomid, Femara Last Assessment & Plan: DISCUSSION: 1. Assisted [...] as of this encounter (statuses as of 05/15/2024) Immunizations Name Administration Dates Next Due COVID-19 [...] money to get more. Never true 05/08/2024 [place] Depression Scale Answer Date Recorded [place] Depression Scale Total 1 04/22/2024 The thought [...] Sign Reading Time Taken Comments Blood Pressure 112/68 05/15/2024 1:57 PM EDT Pulse - - Temperature - - Respiratory Rate - - Oxygen Saturation - - Inhaled Oxygen Concentration - - Weight 96.9 kg (213 lb 9.6 oz) 05/15/2024 1:57 P M EDT Height - - Body Mass Index 34.74 05/08/2024 2:33 PM EDT documented in this encounter Progress Notes * Angi Cortez CMA - 05/15/2024 1:57 PM EDT 38w1d NST/TIMOTHY Denies any concerns * Meenakshi Perry CRNP - 05/15/2024 1:56 PM EDT 38w4d Feeling well. Baby is active. No contractions, bleeding, LOF. Growth u/s yesterday, EFW about 8lbs. Last baby was over 9lbs. Has IOL scheduled for 05/31, no sooner availability. Pt fine with date. ASSESSMENT assessment with Non-stress Test completed on 05/15/2024 at 38.1weeks gestation for indication of obesity heart baseline: 130 bpm Variability: Moderate Decelerations: absent Accelerations: present Contractions: Present, irregular and mild NST start time: 1350 NST stop time: 1412 NST strip reviewed, interpreted, and approved by OB providerMeenakshi CRNP . NST strip stored in clinic storage file documented in this encounter Plan of Treatment Upcoming Encounters Date Type Department Care Team (Late st Contact Info) Description 05/22/2024 1:45 PM EDT Office Visit Gynecology/Obstetrics [facility] [address] [place] [address] Meenakshi Perry CRNP [address] [place] [address] [facility] Non Stress Tests [facility] [address] [place] [address] Health Maintenance Due Date Last Done Comments [...] streptococcus documented in this encounter Care Teams Gristmiller Relationship Specialty Start Date End Date Mehnaz Capone DO [address] [place] [address] PCP - General Family Medicine 03/02/16 documented as of this encounter
--- OUTSIDE RECORDS SUMMARY | 2024-05-31 03:28 | External Medical Summary ---
Author Name Unknown Address Unknown Organization K01:[facility] [place] [address] [place] [address] Laboratory Report Ordering Provider Test Date Status DARIUS GUZMÁN 04/29/2024 13:36:37 Final Observation Date Value Abnormality Reference (Units ) Status Vitamin B12 04/29/2024 13:36:37 186 Below low normal 2 32-1245 (pg/mL) Final Performing Location [facility] - [address] [place] [address]
--- OUTSIDE RECORDS SUMMARY | 2024-05-31 03:28 | External Medical Summary | Summary of Care ---
Author Name Unknown Organization [facility] Address [address] [facility] [place] [address] Phone [phone] Care Team Providers Care Assembler Metal Building Name Role Phone Mehnaz Capone DO Primary Care Provider Reason for Visit * Reason Onset Date Comments Medication Refill 04/04/2024 Encounter Details Date Type Department Care Team (Late st Contact Info) Description 04/04/2024 Refill Gynecology/Obstetrics [facility] [address] [place] [address] Maggi Anderson CRNP [address] [facility] [place] [address] Diet controlled gestational diabetes mellitus (GDM) in third trimester Allergies No known active allergiesdocumented as of this encounter (statuses as of 04/04/2024) Medications Medication Sig Dispensed Refills Start Date End Date Status 28-0.8 MG Oral Tablet Take by mouth. Active OneTouch Delica Lancets 33GIndications: t controlled gestational diabetes mellitus (GDM) in third trimester Use as directed, check blood sugar 4x/day 100 Each 6 03/11/2024 Active OneTouch Verio w/Device KitIndications: t controlled gestational diabetes mellitus (GDM) in third trimester Use as directed. For testing blood sugars. 1 Kit 03/18/2024 Active OneTouch Verio In Vitro Strip (Glucose Blood)Indications: Diet controlled gestational diabetes mellitus (GDM) in third trimester Check blood sugar 4x/day 500 Strip 2 04/04/2024 Active Heat Biologicsuch Augmentix In Vitro Strip (Glucose Blood)Indications: Diet controlled gestational diabetes mellitus (GDM) in third trimester Check blood sugar 4x/day 500 Strip 2 03/11/2024 04/04/2024 Discontinued (Refill) documented as of this encounter (statuses as of 04/04/2024) Active Problems Problem Noted Date Diagnosed Date Class 2 obesity without seri ous comorbidity with body mass index (BMI) of 35.0 to 35.9 in adult 03/21/2024 Last Assessment & Plan: -Growth today WNL -Pt recommended to transfer growths ultrasound surveillance to [facility] in [facility] if able -Otherwise, will ctn Radiology scans and referral back to [facility] if indicated -Will also need surveillance [...] 03/13/24: MFM ADAPT consult complete. Enrolled in Current Health. Instructions provided to report blood sugars each week for M review. 03/19/20247957-XJF-rcqqtagm 4 days. Elevated fasting blood sugars. Advised to watch diet, eat bedtime snack, and avoid fasting longer than 8 to 10 hours. Will review again next week, and if persists, will schedule for follow up ADAPT with maternal medicine nurse practitioner. 03/27/20247978-GQC-vkvnzhl stable (< 50% elevated) 04/02/20243727-CZJ-vzvmziz stable (3 of 7 elevated fasting blood sugars). Will review again next week. Last Assessment & Plan: -Ctn to work [...] postprandial blood sugars and report weekly via [employer]. Nutrition consult is scheduled for 03/18. Hemoglobin [...] as of this encounter (statuses as of 04/04/2024) Resolved Problems Problem Noted Date Diagnosed Date [...] as of this encounter (statuses as of 04/04/2024) Immunizations Name Administration Dates Next Due COVID-19 [...] of Binge Drinking Not on file 01/10 Wolcott Depression Scale Answer Date Recorded Wolcott Depression Scale Total 0 11/09/2023 The thought of harming myself has occurred to me . Never 11/09/2023 Utilities Answer Date Recorded Do you have trouble paying y our heating, water, or electric bill? (Adult - for ages 18 years and over) Not on file 02/27/2024 Is your family able to pay t he heat, water, or electric bill? (Household - for ages 0-17 years) Not on file 02/27/2024 Does your family have access to good internet? (Household - for ages 0-17 years) Not on file 02/27/2024 Social Connections Answer Date Recorded How often do you feel lonely or isolated from those around you? (Adult - for ages 18 years and over) Not on file 02/27/2024 Estimated Date of Delivery Comme nts Yes 05/28/2024 Based on Ultraso und Sex and Gender Information Value Date Recorded Sex Assigned at Female 02/22/2022 9:42 AM EDT Gender Identity Female 02/22/2022 9:42 AM EDT Sexual Orientation Straight 02/22/2022 9 :42 AM EDT Job Start Date Occupation Industry Not on file Not on file Not on file documented as of this encounter Miscellaneous Notes * Telephone Encounter - Darwin Momin PA-C - 04/04/2024 5:46 PM EDTSigned Prescriptions: Disp Refills OneTouch Verio In Vitro Strip (Glucose Blo*500 St*2 Sig: Check blood sugar 4x/dayAuthorizing Provider: DARWIN MOMIN * Telephone Encounter - Yasmine Bains LPN - 04/04/2024 3:05 PM EDTPending Prescriptions: Disp Refills OneTouch Verio In Vitro Strip (Glucose Blo*500 St*2 Sig: Checkblood sugar 4x/day documented in this encounter Plan of Treatment Upcoming Encounters Date Type Department Care Team (Late st Contact Info) Description 04/11/2024 3:30 PM EDT Imaging Radiology [facility] 2nd [facility] [address] [facility] [place] [address] 04/11/2024 4:15 PM EDT Office Visit Gynecology/Obstetrics [facility] [address] [facility] [place] [address] Rica Hemphill MD [address] [place] [address] [place] [address] 04/18/2024 3:30 PM EDT Office Visit Marketing Financial Analyst Obstetrics [facility], [address] [id number] Jf Polanco, [address] [place] [address] 04/18/2024 3:30 PM EDT Imaging Radiology [facility], [place] [address] [place], [place] [id number] 04/26/2024 9:30 AM EDT Pharmacy Pharmacy, [address] [phone] [place] [address] [place], [place] [id number] Health Maintenance Due Date Last Done Comments Depression Screening 11/14/2017 11/14/2016 HPV/Co-Test 2021 COVID-19 Vaccine (24 season) 2023 05/26/2021, 05/05/2021 Influenza Vaccine (FLU shot) (#1) 2024 Cervical Cancer Screening 02/22/2025 Pap Smear 02/22/2025 02/22/2022, 01/10, 11/11/2015, Additional history exists DTaP,Tdap,and Td Vaccines (8 - Td or Tdap) 06/27/2032 [...] gestational diabetes mellitus (GDM) in third trimester documented in this encounter Care Teams Assembler Metal Building Relationship Specialty Start Date End Date Mehnaz Capone DO [address] [facility] [place] [address] PCP - General Family Medicine 03/02/16 documented as of this encounter
--- OUTSIDE RECORDS SUMMARY | 2024-05-31 03:28 | External Medical Summary | Summary of Care ---
Author Name Unknown Organization [facility] Address [address] [facility] [place] [address] Phone [phone] Care Team Providers Care Business Integration Analyst Name Role Phone Mehnaz Capone DO Primary Care Provider [phone] Reason for Visit * Reason Comments Return Visit Non Stress Test Encounter Details Date Type Department Care Team (Late st Contact Info) Description 05/08/2024 2:30 PM EDT Office Visit Gynecology/Obstetric s [facility] [address] [place] [address] Meenakshi Perry CRNP [address] [place] [address] [facility], Non Stress Tests [facility] [address] [place] [address] , supervision, high-risk, third trimester*; Obesity in , antepartum; Diet controlled gestational diabetes mellitus (GDM) in third trimester; Antepartum anemia complicating ; Class 2 obesity without serious comorbidity with body mass index (BMI) of 35.0 to 35.9 in adult, unspecified obesity type Allergies No known active allergiesdocumented as of this encounter (statuses as of 05/08/2024) Medications Medication Sig Dispensed Refills Start Date [...] as of this encounter (statuses as of 05/08/2024) Active Problems Problem Noted Date Diagnosed Date Class 2 obesity without seri ous comorbidity with body mass index (BMI) of 35.0 to 35.9 in adult 03/21/2024 Last Assessment & Plan: -Growth today WNL -Pt recommended to transfer growths ultrasound surveillance to [facility] in [facility] if able -Otherwise, will ctn Radiology scans and referral back to [facility] if indicated -Will also need surveillance [...] - [facility] 94 03/11/2024 09:17 AM 03/13/24: [facility] ADAPT consult complete. Enrolled in Current Health. Instructions provided to report blood sugars each week for [facility] review. 03/19/20240197-WDV-gqpkvvtp 4 days. Elevated fasting blood sugars. Advised to watch diet, eat bedtime snack, and avoid fasting longer than 8 to 10 hours. Will review again next week, and if persists, will schedule for follow up ADAPT with maternal medicine nurse practitioner. 03/27/20246598-INP-afofyjm stable (< 50% elevated) 04/02/20243900-ZRM-zkvmrfp stable (3 of 7 elevated fasting blood sugars). Will review again next week. 04/10/24: RPM reviewed; Stable; diet controlled 04/17/20244882-CWR-rubeziz stable (rare elevation) 04/24/20243705-GAA-gnzido 05/01/20244622-XZX-kvxtjf. Some missed readings. 05/07/20247252-UUO-pthfkn Last Assessment & Plan: -Ctn to work [...] at 37 weeks. , supervision, high-risk, third [facility] 11/09/2023 Iron deficiency anemia 06/15/2022 Overview: Repeat cbc 32-33 weeks Supervision of high risk in third [facility] 03/07/2022 Overview: GDM diagnosed at 13 weeks by abnormal 3 hour GTT. Hemoglobin A1c WNL. Patient has history of PCOS. Glucometer and testing supplies ordered to patient's preferred pharmacy. Will begin testing fasting and 1 hour postprandial blood sugars and report weekly via [employer]. Nutrition consult is scheduled for 03/18. Hemoglobin AIC Results: Lab Results Component Value Date/Time HEMOGLOBIN A1C - [employer] 5.4 02/28/2022 09:18 AM Results for AVI [...] as of this encounter (statuses as of 05/08/2024) Resolved Problems Problem Noted Date Diagnosed Date [...] as of this encounter (statuses as of 05/08/2024) Immunizations Name Administration Dates Next Due COVID-19 [...] money to get more. Never true 05/08/2024 Gideon Depression Scale Answer Date Recorded Gideon Depression Scale Total 1 04/22/2024 The thought [...] No 05/08/2024 Does the household have a [facility] source of income? (Household - for ages [...] Sign Reading Time Taken Comments Blood Pressure 96/56 05/08/2024 2:33 PM EDT Pulse - - Temperature - - Respiratory Rate - - Oxygen Saturation - - Inhaled Oxygen Concentration - - Weight 97.1 kg (214 lb) 05/08/2024 2:33 PM EDT Height 167 cm (5' 5.75") 05/08/2024 2:33 PM EDT Body Mass Index 34.8 05/08/2024 2:33 PM EDT documented in this encounter Progress Notes * Meenakshi Perry CRNP - 05/08/2024 3:09 PM EDT 37w1d No concerns. Baby is active. No contractions, bleeding, LOF. Following with ADAPT, blood sugars well managed with diet. GBS today. Courtesy Booth Cashier Documentation Provider requested water treatment operator. Name of water treatment operator: Alessandra ASSESSMENT assessment with Non-stress Test completed on 05/08/2024 at 37.1weeks gestation for indication of obesity heart baseline: 130 bpm Variability: Moderate Decelerations: absent Accelerations: present Contractions: None NST start time: 2145 (per time stamp on NST machine) NST stop time: 2212 NST strip reviewed, interpreted, and approved by OB provider, ZAINAB Cool . NST strip stored in clinic storage file documented in this encounter Miscellaneous Notes * Addendum Note - Alessandra Medina LPN - 05/08/2024 3:19 PM EDT Addended by: ALESSANDRA MEDINA on: 05/08/2024 03:19 PM Modules accepted: Orders documented in this encounter Plan of Treatment Upcoming Encounters Date Type Department Care Team (Late st Contact Info) Description 05/14/2024 3:30 PM EDT Imaging Radiology [facility] 2nd [facility] [address] [place] [address] 05/15/2024 1:45 PM EDT Office Visit Gynecology/Obstetrics [facility] [address] [place] [address] Meenakshi Perry CRNP [address] [place] [address] Sandrita Alberts Stress Tests [facility] [address] [place] [address] 05/22/2024 1:45 PM EDT Office Visit Gynecology/Obstetrics [facility] [address] [place] [address] Meenakshi Perry CRNP [address] [place] [address] [facility], Non Stress Tests [facility] [address] [place] [address] Pending Results Name Type Priority Associated Diagnoses Date /Time GROUP B STREP CULTURE/PCR Lab Routine , supervision, high-risk, third trimester 05/08/2024 3:19 PM EDT Health Maintenance Due Date Last Done Comments Depression Screening 11/14/2017 11/14/2016 HPV/Co-Test 2021 COVID-19 Vaccine ( season) 2023 05/26/2021, 05/05/2021 Influenza Vaccine (FLU [...] third trimester Antepartum anemia complicating Anemia, antepartum documented in this encounter Care Teams Business Integration Analyst Relationship Specialty Start Date End Date Mehnaz Capone DO [address] [place] [address] PCP - General Family Medicine 03/02/16 documented as of this encounter
--- OUTSIDE RECORDS SUMMARY | 2024-05-31 03:28 | External Medical Summary | Summary of Care ---
Author Name Unknown Organization [facility] Address [address] [facility] [place] [address] Phone [phone] Care Team Providers Care Alcohol Law Enforcement Agent Name Role Phone Mehnaz Capone DO Primary Care Provider [phone] Reason for Visit * Reason Comments Return Visit Non Stress Test Encounter Details Date Type Department Care Team (Late st Contact Info) Description 05/08/2024 2:30 PM EDT Office Visit Gynecology/Obstetric s [facility] [address] [place] [address] Meenakshi Perry CRNP [address] [place] [address] [facility], Non Stress Tests [facility] [address] [place] [address] , supervision, high-risk, third trimester*; Obesity in [...] to transfer growths ultrasound surveillance to [facility] in [facility] if able -Otherwise, will ctn Radiology scans and referral back to [facility] if indicated -Will also need [...] [facility] 94 03/11/2024 09:17 AM 03/13/24: [facility] ADAPT consult complete. Enrolled in Current Health. Instructions provided to report blood sugars each week for [facility] review. 03/19/20242463-JWE-cwuxlqow 4 days. Elevated fasting blood sugars. Advised to watch diet, eat bedtime snack, and avoid fasting longer than 8 to 10 hours. Will review again next week, and if persists, will schedule for follow up ADAPT with maternal medicine nurse practitioner. 03/27/20240446-YQX-mmkyxsk stable (< 50% elevated) 04/02/20245473-JES-jqnjtev stable (3 of 7 elevated fasting blood sugars). Will review again next week. 04/10/24: RPM reviewed; Stable; diet controlled 04/17/20247671-OOE-pshtekf stable (rare elevation) 04/24/20246013-WGC-zxrpmb 05/01/20248421-FXT-unqewj. Some missed readings. 05/07/20249602-LLJ-ohfwuk Last Assessment & Plan: -Ctn to work [...] at 37 weeks. , supervision, high-risk, third [facility] 11/09/2023 Iron deficiency anemia 06/15/2022 Overview: Repeat cbc 32-33 weeks Supervision of high risk in third [facility] 03/07/2022 Overview: GDM diagnosed at 13 weeks by abnormal 3 hour GTT. Hemoglobin A1c WNL. Patient has history of PCOS. Glucometer and testing supplies ordered to patient's preferred pharmacy. Will begin testing fasting and 1 hour postprandial blood sugars and report weekly via [email or web address]. Nutrition consult is scheduled for 03/18. Hemoglobin AIC Results: Lab Results Component Value Date/Time HEMOGLOBIN A1C - [employer] 5.4 02/28/2022 09:18 AM Results for AVI [...] money to get more. Never true 05/08/2024 [place] Depression Scale Answer Date Recorded [place] Depression Scale Total 1 04/22/2024 The thought [...] No 05/08/2024 Does the household have a [facility] source [facility] income? (Household - for ages [...] sugars well managed with diet. GBS today. Inventory Representative Documentation Provider requested drawer liner. Name of drawer liner: Alessandra ASSESSMENT assessment with Non-stress Test completed [...] Description 05/14/2024 3:30 PM EDT Imaging Radiology [facility] 2nd [facility] [address] [place] [address] 05/15/2024 1:45 PM EDT Office Visit Gynecology/Obstetrics [facility] [address] [place] [address] Meenakshi Perry CRNP [address] [place] [address] Sandrita Alberts Stress Tests [facility] [address] [place] [address] 05/22/2024 1:45 PM EDT Office Visit Gynecology/Obstetrics [facility] [address] [place] [address] Meenakshi Perry CRNP [address] [place] [address] [facility], Non Stress Tests [facility] [address] [place] [address] Pending Results Name Type Priority Associated Diagnoses [...] antepartum documented in this encounter Care Teams Alcohol Law Enforcement Agent Relationship Specialty Start Date End Date Mehnaz Capone DO [address] [place] [address] PCP - General Family Medicine 03/02/16 documented as of this encounter
--- OUTSIDE RECORDS SUMMARY | 2024-05-31 03:28 | External Medical Summary ---
Author Name Unknown Address Unknown Organization [id number]:[facility] [place] [address] [place] [address] Laboratory Report Ordering Provider Test Date Status [facility] 05/08/2024 15:19:31 Final Observation Date Value Abnormality Reference (Units ) Status Streptococcus agalactiae DNA [Presence] in Specimen by DENI with probe detection 05/08/2024 15:19:31 Positive Abnormal Negative Final Group B Streptococcus detect ed by culture-enhanced PCR (amplified probe). GBS GBSCT - [facility] 05/08/2024 15:19:31 15.5 Final GBS SPCCT - [facility] 05/08/2024 15:19:31 0.0 Final Performing Location [facility] [facility] [place] [facility] [address]
--- OUTSIDE RECORDS SUMMARY | 2024-05-31 03:28 | External Medical Summary ---
Author Name Unknown Address Unknown Organization [id number][place] [place] [address] [facility] [place] [address] Laboratory Report Ordering Provider Test Date Status DARIUS GUZMÁN 04/29/2024 13:36:37 Final Observation Date Value Abnormality Reference (Units ) Status SYNC LEUKOCYTES IN BLOOD BY AUTOMATED COUNT 04/29/2024 13:36:37 10.50 4.00-10.80 (K/uL) Final Segs 04/29/2024 13:36:37 68.6 40.0-75.0 (%) Final Lymphs % 04/29/2024 13:36:37 20.4 18.0-42.0 (%) Final Monos 04/29/2024 13:36:37 8.3 1.0-11.0 (%) Final Eosinophils 04/29/2024 13:36:37 0.8 0.0-6.0 (%) Final Basos 04/29/2024 13:36:37 0.3 0.0-2.0 (%) Final Immature Granulocyte, Percent 04/29/2024 13:36:37 1.6 0.0-2.0 (%) Final Absolute Segs 04/29/2024 13:36:37 7.21 1.80-7.70 (K/uL) Final Lymphs, absolute 04/29/2024 13:36:37 2.14 1.00-4.80 (K/ul) Final Monos, Abs 04/29/2024 13:36:37 0.87 0.00-1.10 (K/uL) Final Eos, Abs 04/29/2024 13:36:37 0.08 0.00-0.70 (K/uL) Final Basos, Abs 04/29/2024 13:36:37 0.03 0.00-0.20 (K/uL) Final Immature Granulocytes, Number 04/29/2024 13:36:37 0.17 0.00-0.20 (K/uL) Final Performing Location [facility] [place] [address] [facility] [address]
--- OUTSIDE RECORDS SUMMARY | 2024-05-31 03:28 | External Medical Summary ---
Author Name Unknown Address Unknown Organization [id number]:[facility]ORY [facility] [place] - [address] [place] [address] Laboratory Report Ordering Provider Test Date Status DARIUS GUZMÁN 04/29/2024 13:36:37 Final Observation Date Value Abnormality Reference (Units ) Status Folic Acid 04/29/2024 13:36:37 >20.0 >4.5 (ng/ mL) Final Performing Location LAB[facility]ATORY [facility] - [address] [place] [address]
--- OUTSIDE RECORDS SUMMARY | 2024-05-31 03:28 | External Medical Summary ---
Author Name Unknown Address Unknown Organization K01:[facility] - [address] [place] [address] Laboratory Report Ordering Provider Test Date Status DARIUS GUZMÁN 04/29/2024 13:36:37 Final Observation Date Value Abnormality Reference (Units ) Status Ferritin 04/29/2024 13:36:37 172 Above high normal 13 -150 (ng/mL) Final Performing Location [facility]ATORY [facility] - [address] [place] [address]
--- OUTSIDE RECORDS SUMMARY | 2024-05-31 03:28 | External Medical Summary | Summary of Care ---
Author Name Unknown Organization [facility] Address [address] [facility] [place] [address] Phone [phone] Care Team Providers Care Facsimile Operator Name Role Phone Mehnaz Capone DO Primary Care Provider [phone] Reason for Visit * Reason Onset Date Comments Medication Refill 05/06/2024 Encounter Details Date Type Department Care Team (Late st Contact Info) Description 05/06/2024 Refill Gynecology/Obstetrics [facility] [address] [place] [address] Daina Momin PA-C [address] [place] [address] Diet controlled gestational diabetes mellitus (GDM) in third trimester Allergies No known active allergiesdocumented as of this encounter (statuses as of 05/06/2024) Medications Medication Sig Dispensed Refills Start Date [...] sugar 4x/day 500 Strip 2 05/06/2024 Active GraymaticsTouch Verio In Vitro Strip (Glucose Blood)Indications: Diet controlled gestational diabetes mellitus (GDM) in third trimester Check blood sugar 4x/day 500 Strip 2 04/04/2024 05/06/2024 Discontinued (Refill) documented as of this encounter (statuses as of 05/06/2024) Active Problems Problem Noted Date Diagnosed Date Class 2 obesity without seri ous comorbidity with body mass index (BMI) of 35.0 to 35.9 in adult 03/21/2024 Last Assessment & Plan: -Growth today WNL -Pt recommended to transfer growths ultrasound surveillance to [facility] in [facility] if able -Otherwise, will ctn Radiology scans and referral back to [facility] if indicated -Will also need surveillance at [...] to report blood sugars each week for [facility] review. 03/19/20245218-MKG-kkwajgnp 4 days. Elevated fasting blood sugars. Advised to watch diet, eat bedtime snack, and avoid fasting longer than 8 to 10 hours. Will review again next week, and if persists, will schedule for follow up ADAPT with maternal medicine nurse practitioner. 03/27/20245140-MFZ-jbtbhqu stable (< 50% elevated) 04/02/20244212-AAM-zbpikiu stable (3 of 7 elevated fasting blood sugars). Will review again next week. 04/10/24: RPM reviewed; Stable; diet controlled 04/17/20243469-MXV-jhmyqtg stable (rare elevation) 04/24/20242707-QXU-ftzueq 05/01/20248467-UMD-uystxw. Some missed readings. Last Assessment & Plan: -Ctn to work [...] postprandial blood sugars and report weekly via [employer]. Nutrition consult is scheduled for 03/18. Hemoglobin AIC Results: Lab Results Component Value Date/Time HEMOGLOBIN A1C - [facility] 5.4 02/28/2022 09:18 AM Results for AVI PIERRE ( ) as of 03/07/2022 09:01 Ref. [...] as of this encounter (statuses as of 05/06/2024) Resolved Problems Problem Noted Date Diagnosed Date [...] as of this encounter (statuses as of 05/06/2024) Immunizations Name Administration Dates Next Due COVID-19 mRNA, LNP-s, No Pre serve, 2-Dose Series ([employer]) 05/26/2021,05/05/2021 Meningococcal Conjugate Vaccine (Menactra/Menveo ) 08/10/2007 [...] of Binge Drinking Not on file 01/10 [place] Depression Scale Answer Date Recorded [place] Depression Scale Total 1 04/22/2024 The thought of harming myself has occurred to me . Never 04/22/2024 Utilities Answer Date Recorded Do you have [...] encounter Miscellaneous Notes * Telephone Encounter - Suraj Anderson CRNP - 05/06/2024 1:27 PM EDT Signed Prescriptions: Disp Refills OneTouch Verio In Vitro Strip (Glucose Blo*500 St*2 Sig: Check blood sugar 4x/day Authorizing Provider: SURAJ ANDERSON * Telephone Encounter - Elin Guzman LPN - 05/06/2024 1:26 PM EDTPending Prescriptions: Disp Refills OneTouch Verio In Vitro Strip (Glucose Blo*500 St*2 Sig: Check blood sugar 4x/day documented in this encounter Plan of Treatment Upcoming Encounters Date Type Department Care Team (Late st Contact Info) Description 05/08/2024 2:30 PM EDT Office Visit Gynecology/Obstetrics [facility] [address] [place] [address] Meenakshi Perry CRNP [address] [place] [address] Sandrita Alberts Stress Tests [facility] [address] [place] [address] 05/14/2024 3:30 PM EDT Imaging Radiology [facility] 2nd Floor, [place] [address] [place] [address] 05/15/2024 1:45 PM EDT Office Visit Gynecology/Obstetrics [facility] [address] [place] [address] Meenakshi Perry CRNP [address] [place] [address] [place], Non Stress Tests [facility] [address] [place] [address] 05/22/2024 1:45 PM EDT Office Visit Gynecology/Obstetrics Otilia Alberts [address] [place] [address] Meenakshi Perry CRNP [address] [place] [address] [place], Non Stress Tests [facility] [address] [place] [address] Health Maintenance Due Date Last Done Comments [...] trimester documented in this encounter Care Teams Facsimile Operator Relationship Specialty Start Date End Date Mehnaz Capone DO [address] [place] [address] PCP - General Family Medicine 03/02/16 documented as of this encounter
--- OUTSIDE RECORDS SUMMARY | 2024-05-31 03:28 | External Medical Summary | Summary of Care ---
Author Name Unknown Organization [facility] Address [address] [facility] [place] [address] Phone [phone] Care Team Providers Care Swing Type Lathe Operator Name Role Phone Mehnaz Capone DO Primary Care Provider [phone] Reason for Visit * Reason Comments Return Visit Encounter Details Date Type Department Care Team (Late st Contact Info) Description 04/11/2024 4:15 PM EDT Office Visit Gynecology/Obstetric [facility] [address] [facility] [place] [address] Rica Hemphill MD [address] [place] [address] 33 weeks gestation of *; Obesity in , antepartum; Diet controlled gestational diabetes mellitus (GDM) in third trimester; Antepartum anemia complicating ; Class 2 obesity without serious comorbidity with body mass index (BMI) of 35.0 to 35.9 in adult, unspecified obesity type; Other specified related conditions, unspecified trimester Allergies No known active allergiesdocumented as of this encounter (statuses as of 04/11/2024) Medications Medication Sig Dispensed Refills Start Date [...] sugar 4x/day 500 Strip 2 04/04/2024 Active documented as of this encounter (statuses as of 04/11/2024) Active Problems Problem Noted Date Diagnosed Date Class 2 obesity without seri ous comorbidity with body mass index (BMI) of 35.0 to 35.9 in adult 03/21/2024 Last Assessment & Plan: -Growth today WNL -Pt recommended to transfer growths ultrasound surveillance to [facility] in [facility] if able -Otherwise, will ctn Radiology scans and referral back to [facility] if indicated -Will also need surveillance [...] to report blood sugars each week for [facility] review. 03/19/20246979-MMD-ggvfgqnp 4 days. Elevated fasting blood sugars. Advised to watch diet, eat bedtime snack, and avoid fasting longer than 8 to 10 hours. Will review again next week, and if persists, will schedule for follow up ADAPT with maternal medicine nurse practitioner. 03/27/20240770-KWN-visviqr stable (< 50% elevated) 04/02/20248800-SON-uqsznen stable (3 of 7 elevated fasting blood sugars). Will review again next week. 04/10/24: RPM reviewed; Stable; diet controlled Last Assessment & Plan: -Ctn to work [...] postprandial blood sugars and report weekly via [employer]. Nutrition consult is scheduled for 03/18. Hemoglobin AIC Results: Lab Results Component Value Date/Time HEMOGLOBIN A1C - [facility] 5.4 02/28/2022 09:18 AM Results for AVI [...] as of this encounter (statuses as of 04/11/2024) Resolved Problems Problem Noted Date Diagnosed Date [...] as of this encounter (statuses as of 04/11/2024) Immunizations Name Administration Dates Next Due COVID-19 mRNA, LNP-s, No Pre serve, 2-Dose Series ([employer]) 05/26/2021,05/05/2021 Meningococcal Conjugate Vaccine (Menactra/Menveo ) 08/10/2007 [...] of Binge Drinking Not on file 01/10 [place] Depression Scale Answer Date Recorded [place] Depression Scale Total 0 11/09/2023 The thought [...] Sign Reading Time Taken Comments Blood Pressure 100/62 04/11/2024 3:54 PM EDT Pulse - - Temperature - - Respiratory Rate - - Oxygen Saturation - - Inhaled Oxygen Concentration - - Weight 96.3 kg (212 lb 6.4 oz) 04/11/2024 3:54 P M EDT Height 167 cm (5' 5.75") 04/11/2024 3:54 PM EDT Body Mass Index 34.54 04/11/2024 3:54 PM EDT documented in this encounter Progress Notes * Rica Hemphill MD - 04/11/2024 4:22 PM EDT Avi Giraldo is a 33 year old female here for her routine OB appointment at 33w2d. Patient offers no complaints. She had OB US for interval growth today. Results are pending. Her Estimated Date of Delivery: 05/28/24 REVIEW OF SYSTEMS: She affirms movement. Denies vaginal bleeding, LOF, contractions, N/V, headaches [place] Depression Scale: No data recorded [place] suicide question and score: Score of 3 = Yes, quite often. Score of 2 = Sometimes. Score of 1 = Hardly ever No data recorded PHYSICAL EXAM: Filed Vitals: 04/11/24 1554 BP: 100/62 Weight: 96.3 kg (212 lb 6.4 oz) Height: 1.67 m (5' 5.75") +FHT 136 bpm Fundal height 34 cm ASSESSMENT/PLAN: (O99.210) Obesity in , antepartum Plan: Weekly NST from 37 weeks. OB US for interval growth every 4 weeks (O24.410) Diet controlled gestational diabetes mellitus (GDM) in third trimester Plan: Patient reports that her blood sugars are mostly within range. (O99.019) Antepartum anemia complicating Plan: Patient is s/p IV iron infusion. Patient will repeat CBC in 2 weeks. (Z3A.33) 33 weeks gestation of (primary encounter diagnosis) Plan: - labor precautions and kick counts reviewed - RTO in 2 weeks Rica Hemphill MD weeks documented in this encounter Nursing Notes * Landy Medina LPN - 04/11/2024 3:54 PM EDT 33w2d Growth US today- 42%, GLENN 14.7cm. documented in this encounter Plan of Treatment Upcoming Encounters Date Type Department Care Team (Late st Contact Info) Description 04/18/2024 3:30 PM EDT Office Visit Mediator Obstetrics [facility], [place] [address] [place] [address] Jf Polanco DO [address] [place] [address] 04/18/2024 3:30 PM EDT Imaging Radiology [facility], [place] [address] [place] [address] 04/26/2024 9:30 AM EDT Pharmacy Pharmacy, [place] [address] [place] [address] Clinic, [facility] [address] [place] [address] 05/14/2024 3:30 PM EDT Imaging Radiology [facility] 2nd [address] [place] [address] Scheduled Orders Name Type Priority Associated Diagnoses Orde r Schedule US PREG FOLLOW-UP EACH FETUS Medical Imaging Routine Obesity in , antepartum Other specified related conditions, unspecified trimester Expected: 05/12/2024, Expires: 10/12/2024 Health Maintenance Due Date Last Done Comments [...] as of this encounter Visit Diagnoses Diagnosis 33 weeks gestation of - Primary state, incidental Class 2 obesity without serious comorbidity with body mass index (BMI) of 35.0 to 35.9 in adult, unspecified obesity type Diet controlled gestational diabetes mellitus (GDM) in third trimester Antepartum anemia complicating Anemia, antepartum Other specified related conditions, unspecified trimester documented in this encounter Care Teams Swing Type Lathe Operator Relationship Specialty Start Date End Date Mehnaz Capone DO [address] [place] [address] PCP - General Family Medicine 03/02/16 documented as of this encounter
--- OUTSIDE RECORDS SUMMARY | 2024-05-31 03:28 | External Medical Summary | Summary of Care ---
Author Name Unknown Organization [facility] Address [address] [place] [address] Phone [phone] Care Team Providers Care Hot Dip Tinning Supervisor Name Role Phone Mehnaz Capone DO Primary Care Provider [phone] Reason for Visit * Reason Comments Outpatient Testing Encounter Details Date Type Department Care Team (Late st Contact Info) Description 04/29/2024 1:30 PM EDT Laboratory Laboratory, [place] [address] [place] [address] [place], Laboratory [address] [place] [address] Iron deficiency anemia, unspecified iron deficiency anemia type Allergies No known active allergiesdocumented as of this encounter (statuses as of 04/29/2024) Medications Medication Sig Dispensed Refills Start Date [...] as of this encounter (statuses as of 04/29/2024) Active Problems Problem Noted Date Diagnosed Date Class 2 obesity without seri ous comorbidity with body mass index (BMI) of 35.0 to 35.9 in adult 03/21/2024 Last Assessment & Plan: -Growth today WNL -Pt recommended to transfer growths ultrasound surveillance to [facility] in [facility] if able -Otherwise, will ctn Radiology scans and referral back to [facility] if indicated -Will also need surveillance [...] - [facility] 94 03/11/2024 09:17 AM 03/13/24: [facility] ADAPT consult complete. Enrolled in Current Health. Instructions provided to report blood sugars each week for [facility] review. 03/19/20248129-KIZ-dlmrbyub 4 days. Elevated fasting blood sugars. Advised to watch diet, eat bedtime snack, and avoid fasting longer than 8 to 10 hours. Will review again next week, and if persists, will schedule for follow up ADAPT with maternal medicine nurse practitioner. 03/27/20242549-LWG-xjtvdtj stable (< 50% elevated) 04/02/20248250-BCX-cznjhww stable (3 of 7 elevated fasting blood sugars). Will review again next week. 04/10/24: RPM reviewed; Stable; diet controlled 04/17/20247633-CKT-lbacjje stable (rare elevation) 04/24/20245281-RKO-ixkjvo Last Assessment & Plan: -Ctn to work [...] at 37 weeks. , supervision[email or web address] 11/09/2023 Iron deficiency anemia 06/15/2022 Overview: Repeat cbc 32-33 weeks Supervision of high risk in [facility] 03/07/2022 Overview: GDM diagnosed at 13 weeks by abnormal 3 hour GTT. Hemoglobin A1c WNL. Patient has history of PCOS. Glucometer and testing supplies ordered to patient's preferred pharmacy. Will begin testing fasting and 1 hour postprandial blood sugars and report weekly via [employer]. Nutrition consult is scheduled for 03/18. Hemoglobin AIC Results: Lab Results Component Value Date/Time HEMOGLOBIN A1C - [facility] 5.4 02/28/2022 09:18 AM Results for AVI [...] as of this encounter (statuses as of 04/29/2024) Resolved Problems Problem Noted Date Diagnosed Date [...] hr GTT now and repeat again at - weeks if early screen is normal. Recommend [...] as of this encounter (statuses as of 04/29/2024) Immunizations Name Administration Dates Next Due COVID-19 [...] of Binge Drinking Not on file 01/10 [place] Depression Scale Answer Date Recorded [place] Depression Scale Total 1 04/22/2024 The thought [...] on file documented as of this encounter Plan of Treatment Upcoming Encounters Date Type Department Care Team (Late st Contact Info) Description 05/08/2024 2:30 PM EDT Office Visit Gynecology/Obstetrics [facility] [address] [place] [address] Meenakshi Perry CRNP [address] [place] [address] Sandrita Alberts Stress Tests [place] [address] [place] [address] 05/14/2024 3:30 PM EDT Imaging Radiology [facility] 2nd Floor, [place] [address] [place], [place] [address] 05/15/2024 1:45 PM EDT Office Visit Gynecology/Obstetrics [facility] [address] [place], [place] [address] Meenakshi Perry, POURED CONCRETE WALL TECHNICIAN [address] [place] [address] [place], Non Stress Tests [place] [address] [place] [address] 05/22/2024 1:45 PM EDT Office Visit Gynecology/Obstetrics [facility]ia [facility] [address] [place] [address] Meenakshi Perry, POURED CONCRETE WALL TECHNICIAN [address] [place] [address] [place], Non Stress Tests [place] [address] [place], [place] [address] Pending Results Name Type Priority Associated Diagnoses Date /Time CBC WITH WBC DIFFERENTIAL Lab Routine Iron deficiency anemia, unspecified iron deficiency anemia type 04/29/2024 1:36 PM EDT IRON SCREEN, INCLUDING TIBC Lab Routine Iron deficiency anemia, unspecified iron deficiency anemia type 04/29/2024 1:36 PM EDT FERRITIN Lab Routine Iron deficiency anemia, unspecified iron deficiency anemia type 04/29/2024 1:36 PM EDT RETICULOCYTE PANEL Lab Routine Iron deficiency anemia, unspecified iron deficiency anemia type 04/29/2024 1:36 PM EDT FOLIC ACID Lab Routine Iron deficiency anemia, unspecified iron deficiency anemia type 04/29/2024 1:36 PM EDT VITAMIN B12 Lab Routine Iron deficiency anemia, unspecified iron deficiency anemia type 04/29/2024 1:36 PM EDT CBC Lab Routine Iron deficiency anemia, unspecified iron deficiency anemia type 04/29/2024 1:36 PM EDT DIFFERENTIAL, AUTOMATED Lab Routine Iron deficiency anemia, unspecified iron deficiency anemia type 04/29/2024 1:36 PM EDT Health Maintenance Due Date Last [...] Iron deficiency anemia, unspecified iron deficiency anemia type documented in this encounter Care Teams Hot Dip Tinning Supervisor Relationship Specialty Start Date End Date Mehnaz Capone DO [address] [place] [address] PCP - General Family Medicine 03/02/16 documented as of this encounter
--- OUTSIDE RECORDS SUMMARY | 2024-05-31 03:28 | External Medical Summary | Summary of Care ---
Author Name Unknown Organization [facility] Address [address] [place] [address] Phone [phone] Care Team Providers Care Bleach Mixer Name Role Phone Mehnaz Capone DO Primary Care Provider Reason for Visit * Reason Onset Date Comments Status Check Anemia Follow-Up 04/04/2024 Encounter Details Date Type Department Care Team (Late st Contact Info) Description 04/04/2024 2:30 PM EDT Pharmacy Pharmacy, [place] [address] [place] [address] Clinic, [place] [address] [place] [address] Iron deficiency anemia, unspecified iron deficiency anemia [...] 100 Each 6 03/11/2024 Active OneTouch Verio In Vitro Strip (Glucose Blood)Indications: t controlled gestational diabetes mellitus (GDM) in third trimester Check blood sugar 4x/day 500 Strip 2 03/11/2024 Active OneTouch Verio w/Device KitIndications:Diet controlled [...] recommended to transfer growths ultrasound surveillance to [facility] in [facility] if able -Otherwise, will ctn Radiology scans and referral back to [facility] if indicated -Will also need [...] - [facility] 94 03/11/2024 09:17 AM 03/13/24: [facility] ADAPT consult complete. Enrolled in Current Health. Instructions provided to report blood sugars each week for [facility] review. 03/19/20245494-BUV-kdumgqos 4 days. Elevated fasting blood sugars. Advised to watch diet, eat bedtime snack, and avoid fasting longer than 8 to 10 hours. Will review again next week, and if persists, will schedule for follow up ADAPT with maternal medicine nurse practitioner. 03/27/20243039-GTY-zzlbcrj stable (< 50% elevated) 04/02/20245686-ILE-liyyoyo stable (3 of 7 elevated fasting blood sugars). Will review again next week. Last Assessment & Plan: -Ctn to work with ADAPT Antepartum anemia complicating 07/01/2 024 Overview: Hgb 10.8 at 28 wks, [...] postprandial blood sugars and report weekly via [employer] Nutrition consult is scheduled for 03/18. Hemoglobin AIC Results: Lab Results Component Value Date/Time HEMOGLOBIN A1C - [facility] 5.4 02/28/2022 09:18 AM Results for [place], AVI N ( ) as of 03/07/2022 09:01 Ref. [...] diet 03/31/22: Stable 04/10/22: Stable aside from 37 fasting elevations. Will continue with diet for [...] of Binge Drinking Not on file 01/10 [place] Depression Scale Answer Date Recorded [place] Depression Scale Total 0 11/09/2023 The thought [...] as of this encounter Progress Notes * Landy Yoon RPh - 04/04/2024 3:02 PM EDT CBCd, ferritin, iron screen, retic panel, B12, FA ordered for 04/25/24. Landy Yoon PharmD, [facility] Clinical Pharmacist [facility] Anemia Clinic (P: [phone]) 04/04/2024 3:02 PM * Janel Tapia, supervisor pole yard - 04/04/2024 1:06 PM EDT Patient Phone Numbers Call to patient to schedule labs. Left vm for patient. Patient received Infed on 03/28. Labs due on 04/25. GA: 32w2d Estimated Date of Delivery: 05/28/24 Pharmacist - please place appropriate lab orders. Thank you, Janel Tapia Agricultural Consultant [facility] 04/04/2024,1:07 PM documented in this encounter Plan of Treatment Upcoming Encounters Date Type Department Care Team (Late st Contact Info) Description 04/11/2024 3:30 PM EDT [facility] [address] [place] [address] 04/11/2024 4:15 PM EDT Office Visit Gynecology/Obstetrics [facility] [address] [facility] [place] [address] Rica Hemphill MD [address] [place] [address] [place] [address] 04/18/2024 3:30 PM EDT Office Visit Tile Trimmer Obstetrics Maternal Medicine, [place] [address] [place] [address] fJ Polanco, [address] [place] [address] 04/18/2024 3:30 PM EDT Imaging Radiology [facility], [place] [address] [place] [address] 04/26/2024 9:30 AM EDT Pharmacy Pharmacy, [place] [address], [place] [id number] Clinic, An[facility] [address] [place] [address] Scheduled Orders Name Type Priority Associated Diagnoses Orde r Schedule CBC WITH WBC DIFFERENTIAL Lab Routine Iron deficiency anemia, unspecified iron deficiency anemia type Expected: 04/25/2024, Expires: 03/05/2025 IRON SCREEN, INCLUDING TIBC Lab Routine Iron deficiency anemia, unspecified iron deficiency anemia type Expected: 04/25/2024, Expires: 03/05/2025 FERRITIN Lab Routine Iron deficiency anemia, unspecified iron deficiency anemia type Expected: 04/25/2024, Expires: 03/05/2025 RETICULOCYTE PANEL Lab Routine Iron deficiency anemia, unspecified iron deficiency anemia type Expected: 04/25/2024, Expires: 03/05/2025 FOLIC ACID Lab Routine Iron deficiency anemia, unspecified iron deficiency anemia type Expected: 04/25/2024, Expires: 03/05/2025 VITAMIN B12 Lab Routine Iron deficiency anemia, unspecified iron deficiency anemia type Expected: 04/25/2024, Expires: 03/05/2025 Health Maintenance Due Date Last Done Comments [...] Primary documented in this encounter Care Teams Bleach Mixer Relationship Specialty Start Date End Date Mehnaz Capone DO [address] [place] [address] PCP - General Family Medicine 03/02/16 documented as of this encounter
--- OUTSIDE RECORDS SUMMARY | 2024-05-31 03:28 | External Medical Summary | Summary of Care ---
Author Name Unknown Organization [facility] Address [address] [facility] [address] Phone [phone] Care Team Providers Care Garnetter Name Role Phone Mehnaz Capone DO Primary Care Provider [phone] Reason for Visit * Reason Comments Return Visit Encounter Details Date Type Department Care Team (Late st Contact Info) Description 04/22/2024 1:30 PM EDT Office Visit Gynecology/Obstetric s Otilia Alberts [address] [place] [address] BackMaggi kaiser CRNP [address] [place] [address] , supervision, high-risk, third trimester*; Obesity in , antepartum; Diet controlled gestational diabetes mellitus (GDM) in third trimester; Antepartum anemia complicating ; Class 2 obesity without serious comorbidity with body mass index (BMI) of 35.0 to 35.9 in adult, unspecified obesity type Allergies No known active allergiesdocumented as of this encounter (statuses as of 04/22/2024) Medications Medication Sig Dispensed Refills Start Date [...] testing blood sugars. 1 Kit 03/18/2024 Active [employer] Ver[employer]thiam In Vitro Strip (Glucose Blood)Indications: t controlled gestational diabetes mellitus (GDM) in third trimester Check blood sugar 4x/day 500 Strip 2 04/04/2024 Active documented as of this encounter (statuses as of 04/22/2024) Active Problems Problem Noted Date Diagnosed Date Class 2 obesity without seri ous comorbidity with body mass index (BMI) of 35.0 to 35.9 in adult 03/21/2024 Last Assessment & Plan: -Growth today WNL -Pt recommended to transfer growths ultrasound surveillance to [facility] in [facility] if able -Otherwise, will ctn Radiology scans and referral back to [facility] if indicated -Will also need surveillance [...] to report blood sugars each week for [facility] review. 03/19/20240773-JXG-oyjwlxnc 4 days. Elevated fasting blood sugars. Advised to watch diet, eat bedtime snack, and avoid fasting longer than 8 to 10 hours. Will review again next week, and if persists, will schedule for follow up ADAPT with maternal medicine nurse practitioner. 03/27/20245415-DRX-prlwhkf stable (< 50% elevated) 04/02/20246146-OQP-gkrvloq stable (3 of 7 elevated fasting blood sugars). Will review again next week. 04/10/24: RPM reviewed; Stable; diet controlled 04/17/20246014-IHH-eoyedvz stable (rare elevation) Last Assessment & Plan: -Ctn to work [...] postprandial blood sugars and report weekly via Exploretrip. Nutrition consult is scheduled for 03/18. Hemoglobin [...] as of this encounter (statuses as of 04/22/2024) Resolved Problems Problem Noted Date Diagnosed Date [...] as of this encounter (statuses as of 04/22/2024) Immunizations Name Administration Dates Next Due COVID-19 mRNA, LNP-s, No Pre serve, 2-Dose Series (In Flow) 05/26/2021,05/05/2021 Meningococcal Conjugate Vaccine (Menactra/Menveo ) 08/10/2007 [...] of Binge Drinking Not on file 01/10 [place] Depression Scale Answer Date Recorded [place] Depression Scale Total 0 11/09/2023 The thought [...] Sign Reading Time Taken Comments Blood Pressure 98/58 04/22/2024 1:28 PM EDT Pulse - - Temperature - - Respiratory Rate - - Oxygen Saturation - - Inhaled Oxygen Concentration - - Weight 96.2 kg (212 lb) 04/22/2024 1:28 PM EDT Height 167 cm (5' 5.75") 04/22/2024 1:28 PM EDT Body Mass Index 34.48 04/22/2024 1:28 PM EDT documented in this encounter Progress Notes * Maggi Anderson CRNP - 04/22/2024 1:30 PM EDT 34w6d Doing well; baby is active. No ctx, leaking/bleeding. Working with ADAPT in managing GDMA 1. Provided with labor instructions today. Has not considered contraception plans. Last growth u/s on 04/11 showed EFW 42nd %ile, vertex. Return in 2 weeks, discussed GBS to be completed at that time. Start weekly NSTs at 37 weeks, these are scheduled. ZAINAB Schuster documented in this encounter Nursing Notes * Landy Medina LPN - 04/22/2024 1:31 PM EDT 34w6d Denies concerns Given labor instructions documented in this encounter Plan of Treatment Upcoming Encounters Date Type Department Care Team (Late st Contact Info) Description 04/26/2024 9:30 AM EDT Pharmacy Pharmacy, [place] [address] [place] [address] Clinic, [facility] [address] [place] [address] 05/08/2024 2:30 PM EDT [facility] [address] [place] [address] Meenakshi Perry CRNP [address] [place] [address] Sandrita Alberts Stress Tests [facility] [address] [place] [address] 05/14/2024 3:30 PM EDT Imaging Radiology [facility] 2nd Floor, [place] [address] [place] [address] 05/15/2024 1:45 PM EDT Office Visit Gynecology/Obstetrics Otilia Alberts [address] [place] [address] Meenakshi Perry CRNP [address] [place] [address] Alberts Non Stress Tests [place] [address] [place] [address] 05/22/2024 1:45 PM EDT Office Visit Gynecology/Obstetrics Otilia Alberts [address] [place] [address] Meenakshi Perry CRNP [address] [place] [address] Sandrita Alberts Stress Tests [place] [address] [place] [address] Health Maintenance Due Date Last Done Comments Depression Screening 11/14/2017 11/14/2016 HPV/Co-Test 2021 COVID-19 Vaccine (2022- season) 2023 05/26/2021, 05/05/2021 Influenza Vaccine (FLU [...] antepartum documented in this encounter Care Teams Garnetter Relationship Specialty Start Date End Date Mehnaz Capone DO [address] [place] [address] PCP - General Family Medicine 03/02/16 documented as of this encounter
--- OUTSIDE RECORDS SUMMARY | 2024-05-31 03:28 | External Medical Summary | Summary of Care ---
Author Name Unknown Organization [facility] Address [address] [facility] [place] [address] Phone [phone] Care Team Providers Care Car Inspection And Repair Manager Name Role Phone Mehnaz Capone DO Primary Care Provider [phone] Encounter Details Date Type Department Care Team (Late st Contact Info) Description 04/13/2024 Orders Only PATIENT PORTAL DO NOT DELETE THIS DEPT USED BY [place] [id number] Allergies No known active allergiesdocumented as of this encounter (statuses as of 04/13/2024) Medications Medication Sig Dispensed Refills Start Date [...] as of this encounter (statuses as of 04/13/2024) Active Problems Problem Noted Date Diagnosed Date Class 2 obesity without seri ous comorbidity with body mass index (BMI) of 35.0 to 35.9 in adult 03/21/2024 Last Assessment & Plan: -Growth today WNL -Pt recommended to transfer growths ultrasound surveillance to [facility] in [facility] if able -Otherwise, will ctn Radiology scans and referral back to [facility] if indicated -Will also need surveillance at [...] - [facility] 03/11/2024 09:17 AM 03/13/24: [facility] ADAPT consult complete. Enrolled in [facility] [employer]. Instructions provided to report blood sugars each week for [facility] review. 03/19/20241816-WZA-sczpgyhe 4 days. Elevated fasting blood sugars. Advised to watch diet, eat bedtime snack, and avoid fasting longer than 8 to 10 hours. Will review again next week, and if persists, will schedule for follow up ADAPT with maternal medicine nurse practitioner. 03/27/20243652-KOA-lpfiupr stable (< 50% elevated) 04/02/20247868-FAT-fcnitoa stable (3 of 7 elevated fasting blood [...] at 37 weeks. , supervision, high-risk, third [facility] er 11/09/2023 Iron deficiency anemia 06/15/2022 Overview: Repeat cbc 32-33 weeks Supervision of high risk in third [facility] 03/07/2022 Overview: GDM diagnosed at 13 weeks by abnormal 3 hour GTT. Hemoglobin A1c WNL. Patient has history of PCOS. Glucometer and testing supplies ordered to patient's preferred pharmacy. Will begin testing fasting and 1 hour postprandial blood sugars and report weekly via Mekitec. Nutrition consult is scheduled for 03/18. Hemoglobin [...] as of this encounter (statuses as of 04/13/2024) Resolved Problems Problem Noted Date Diagnosed Date [...] as of this encounter (statuses as of 04/13/2024) Immunizations Name Administration Dates Next Due COVID-19 [...] Frequency of Alcohol Consumption 2-4 times a mon 01/29/2019 Average Number of Drinks Not on file 019 Frequency of Binge Drinking Not on file 01/10 [place] Depression Scale Answer Date Recorded [place] Depression Scale Total 0 11/09/2023 The thought [...] Description 04/18/2024 3:30 PM EDT Office Visit Cylinder Press Operator Apprentice Obstetrics Maternal Medicine, [place] [address] [place] [address] Jf Polanco DO [address] [place] [address] 04/18/2024 3:30 PM EDT Imaging Radiology [facility] [place] [address] [place] [address] 04/26/2024 9:30 AM EDT Pharmacy Pharmacy, [place] [address] [place] [address] [facility], [place] [address] [place] [address] 05/14/2024 3:30 PM EDT Imaging Radiology [facility] [address] [facility], [address] [address] Health Maintenance Due Date Last Done Comments [...] filedocumented as of this encounter Care Teams Car Inspection And Repair Manager Relationship Specialty Start Date End Date Mehnaz Capone DO [address] [place] [address] PCP - General Family Medicine 03/02/16 documented as of this encounter
--- OUTSIDE RECORDS SUMMARY | 2024-05-31 03:28 | External Medical Summary | Summary of Care ---
Author Name Unknown Organization [facility] Address [address] [facility] [place] [address] Phone [phone] Care Team Providers Care Title 1 Tutor Name Role Phone Mehnaz Capone DO Primary Care Provider [phone] Reason for Visit * Reason Comments IV Therapy Infed. Encounter Details Date Type Department Care Team (Latest Contact Info) Description 03/28/2024 1:00 PM EDT Hem/Onc Treatment Hematology/Oncology Treatment, [address] [address] Sofya, Chair 10 Hem Onc [address] [address] Iron deficiency anemia, unspecified iron deficiency anemia type* Allergies No known active allergiesdocumented as of this encounter (statuses as of 04/18/2024) Medications Medication Sig Dispensed Refills Start Date [...] as of this encounter (statuses as of 04/18/2024) Active Problems Problem Noted Date Diagnosed Date Class 2 obesity without seri ous comorbidity with body mass index (BMI) of 35.0 to 35.9 in adult 03/21/2024 Last Assessment & Plan: -Growth today WNL -Pt recommended to transfer growths ultrasound surveillance to [facility] in [facility] if able -Otherwise, will ctn Radiology scans and referral back to [facility] if indicated -Will also need surveillance [...] report blood sugars each week for [facility] review. 03/19/20243946-XEE-klarxrqb 4 days. Elevated fasting blood sugars. Advised to watch diet, eat bedtime snack, and avoid fasting longer than 8 to 10 hours. Will review again next week, and if persists, will schedule for follow up ADAPT with maternal medicine nurse practitioner. 03/27/20247169-ASN-lyivudi stable (< 50% elevated) 04/02/20245866-JRP-vibemse stable (3 of 7 elevated fasting blood sugars). Will review again next week. 04/10/24: RPM reviewed; Stable; diet controlled 04/17/20247267-DCA-lrdhwtl stable (rare elevation) Last Assessment & Plan: [...] postprandial blood sugars and report weekly via Edvin. Nutrition consult is scheduled for 03/18. Hemoglobin [...] as of this encounter (statuses as of 04/18/2024) Resolved Problems Problem Noted Date Diagnosed Date [...] hr GTT now and repeat again at -28 weeks if early screen is normal. Recommend [...] as of this encounter (statuses as of 04/18/2024) Immunizations Name Administration Dates Next Due COVID-19 [...] of Binge Drinking Not on file 01/10 [place] Depression Scale Answer Date Recorded [place] Depression Scale Total 0 11/09/2023 The thought [...] Sign Reading Time Taken Comments Blood Pressure 102/66 03/28/2024 2:24 PM EDT Pulse 75 03/28/2024 2:24 PM EDT Temperature 36.2 C (97.2 F) 03/28/2024 2:24 PM ED T Respiratory Rate 18 03/28/2024 2:24 PM EDT Oxygen Saturation 96% 03/28/2024 2:24 PM EDT Inhaled Oxygen Concentration - - Weight - - Height - - Body Mass Index - - documented in this encounter Nursing Notes * Sandy Velez RN - 03/28/2024 3:12 PM EDT Goals: Patient will remain free from injury. Possible barriers to meeting goals: Fall risk d/t ambulation with IV pole. Stability of the patient: Moderately stable - low risk of patient condition declining or worsening Summary regarding today's goals: Met: Patient remained free of injury. Patient tolerated infusion well. Discharged in stable condition. * Sandy Velez RN - 03/28/2024 1:51 PM EDT Chair 9. Patient arrived for infed infusion with no acute complaints. Patient was oriented to infusion room and infusion process, patient verbalizes understanding. Call harman given to patient and instructed how to use, patient verbalized understanding. PIV established. Safety and Risk for Injury Patient will remain free from injury. Ensure appropriate safety devices are available. Provide and maintain safe environment. documented in this encounter Plan of Treatment Upcoming Encounters Date Type Department Care Team (Late st Contact Info) Description 04/22/2024 1:30 PM EDT Office Visit Gynecology/Obstetrics Otilia Alberts [address] [place] [address] Maggi Anderson CRNP [address] [place] [address] 04/26/2024 9:30 AM EDT Pharmacy Pharmacy, [place] [address] [place] [address] Clinic, [facility] [address] [place] [address] 05/08/2024 2:30 PM EDT Office Visit Gynecology/Obstetrics Otilia Alberts [address] [place] [address] Meenakshi Perry CRNP [address] [place] [address] Sandrita Alberts Stress Tests [place] [address] [place] [address] 05/14/2024 3:30 PM EDT Imaging Radiology [facility] 2nd [facility] [address] [place] [address] 05/15/2024 1:45 PM EDT Office Visit Gynecology/Obstetrics [facility] [address] [place] [address] Meenakshi Perry CRNP [address] [place] [address] Alberts, Non Stress Tests [facility] [address] [place] [address] 05/22/2024 1:45 PM EDT Office Visit Gynecology/Obstetrics [facility] [address] [place] [address] Meenakshi Perry CRNP [address] [place] [address] Alberts Non Stress Tests [facility] [address] [place] [address] Health Maintenance Due Date Last Done Comments [...] anemia type- Primary documented in this encounter Administered Medications Inactive Administered Medications - up to 3 most recent administrations Medication Order MAR Action Action Date Dose Rate Site Iron Dextran (Infed) 975 mg in NSS 250 mL INFUSION 975 mg, IV Piggyback, ONCE, 1 dose, On Tanja 03/28/24 at 1430, Administer over 1 Hours, - Administer iron dextran infusion bag (over 1 hour) - Monitor for infusion reaction with vitals and observe for reactions at 30 minutes and 60 minutes - If patient develops sign/symptoms of reaction or vital signs outside normal limits: 1) STOP infusion 2) CONTACT physician Start Infusion 03/28/2024 1:56 PM EDT 975 mg 274.5 mL/hr Iron Dextran (Infed) IV Push TEST DOSE 25 mg IV Push, Administer over 0.5 Minutes, Educate patient on sign/symptoms of infusion reaction -Administer 25 mg test dose of iron dextran before infusion bag -Observe patient for sign/symptoms of reaction with vitals sign before test dose and 15 minutes after -If patient tolerates test dose with no reaction, proceed with iron dextran infusion -HOLD infusion and contact physician immediately if patient reacts to test dose, ONCE, 1 dose, On Tanja 03/28/24 at 1415 Given 03/28/2024 1:37 PM EDT 25 mg NSS infusion Intravenous, at 50 mL/hr, PRN, Starting on Tanja 03/28/24 at 1415, Until Tanja 03/28/24 at 1633, Maintenance line Start Infusion 03/28/2024 1:21 PM EDT 50 mL/hr documented in this encounter Care Teams Title 1 Tutor Relationship Specialty Start Date End Date Mehnaz Capone DO [address] [place] [address] PCP - General Family Medicine 03/02/16 documented as of this encounter
--- OUTSIDE RECORDS SUMMARY | 2024-05-31 03:28 | External Medical Summary | Summary of Care ---
Author Name Unknown Organization [facility] Address [address] [facility] [place] [address] Phone [phone] Care Team Providers Care Metal Filer Name Role Phone Mehnaz Capone DO Primary Care Provider [phone] Reason for Visit * Reason Comments IV Therapy Infed. Encounter Details Date Type Department Care Team (Latest Contact Info) Description 03/28/2024 1:00 PM EDT Hem/Onc Treatment Hematology/Oncology Treatment, [address] [address] Sofya, Chair 10 Hem Onc [address] [address] Iron deficiency anemia, unspecified iron [...] recommended to transfer growths ultrasound surveillance to [facility] in [facility] if able -Otherwise, will ctn Radiology scans and referral back to [facility] if indicated -Will also need [...] to report blood sugars each week for [facility] review. 03/19/20245512-INK-xmizursh 4 days. Elevated fasting blood sugars. Advised to watch diet, eat bedtime snack, and avoid fasting longer than 8 to 10 hours. Will review again next week, and if persists, will schedule for follow up ADAPT with maternal medicine nurse practitioner. 03/27/20240946-JEZ-clrvcaz stable (< 50% elevated) 04/02/20249257-JLP-cdngecg stable (3 of 7 elevated fasting blood sugars). Will review again next week. 04/10/24: RPM reviewed; Stable; diet controlled 04/17/20248054-YAZ-afcqcwr stable (rare elevation) Last Assessment & Plan: [...] of Binge Drinking Not on file 01/10 [place] Depression Scale Answer Date Recorded [place] Depression Scale Total 0 11/09/2023 The thought [...] Visit Gynecology/Obstetrics Otilia Alberts [address] [place] [address] Maggi Anderson CRNP [address] [place] [address] 04/26/2024 9:30 AM EDT Pharmacy Pharmacy, [place] [address] [place] [address] Clinic, [facility] [address] [place] [address] 05/08/2024 2:30 PM EDT Office Visit Gynecology/Obstetrics Otilia Alberts [address] [place] [address] Meenakshi Perry CRNP [address] [place] [address] Sandrita Alberts Stress Tests [place] [address] [place] [address] 05/14/2024 3:30 PM EDT Imaging Radiology [facility] 2nd [facility] [address] [place] [address] 05/15/2024 1:45 PM EDT Office Visit Gynecology/Obstetrics [facility] [address] [place] [address] Meenakshi Perry CRNP [address] [place] [address] Alberts, Non Stress Tests [facility] [address] [place] [address] 05/22/2024 1:45 PM EDT Office Visit Gynecology/Obstetrics [facility] [address] [place] [address] Meenakshi Perry CRNP [address] [place] [address] Alberts Non Stress Tests [facility] [address] [place] [address] Health Maintenance Due Date Last Done Comments [...] Intravenous, at 50 mL/hr, PRN, Starting on Tanaj 03/28/24 at 1415, Until Tanja 03/28/24 at 1633, Maintenance line Start Infusion 03/28/2024 1:21 PM EDT 50 mL/hr documented in this encounter Care Teams Metal Filer Relationship Specialty Start Date End Date Mehnaz Capone DO [address] [place] [address] PCP - General Family Medicine 03/02/16 documented as of this encounter
--- OUTSIDE RECORDS SUMMARY | 2024-05-31 03:28 | External Medical Summary ---
Author Name Unknown Address Unknown Organization K01:[facility] [place] [address] [facility] [address] [facility] [address] Laboratory Report Ordering Provider Test Date Status DARIUS GUZMÁN 04/29/2024 13:36:37 Final Observation Date Value Abnormality Reference (Units ) Status WBC, Total 04/29/2024 13:36:37 10.50 4.00-10.80 (K/uL) Final RBC 04/29/2024 13:36:37 3.61 3.85-5.15 (M/uL) Final Hemoglobin 04/29/2024 13:36:37 11.3 Below low normal 12.0-15.3 (g/dL) Final HCT 04/29/2024 13:36:37 33.8 Below low normal 36.0-45.2 (%) Final MCV 04/29/2024 13:36:37 93.6 81.5-97.5 (fL) Final MCH 04/29/2024 13:36:37 31.3 27.0-34.0 (pg) Final MCHC 04/29/2024 13:36:37 33.4 32.0-36.0 (g/dL) Final RDW 04/29/2024 13:36:37 15.6 11.5-15.5 (%) Final Platelets 04/29/2024 13:36:37 157 140-400 (K/uL) Final MPV 04/29/2024 13:36:37 11.5 6.6-11.1 (fL) Final Nucleated erythrocytes/100 leukocytes [Ratio] in Blood by Automated count 04/29/2024 13:36:37 0 <=0 (/100 WBCs) Final Performing Location [facility] [address] [facility] [address]
--- OUTSIDE RECORDS SUMMARY | 2024-05-31 03:28 | External Medical Summary | Summary of Care ---
Author Name Unknown Organization [facility] Address [address] [facility] [facility] [address] Phone [phone] Care Team Providers Care Gravel Wheeler Name Role Phone Mehnaz Capone DO Primary Care Provider [phone] Reason for Visit * Reason Comments Return Visit Encounter Details Date Type Department Care Team (Late st Contact Info) Description 04/22/2024 1:30 PM EDT Office Visit Gynecology/Obstetric s Otilia Alberts [address] [place] [address] BackMaggi kaiser CRNP [address] [place] [address] , supervision, high-risk, third trimester*; Obesity in [...] testing blood sugars. 1 Kit 03/18/2024 Active [employer] Mogul In Vitro Strip (Glucose Blood)Indications: t controlled [...] recommended to transfer growths ultrasound surveillance to [facility] in [facility] if able -Otherwise, will ctn Radiology scans and referral back to [facility] if indicated -Will also need surveillance [...] to report blood sugars each week for [facility] review. 03/19/20249785-[id number]-qgmggivd 4 days. Elevated fasting blood sugars. Advised to watch diet, eat bedtime snack, and avoid fasting longer than 8 to 10 hours. Will review again next week, and if persists, will schedule for follow up ADAPT with maternal medicine nurse practitioner. 03/27/[id number]-MJV-dpqbiah stable (< 50% elevated) 04/02/20244610-NGB-qvimmef stable (3 of 7 elevated fasting blood sugars). Will review again next week. 04/10/24: RPM reviewed; Stable; diet controlled 04/17/20247540-ULZ-ntetawx stable (rare elevation) Last Assessment & Plan: [...] postprandial blood sugars and report weekly via [employer]. Nutrition consult is scheduled for 03/18. Hemoglobin [...] from assisted reproductive technology 02/22/2022 10/18/2022 Overview: Matthew, [employer]ara Last Assessment & Plan: DISCUSSION: 1. [...] mRNA, LNP-s, No Pre serve, 2-Dose Series (PerfectHitch) 05/26/2021,05/05/2021 DTaP Dipth/Tet/Acell Pertussis (Infanrix), Peds 05/06/1996,09/21/1992,03/02/1992,12/02,1991 HIB PRP-T, 4 Dose, PF, IM (H iberix, ActHib) 09/21/1992,03/02/1992,1991,10/07 Hepatitis B, 0-19 yrs 07/02/1997,02/06/1997,/ MMR - Measles/Mumps/Rubella Vaccine 01/08/1997,0 09/21/1992 Meningococcal [...] of Binge Drinking Not on file 01/10 [place] Depression Scale Answer Date Recorded [place] Depression Scale Total 0 11/09/2023 The thought [...] Description 04/26/2024 9:30 AM EDT Pharmacy Pharmacy, [facility] [address] [place] [address] Clinic, [place] [address] [place] [address] 05/08/2024 2:30 PM EDT Office Visit Gynecology/Obstetrics [facility] [address] [place] [address] Meenakshi Perry CRNP [address] [place] [address] Ariste[place], Non Stress Tests [place] [address] [address] [place] [id number] 05/14/2024 3:30 PM EDT Imaging Radiology [facility] 2nd Floor, [place] [address] [place] [address] 05/15/2024 1:45 PM EDT Office Visit Gynecology/Obstetrics [facility] [address] [place] [address] Meenakshi Perry CRNP [address] [place] [address] Aristeo Non Stress Tests [place] [address] [address] [place] [id number] 05/22/2024 1:45 PM EDT Office Visit Gynecology/Obstetrics [facility] [address] [place] [address] Meenakshi Perry CRNP [address] [place] [address] Aristeo, Non Stress Tests [facility] [address] [place] [address] Health Maintenance Due Date Last Done Comments Depression Screening 11/14/2017 11/14/2016 HPV/Co-Test 2021 COVID-19 Vaccine (2022-24 season) 2023 05/26/2021, 05/05/2021 Influenza Vaccine (FLU [...] antepartum documented in this encounter Care Teams Gravel Wheeler Relationship Specialty Start Date End Date Mehnaz Capone DO [address] [place] [address] PCP - General Family Medicine 03/02/16 documented as of this encounter
--- OUTSIDE RECORDS SUMMARY | 2024-05-31 03:29 | External Medical Summary | Summary of Care ---
Author Name Unknown Organization [facility] Address [address] [facility] [address] Phone [phone] Care Team Providers Care Telephone Order Supervisor Name Role Phone Mehnaz Capone DO Primary Care Provider + [phone] Reason for Referral * Evaluate & Treat - Unlimited Visits (Within 10 days (routine)) Specialty Diagnoses / Procedures Referred By Jamal reyes Referred To Contact Pediatric Hematology/Oncology Suraj Anderson CRNP [address] [place] [address] Referral ID Status Reason Start Date Expiration Date V isits Requested Visits Authorized Specialty Services Required Question Answer Referral Priority Within 10 days (routine) Where should this appointment be scheduled? [facility] * Evaluate & Treat - Unlimited Visits (Within 10 days (routine)) - Authorized Specialty Diagnoses / Procedures Referred By Jamal reyes Referred To Contact Stained [employer] [facility] / Nutrition Services Diagnoses Diet controlled gestational diabetes mellitus (GDM) in third trimester Suraj Anderson CRNP [address] [address] Referral ID Status Reason Start Date Expiration Date Visits Requested Visits Authorized [id number] Authorized Specialty Services Required 03/11/2024 [id number] Question Answer Is the patient ? Yes Referral Priority Within 10 days (routine) Where should this appointment be scheduled? [facility] Comments This referral is for Diabetes Self-Management Training (DSMT) by a recognized [place] [employer] Association (ADA) nutrition educator: Nurse (RN), Registered Dietitian Sales Order Processor (RDN), and/or Diabetes Medical Nutrition Therapy (MNT) Management (dietitian only). Diabetes educators are responsible for assessing the participant's diabetes education needs, and providing diabetes self-management training in accordance with the standards set by the ADA for DSMT. Any adjustment in diabetes therapy will be made within the guidelines of standards of practice and [facility] approved policies and procedures. I understand that the nutrition educator will keep me informed. Areas of Education: Pathophysiology Nutrition Physical Activity Medications Monitoring Acute Complications Chronic Complications Psychosocial Management Promote Health/Behavior Change Participant will be offered 1:1 education training if there is a lack of classes available within 2 months. Providers can also order 1:1 training if indicated for participant for the following reasons: 1:1 Training for Insulin Initiation Participant Inappropriate for Class Setting By my electronic signature, I understand that my patient will be offered the comprehensive ADA content area above unless deemed not appropriate of I specify otherwise here: * Evaluate & Treat - Unlimited Visits (Within 10 days (routine)) - Authorized Specialty Diagnoses / Procedures Referred By Jamal reyes Referred To Contact Obstetrics/Gynecology / Maternal Medicine Diagnoses Diet controlled gestational diabetes mellitus (GDM) in third trimester Obesity in , antepartum Suraj Anderson CRNP [address] [place] [address] Referral ID Status Reason Start Date Expiration Date Visits Requested Visits Authorized [id number] Authorized Specialty Services Required 03/11/[phone] Question Answer Referral Priority Within 10 days (routine) Has the patient had a viability scan? Yes Date performed 11/09/2023 Location performed Radiology Reason for referral Diabetes Diabetes type Gestational Where should this appointment be scheduled? [facility] Comments /Para: LMP: No LMP recorded (lmp unknown). Patient is . DARIO: 05/28/2024, by Ultrasound Pre-Gravid BMI: 35.29 Reason for Visit * Reason Onset Date Comments Test Results 03/11/2024 Encounter Details Date Type Department Care Team (Late st Contact Info) Description 03/11/2024 Telephone Gynecology/Obstetrics Otilia Alberts [address] [place] [address] [place], ZAINAB Cline [address] [place] [address] Test Results Allergies No known active allergiesdocumented as of this encounter (statuses as of 03/11/2024) Medications Medication Sig Dispensed Refills Start Date [...] 4x/day 500 Strip 2 03/11/2024 Active OneTouch Ultra Test In Vitro Strip (Glucose Blood)Indications: Diet controlled gestational diabetes mellitus (GDM) in third trimester Use as directed, check blood sugar 4x/day 500 Strip 2 03/11/2024 03/11/2024 Discontinued documented as of this encounter (statuses as of 03/11/2024) Active Problems Problem Noted Date Diagnosed Date Diet controlled gestational diabetes mellitus (GDM) in third trimester 03/11/2024 Antepartum anemia complicating 024 Overview: Hgb 10.8 at 28 wks, blood mgmt referral placed Obesity in , antepartum 02/09/2024 Overview: Class 2 Growth q4 weeks, weekly NSTs 37 wks Encounter for supervision of other normal , unspecified trimester 11/09/2023 Dermatitis due to plant 03/30/2016 Estimated Date of Delivery Comme nts Yes 05/28/2024 Based on Ultraso und documented as of this encounter (statuses as of 03/11/2024) Resolved Problems Problem Noted Date Diagnosed Date Resolved Date History of gestational diabe meir in prior , currently 11/09/2023 03/11/2024 Overview: Early 3 hr glucose test - passed Iron deficiency anemia 06/15/202210/18 Overview: Repeat cbc 32-33 weeks Supervision of high-risk pre gnancy, unspecified trimester 03/07/2022 10/18/2022 Overview: GDM diagnosed at 13 weeks by abnormal 3 hour GTT. Hemoglobin A1c WNL. Patient has history of PCOS. Glucometer and testing supplies ordered to patient's preferred pharmacy. Will begin testing fasting and 1 hour postprandial blood sugars and report weekly via [employer]. Nutrition consult is scheduled for 03/18. Hemoglobin AIC Results: Lab Results Component Value Date/Time HEMOGLOBIN A1C - KalionER 5.4 02/28/2022 09:18 AM Results for AVI [...] & Plan: Normal early second trimester ultrasound. Diet controlled gestational diabetes mellitus (GDM), antepartum [...] as of this encounter (statuses as of 03/11/2024) Immunizations Name Administration Dates Next Due COVID-19 mRNA, LNP-s, No Pre serve, 2-Dose Series (Pfizer) 05/26/2021,05/05/2021 DTaP Dipth/Tet/Acell Pertussis (Infanrix), Peds 05/06/1996,09/21/1992,03/02/1992,12/02,1991 HIB PRP-T, 4 Dose, PF, IM (Hiberix) 09/11,03/02/1992,1991,10/07 Hepatitis B, 0-19 yrs 07/02/1997,02/06/1997,12/12 MMR - [...] of Binge Drinking Not on file 01/10 [place] Depression Scale Answer Date Recorded [place] Depression Scale Total 0 11/09/2023 The thought [...] as of this encounter Miscellaneous Notes * Addendum Note - Suraj Anderson CRNP - 03/11/2024 3:15 PM EDT Addended by: SURAJ ANDERSON on: 03/11/2024 03:15 PM Modules accepted: Orders * Telephone Encounter - Suraj Anderson CRNP - 03/11/2024 3:13 PM EDT Rx sent, referrals placed. ZAINAB Schuster * Telephone Encounter - Elin Guzman LPN - 03/11/2024 3:05 PM EDT Patient has device from previous so only needs strips and lancets. Agreeable to MFM and blood management referrals. * Telephone Encounter - Marge Shanks RN - 03/11/2024 2:41 PM EDT Attempt to call patient. No answer, LVM to return call. * Telephone Encounter - Suraj Anderson CRNP - 03/11/2024 1:34 PM EDT Additionally - she is anemic with hemoglobin <11, recommend iron infusions. Will send a referralfor blood mgmt. ZAINAB Schuster * Telephone Encounter - Suraj Anderson CRNP - 03/11/2024 1:23 PM EDT Meets criteria for GDM. Will need to start checking blood sugars QID and report to [facility] (sending a referral). Fasting goal (8-10 hrs overnight) is <95; 1 hr after each meal with goal <140. Recommend meeting with outreach educator for nutrition. MFM will request an u/s with them; follow up imaging can likely be done locally. Please confirm pharmacy and re-route to me. ZAINAB Schuster documented in this encounter Plan of Treatment Upcoming Encounters Date Type Department Care Team (Late st Contact Info) Description 03/28/2024 4:30 PM EDT Office Visit Gynecology/Obstetrics [facility] [address] [place] [address] Daina Momin PA-C [address] [place] [address] 04/11/2024 3:30 PM EDT Imaging Radiology [facility] 2nd [facility] [address] [place] [address] 04/11/2024 4:15 PM EDT Office Visit Gynecology/Obstetrics [facility] [address] [place] [address] Rica Hemphill MD [address] [place] [address] [place] [address] Scheduled Orders Name Type Priority Associated Diagnoses Orde r Schedule [facility] US MATERNAL 1ST FETUS Medical Imaging Routine Diet controlled gestational diabetes mellitus (GDM) in third trimester Other specified related conditions, third trimester Obesity in , antepartum Expected: 03/11/2024 (Approximate), Expires: 04/11/2025 Scheduled Referrals Name Type Priority Associated Diagnoses Orde r Schedule MATERNAL MEDICINE REFERRAL OP Referral Within 10 days (routine) Diet controlled gestational diabetes mellitus (GDM) in third trimester Obesity in , antepartum Ordered: 03/11/2024 DIABETES MANAGEMENT EDUCATION (ADA) REFERRAL Referral Within 10 days (routine) Diet controlled gestational diabetes mellitus (GDM) in third trimester Ordered: 03/11/2024 BLOOD MANAGEMENT REFERRAL Referral Within 10 days (routine) Antepartum anemia complicating Ordered: 03/11/2024 Health Maintenance Due Date Last Done Comments Depression Screening 11/14/2017 11/14/2016 HPV/Co-Test 2021 COVID-19 Vaccine ( season) 2023 05/26/2021, 05/05/2021 Influenza Vaccine (FLU shot) (#1) 2024 Cervical Cancer Screening 02/22/2025 Pap Smear 02/22/2025 02/22/2022, 01/10, 11/11/2015, Additional history exists DTaP,Tdap,and Td Vaccines (8 - Td or Tdap) 06/27/2032 06/27/2022, 03/24/2006, 05/06/1996, Additional history exists Hepatitis B Completed 07/02/1997, 01/10, 01/08/1997 MENINGOCOCCAL (MENACTRA/MENVEO) Completed 08/10/2007 GARDASIL-HPV IMMUNIZATION SERIES Aged Out No longer eligible based on [...] diabetes mellitus (GDM) in third trimester- Primary Antepartum anemia complicating Anemia, antepartum Other specified related conditions, third trimester Obesity in , antepartum Obesity complicating , childbirth, or the puerperium, antepartum condition or complication documented in this encounter Care Teams Telephone Order Supervisor Relationship Specialty Start Date End Date Mehnaz Capone DO [address] [place] [address] PCP - General Family Medicine 03/02/16 documented as of this encounter
--- OUTSIDE RECORDS SUMMARY | 2024-05-31 03:29 | External Medical Summary | Summary of Care ---
Author Name Unknown Organization [facility] Address [address] [place] [address] Phone [phone] Care Team Providers Care Hogshead Salvage Name Role Phone Mehnaz Capone DO Primary Care Provider [phone] Reason for Visit * Reason Comments Ultrasound Encounter Details Date Type Department Care Team (Late st Contact Info) Description 03/21/2024 9:30 AM EDT Office Visit Unclaimed Property Officer Obstetrics Maternal Medicine, [place] [address] [place] [address] Jf Polanco DO [address] [place] [address] Diet controlled gestational diabetes mellitus (GDM) in third trimester*; , supervision, high-risk, third trimester; Obesity in , antepartum; Class 2 obesity without serious comorbidity with body mass index (BMI) of 35.0 to 35.9 in adult, unspecified obesity type; 30 weeks gestation of ; Other specified related conditions, unspecified trimester Allergies No known active allergiesdocumented as of this encounter (statuses as of 03/21/2024) Medications Medication Sig Dispensed Refills Start Date [...] sugar 4x/day 500 Strip 2 03/11/2024 Active [employer]end[employer]Touch Verio w/Device KitIndications:Diet controlled gestational diabetes mellitus (GDM) in third trimester Use as directed. For testing blood sugars. 1 Kit 03/18/2024 Active documented as of this encounter (statuses as of 03/21/2024) Active Problems Problem Noted Date Diagnosed Date Class 2 obesity without seri ous comorbidity with body mass index (BMI) of 35.0 to 35.9 in adult 03/21/2024 Last Assessment & Plan: -Growth today WNL -Pt recommended to transfer growths ultrasound surveillance to [facility] in [facility] if able -Otherwise, will ctn Radiology scans and referral back to [facility] if indicated -Will also need surveillance [...] - [facility] 94 03/11/2024 09:17 AM 03/13/24: [facility] ADAPT consult complete. Enrolled in Current Health. Instructions provided to report blood sugars each week for [facility] review. 03/19/20243135-IUP-agpvptjw 4 days. Elevated fasting blood sugars. Advised to watch diet, eat bedtime snack, and avoid fasting longer than 8 to 10 hours. Will review again next week, and if persists, will schedule for follow up ADAPT with maternal medicine nurse practitioner. Last Assessment & Plan: -Ctn to work [...] postprandial blood sugars and report weekly via [employer]. Nutrition consult is scheduled for 03/18. Hemoglobin [...] as of this encounter (statuses as of 03/21/2024) Resolved Problems Problem Noted Date Diagnosed Date [...] assisted reproductive technology 02/22/2022 10/18/2022 Overview: Otf Castromello Last Assessment & Plan: DISCUSSION: 1. Assisted [...] as of this encounter (statuses as of 03/21/2024) Immunizations Name Administration Dates Next Due COVID-19 [...] of Binge Drinking Not on file 01/10 [place] Depression Scale Answer Date Recorded [place] Depression Scale Total 0 11/09/2023 The thought [...] as of this encounter Progress Notes * Sergey Samano MD - 03/21/2024 11:09 AM EDT MATERNAL MEDICINE VISIT Avi Giraldo, 33 year old is at 30w2d who presents to [facility] for an ultrasound and follow-up of her high risk . REVIEW OF SYSTEMS: nausea/vomitting: denies reports movement: yes abdominal pain/tenderness/cramping/contractions: no vaginal bleeding: no vaginal leaking of fluid: no PHYSICAL EXAM: General: pleasant, alert and oriented Neuro: mood and affect normal, alert and oriented, no acute distress She is being seen today by Maternal- Medicine for the following reasons: Problem List Items Addressed This Visit Endocrine/Metabolic Diet controlled gestational diabetes mellitus (GDM) in third trimester - Primary -Ctn to work with ADAPT Digestive Obesity in , antepartum Class 2 obesity without serious comorbidity with body mass index (BMI) of 35.0 to 35.9 in adult -Growth today WNL -Pt recommended to transfer growths ultrasound surveillance to [facility] in [facility] if able -Otherwise, will ctn Radiology scans and referral back to [facility] if indicated -Will also need surveillance at 37 weeks Other , supervision, high-risk, third trimester Ultrasound Report Summary anatomy appears normal for visualized structures. size is normal for gestational age, EFW at 27 %, AC 31%. Amniotic Fluid is normal, GLENN = 8 cm. The ultrasound report for today's visit will be scanned into the [facility] records. Please see separate report for details. We reviewed today's ultrasound findings. (For full report, please refer to ultrasound report provided separately). Ms. Giraldo's questions were answered to her satisfaction. Cell free DNA screening: declined RECOMMENDATIONS: Continue serial growth ultrasounds Follow with ADAPT glucose monitoring Weekly surveillance at 37 weeks or sooner if otherwise indicated Thank you for allowing us to participate in the care of this patient. Please call with any questions. The patient's history, examination and plan of care were discussed with Dr. Polanco, who saw her with me. Sergey Samano MD 03/21/2024 11:12 AM I have discussed the patient's management with the medical trainee and agree with the note. Please refer to the documented findings and plan of care. This patient's visit today consisted of an evaluation. I was present and confirmed the findings of the history and exam. Jf Polanco DO documented in this encounter Miscellaneous Notes * Assessment & Plan Note - Sergey Samano MD - 03/21/2024 11:09 AM EDTAssociated Problem(s): Class 2 obesity without serious comorbidity with body mass index (BMI) of 35.0 to 35.9 in adult -Growth today WNL -Pt recommended to transfer growths ultrasound surveillance to [facility] in [facility] if able -Otherwise, will ctn Radiology scans and referral back to [facility] if indicated -Will also need surveillance at 37 weeks * Assessment & Plan Note - Sergey Samano MD - 03/21/2024 11:08 AM EDTAssociated Problem(s): Diet controlled gestational diabetes mellitus (GDM) in third trimester -Ctn to work with ADAPT documented in this encounter Plan of Treatment Upcoming Encounters Date Type Department Care Team (Late st Contact Info) Description 03/28/2024 10:00 AM EDT Pharmacy Pharmacy, [address] [phone] Clinic, [address] [address] 03/28/2024 4:30 PM EDT Office Visit Gynecology/Obstetrics [facility] [address] [facility] [place] [address] Daina Momin PA-C [address] [place] [address] 04/11/2024 3:30 PM EDT Imaging Radiology [facility] 2nd [facility] [address] [facility] [place] [address] 04/11/2024 4:15 PM EDT Office Visit Gynecology/Obstetrics [facility] [address] [facility] [place] [address] Rica Hemphill MD [address] [facility] [place] [address] 04/18/2024 3:30 PM EDT Office Visit Unclaimed Property Officer Obstetrics Maternal Medicine, [address] [address] Jf Polanco DO [address] [place] [address] 04/18/2024 3:30 PM EDT Imaging Radiology [facility], [place] [address] [place] [address] Scheduled Orders Name Type Priority Associated Diagnoses Orde r Schedule M PREG FOLLOW UP EACH FETUS Medical Imaging Routine Diet controlled gestational diabetes mellitus (GDM) in third trimester , supervision, high-risk, third trimester Obesity in , antepartum Class 2 obesity without serious comorbidity with body mass index (BMI) of 35.0 to 35.9 in adult, unspecified obesity type Other specified related conditions, unspecified trimester 6 Occurrences starting 03/21/2024 until 05/28/2024 Health Maintenance Due Date Last Done Comments [...] diabetes mellitus (GDM) in third trimester- Primary , supervision, high-risk, third trimester Class 2 obesity without serious comorbidity with body mass index (BMI) of 35.0 to 35.9 in adult, unspecified obesity type 30 weeks gestation of state, incidental Other specified related conditions, unspecified trimester documented in this encounter Care Teams H[employer]head Salvage Relationship Specialty Start Date End Date Mehnaz Capone DO [address] [place] [address] PCP - General Family Medicine 03/02/16 documented as of this encounter
--- OUTSIDE RECORDS SUMMARY | 2024-05-31 03:29 | External Medical Summary | Summary of Care ---
Author Name Unknown Organization [facility] Address [address] [place] [facility] [place] [place] [address] Phone [phone] Care Team Providers Care Hemodialysis Lab Technician Name Role Phone Mehnaz Capone DO Primary Care Provider [phone] Reason for Referral * Evaluate & Treat - Unlimited Visits (Within 10 days (routine)) - Authorized Specialty Diagnoses / Procedures Referred By Jamal reyes Referred To Contact Pharmacist / Pharmacy Diagnoses WADE (iron deficiency anemia) Maggi Anderson CRNP [address] [place] [address] Referral ID Status Reason Start Date Expiration Date Visits Requested Visits Authorized [id number] Authorized Specialty Services Required 03/12/2024 09/08/2024 99 99 Question Answer Referral Priority Within 10 days (routine) Where should this appointment be scheduled? [facility] Referring Provider Role: Specialist Specialty: wound care center consultant Reason for Referral: Anemia Comments Pharmacist Medication Therapy Management: Iron deficiency anemia Melquiades Das RN Reason for Visit * Reason Onset Date Comments Blood Management Program 03/12/2024 Encounter Details Date Type Department Care Team (Late st Contact Info) Description 03/12/2024 Telephone Patient Blood Management, [place] [address] [place] [address] Maggi Anderson CRNP [address] [place] [address] Blood Management Program Allergies No known active allergiesdocumented as of this encounter (statuses as of 03/26/2024) Medications Medication Sig Dispensed Refills Start Date End Date Status 28-0.8 MG Oral Tablet Take by mouth. Active OneTouch Delica Lancets 33GIndications:Diet controlled gestational diabetes mellitus (GDM) in third trimester Use as directed, check blood sugar 4x/day 100 Each 6 03/11/2024 Active OneTouch Verio In Vitro Strip (Glucose Blood)Indications:Diet controlled gestational diabetes mellitus (GDM) in third trimester Check blood sugar 4x/day 500 Strip 2 03/11/2024 Active documented as of this encounter (statuses as of 03/26/2024) Active Problems Problem Noted Date Diagnosed Date Class 2 obesity without seri ous comorbidity with body mass index (BMI) of 35.0 to 35.9 in adult 03/21/2024 Last Assessment & Plan: -Growth today WNL -Pt recommended to transfer growths ultrasound surveillance to [facility] in [facility] if able -Otherwise, will ctn Radiology scans and referral back to [facility] if indicated -Will also need surveillance [...] - [facility] 94 03/11/2024 09:17 AM 03/13/24: [facility] ADAPT consult complete. Enrolled in Current Health. Instructions provided to report blood sugars each week for MFM review. 03/19/20247526-[id number]-txrhicyx 4 days. Elevated fasting blood sugars. Advised [...] postprandial blood sugars and report weekly via USB Promos. Nutrition consult is scheduled for 03/18. Hemoglobin AIC Results: Lab Results Component Value Date/Time HEMOGLOBIN A1C - [facility] 5.4 02/28/2022 09:18 AM Results for AVI [...] as of this encounter (statuses as of 03/26/2024) Resolved Problems Problem Noted Date Diagnosed Date [...] as of this encounter (statuses as of 03/26/2024) Immunizations Name Administration Dates Next Due COVID-19 [...] of Binge Drinking Not on file 01/10 [place] Depression Scale Answer Date Recorded [place] Depression Scale Total 0 11/09/2023 The thought [...] encounter Miscellaneous Notes * Telephone Encounter - Melquiades Das RN - 03/12/2024 9:11 AM EDT Recommend IV iron per OB MTM guidelines. Patient agreeable, prefers infusion at [facility]. documented in this encounter Plan of Treatment Upcoming Encounters Date Type Department Care Team (Late st Contact Info) Description 03/28/2024 1:00 PM EDT Hem/Onc Treatment Hematology/Oncology Treatment, [place] [address] [place] [address] Park, Chair 10 Hem Onc Scenery [address] [place] [address] 03/28/2024 4:30 PM EDT Office Visit Gynecology/Obstetrics [facility] [address] [place] [address] Daina Momin [facility]C [facility] [address] 04/04/2024 2:30 PM EDT Pharmacy Pharmacy, [address] [address] Clinic, [place] [address] [place] [address] 04/11/2024 3:30 PM EDT Imaging Radiology [facility] [place] [address] 04/11/2024 4:15 PM EDT Office Visit Gynecology/Obstetrics [address] [place] [address] Rica Hemphill MD [address] [place] [address] [place] [address] 04/18/2024 3:30 PM EDT Office Visit Manager Family Obstetrics Maternal Medicine, [place] [address] [place] [address] Jf Polanco DO [address] [place] [address] 04/18/2024 3:30 PM EDT Imaging Radiology [facility], [place] [address] [place] [address] Scheduled Referrals Name Type Priority Associated Diagnoses Orde r Schedule PHARMACIST MEDS THERAPY MGMT REFERRAL OP Referral Within 10 days (routine) WADE (iron deficiency anemia) Ordered: 03/12/2024 Health Maintenance Due Date Last Done Comments [...] as of this encounter Visit Diagnoses Diagnosis WADE (iron deficiency anemia)- Primary Iron deficiency anemia, unspecified documented in this encounter Care Teams Hemodialysis Lab Technician Relationship Specialty Start Date End Date Mehnaz Capone DO [address] [place] [facility] [place] [address] PCP - General Family Medicine 03/02/16 documented as of this encounter
--- OUTSIDE RECORDS SUMMARY | 2024-05-31 03:29 | External Medical Summary | Summary of Care ---
Author Name Unknown Organization [facility] Address [address] [facility] [place] [address] Phone [phone] Care Team Providers Care Insurance Claims Specialist Name Role Phone Mehnaz Capone DO Primary Care Provider [phone] Reason for Visit * Reason Onset Date Comments Medication Management 03/21/2024 InFed Encounter Details Date Type Department Care Team (Late st Contact Info) Description 03/21/2024 Telephone Hematology/Oncology Treatment, [place] [address] [place] [address] Back[place], ZAINAB Cline [address] [place] [address] Medication Management (InFed) Allergies No known active allergiesdocumented as of this encounter (statuses as of 03/22/2024) Medications Medication Sig Dispensed Refills Start Date [...] as of this encounter (statuses as of 03/22/2024) Active Problems Problem Noted Date Diagnosed Date Class 2 obesity without seri ous comorbidity with body mass index (BMI) of 35.0 to 35.9 in adult 03/21/2024 Last Assessment & Plan: -Growth today WNL -Pt recommended to transfer growths ultrasound surveillance to [facility] in [facility] if able -Otherwise, will ctn Radiology scans and referral back to [facility] if indicated -Will also need surveillance [...] - [facility] 94 03/11/2024 09:17 AM 03/13/24: [facility] ADAPT consult complete. Enrolled in Current Health. Instructions provided to report blood sugars each week for [facility] review. 03/19/[id number]-[id number] 4 days. Elevated fasting blood sugars. Advised [...] at 37 weeks. , supervision, high-risk, third [facility] er 11/09/2023 Iron deficiency anemia 06/15/2022 Overview: Repeat cbc 32-33 weeks Supervision of high risk in third [facility] 03/07/2022 Overview: GDM diagnosed at 13 weeks by abnormal 3 hour GTT. Hemoglobin A1c WNL. Patient has history of PCOS. Glucometer and testing supplies ordered to patient's preferred pharmacy. Will begin testing fasting and 1 hour postprandial blood sugars and report weekly via numberFire. Nutrition consult is scheduled for 03/18. Hemoglobin [...] as of this encounter (statuses as of 03/22/2024) Resolved Problems Problem Noted Date Diagnosed Date [...] as of this encounter (statuses as of 03/22/2024) Immunizations Name Administration Dates Next Due COVID-19 mRNA, LNP-s, No Pre serve, 2-Dose Series (Midokura) 05/26/2021,05/05/2021 Meningococcal Conjugate Vaccine (Menactra/Menveo ) 08/10/2007 [...] of Binge Drinking Not on file 01/10 [place] Depression Scale Answer Date Recorded [place] Depression Scale Total 0 11/09/2023 The thought [...] encounter Miscellaneous Notes * Telephone Encounter - Tsering Javier OSA - 03/22/2024 11:11 AM EDT Apt scheduled Pt made aware * Telephone Encounter - Noah Ferrer RN - 03/22/2024 9:23 AM EDT Plan signed. Scheduling- please call patient to schedule 3 hour apt "Infed rapid" ( ZAINAB Clark). Thanks. * Telephone Encounter - Maggi Momin LPN - 03/21/2024 9:08 AM EDT Order received for Vincenzo Hendrix plan built and routed to provider (p [phone]). No prior authorization required Awaiting provider signature before scheduling patient. documented in this encounter Plan of Treatment Upcoming Encounters Date Type Department Care Team (Late st Contact Info) Description 03/28/2024 10:00 AM EDT Pharmacy Pharmacy, [place] [address] [place] [address] Clinic, [facility] [address] [place] [address] 03/28/2024 1:00 PM EDT Hem/Onc Treatment Hematology/Oncology Treatment, [place] [address] [facility] [place] [phone] [place], Chair 10 Hem Onc Scenery [address] [place] [address] 03/28/2024 4:30 PM EDT Office Visit Gynecology/Obstetrics [facility] [address] [place] [address] Daina Momin PA-C 132 [facility] [place] [address] 04/11/2024 3:30 PM EDT Imaging Radiology [facility] 2nd [facility] [address] [place] [address] 04/11/2024 4:15 PM EDT Office Visit Gynecology/Obstetrics [facility] [address] [place] [address] Rica Hemphill MD [address] [facility] [place] [address] 04/18/2024 3:30 PM EDT Office Visit Inpatient Nursing Aide Obstetrics Maternal Medicine, [place] [address] [place] [address] Jf Polanco DO [address] [place] [address] 04/18/2024 3:30 PM EDT [facility] [address] [place] [address] Health Maintenance Due Date Last Done Comments Depression Screening 11/14/2017 11/14/2016 HPV/Co-Test 2021 COVID-19 Vaccine (3 - 2022-24 season) 2023 05/26/2021, 05/05/2021 Influenza Vaccine (FLU [...] filedocumented as of this encounter Care Teams Insurance Claims Specialist Relationship Specialty Start Date End Date Mehnaz Capone DO [address] [place] [address] PCP - General Family Medicine 03/02/16 documented as of this encounter
--- OUTSIDE RECORDS SUMMARY | 2024-05-31 03:29 | External Medical Summary | Summary of Care ---
Author Name Unknown Organization [facility] Address [address] [facility] [address] Phone [phone] Care Team Providers Care Ticket Dispenser Changer Name Role Phone Mehnaz Capone DO Primary Care Provider [phone] Reason for Referral * Evaluate & Treat - Unlimited Visits (Within 10 days (routine)) Specialty Diagnoses / Procedures Referred By Jamal reyes Referred To Contact Pediatric Hematology/Oncology Suraj Anderson CRNP [address] [place] [address] Referral ID Status Reason Start Date Expiration Date V isits Requested Visits Authorized Specialty Services Required Question Answer Referral Priority Within 10 days (routine) Where should this appointment be scheduled? [facility] * Evaluate & Treat - Unlimited Visits (Within 10 days (routine)) - Authorized Specialty Diagnoses / Procedures Referred By Jamal reyes Referred To Contact Enrollment Representative / Nutrition Services Diagnoses Diet controlled gestational diabetes mellitus (GDM) in third trimester Suraj Anderson CRNP [address] [place] [address] Referral ID Status Reason Start Date Expiration Date Visits Requested Visits Authorized [id number] Authorized Specialty Services Required 03/11/2024 999 999 Question Answer Is the patient ? Yes Referral Priority Within 10 days (routine) Where should this appointment be scheduled? [facility] Comments This referral is for Diabetes Self-Management Training (DSMT) by a recognized [place] [employer] (ADA) digital pre press operator: Nurse (RN), Registered Dietitian Char House Supervisor (RDN), and/or Diabetes Medical Nutrition Therapy (MNT) Management (dietitian only). Diabetes educators are responsible for assessing the participant's diabetes education needs, and providing diabetes self-management training in accordance with the standards set by the ADA for DSMT. Any adjustment in diabetes therapy will be made within the guidelines of standards of practice and [facility] approved policies and procedures. I understand that the digital pre press operator will keep me informed. Areas of Education: [...] Anderson CRNP [address] [place] [address] Referral ID Status Reason Start Date Expiration Date Visits Requested Visits Authorized [id number] Authorized Specialty Services Required 03/11/2024 999 999 [...] Gynecology/Obstetrics Otilia Alberts [address] [place] [address] Back[place], ZAINAB Cline [address] [place] [address] Test Results Allergies No known active allergiesdocumented [...] postprandial blood sugars and report weekly via MeBeam. Nutrition consult is scheduled for 03/18. Hemoglobin AIC Results: Lab Results Component Value Date/Time HEMOGLOBIN A1C - [facility] 5.4 02/28/2022 09:18 AM Results for AVI [...] of Binge Drinking Not on file 01/10 [place] Depression Scale Answer Date Recorded [place] Depression Scale Total 0 11/09/2023 The [...] checking blood sugars QID and report to [facility] (sending a referral). Fasting goal (8-10 hrs overnight) is <95; 1 hr after each meal with goal <140. Recommend meeting with academic registrar for nutrition. MFM will request an u/s with them; follow up imaging can likely be done locally. Please confirm pharmacy and re-route to me. ZAINAB Schuster documented in this encounter Plan of Treatment Upcoming Encounters Date Type Department Care Team (Late st Contact Info) Description 03/28/2024 4:30 PM EDT Office Visit Gynecology/Obstetrics [facility] [address] [place] [address] Daina Momin PA-C [address] [place] [address] 04/11/2024 3:30 PM EDT Imaging Radiology [facility] 2nd [facility] [address] [place] [address] 04/11/2024 4:15 PM EDT Office Visit Gynecology/Obstetrics [facility] [address] [place] [address] Rica Hemphill MD [address] [place] [address] [place] [address] Scheduled Orders Name Type Priority Associated Diagnoses Orde r Schedule [facility] US MATERNAL 1ST FETUS Medical Imaging Routine [...] complication documented in this encounter Care Teams Ticket Dispenser Changer Relationship Specialty Start Date End Date Mehnaz Capone DO [address] [place] [address] PCP - General Family Medicine 03/02/16 documented as of this encounter
--- OUTSIDE RECORDS SUMMARY | 2024-05-31 03:29 | External Medical Summary | Summary of Care ---
Author Name Unknown Organization [facility] Address [address] [facility] [place] [address] Phone [phone] Care Team Providers Care Boarding House Manager Name Role Phone Mehnaz Capone DO Primary Care Provider Encounter Details Date Type Department Care Team (Late st Contact Info) Description 03/20/2024 Orders Only Gynecology/Obstetrics [facility] [address] [place] [address] Maggi Anderson CRNP [address] [place] [address] Iron deficiency anemia, unspecified iron deficiency anemia type* Allergies No known active allergiesdocumented as of this encounter (statuses as of 03/20/2024) Medications Medication Sig Dispensed Refills Start Date [...] as of this encounter (statuses as of 03/20/2024) Active Problems Problem Noted Date Diagnosed Date with 29 completed weeks gestation 11/2023 Diet [...] blood sugars each week for MFM review. 03/19/20242458-JJN-zpzcevlt 4 days. Elevated fasting blood sugars. Advised to watch diet, eat bedtime snack, and avoid fasting longer than 8 to 10 hours. Will review again next week, and if persists, will schedule for follow up ADAPT with maternal medicine nurse practitioner. Last Assessment & Plan: CONSIDERATIONS: Reviewed etiology and risks associated with gestational diabetes mellitus (GDM), including risks to , fetus, and maternal progression to Type 2 DM. Instructed on proper use of glucometer; supplies ordered, if indicated. Advised that life-long screening for diabetes is recommended every 1-3 years. RECOMMENDATIONS: Recommend monitoring blood sugars with daily fasting blood sugar (maintained at less than or equal to 95) and 1 hour postprandial measurements (maintained at less than or equal to 140). Medications should be adjusted to maintain these target values. Report levels to MFM (Maternal- Medicine) weekly. Recommend nutrition consult with RDN (Registered Dietitian Camera Repairer). Lifestyle changes are also indicated including optimizing gestational weight gain and physical activity of 30 minutes per day, if not otherwise contraindicated in . Insulin is preferred if medications are indicated to optimize euglycemia. Metformin (preferred over glyburide) may also be used in some circumstances. Reviewed the risks and benefits of each. Recommend ultrasound, surveillance and delivery as follows: A1GDM, delivery should be accomplished by 41w0d. A2GDM, recommend growth assessment with MFM every 4 weeks, initiate surveillance at 32 weeks and continue until delivery at 39 weeks. Recommend intrapartum monitoring every 1-2 hours (A2GDM) or every 4 hours (A1GDM) and treat with insulin if indicated. Recommend 2-hour glucose tolerance testing with 75-gram glucose load 6-8 weeks . Antepartum anemia complicating 024 Overview: Hgb 10.8 [...] at 37 weeks. Encounter for supervision of other normal , unspecified trimester 11/09/2023 Iron deficiency anemia 06/15/2022 Overview: Repeat cbc 32-33 weeks Supervision of high risk in third [facility] 03/07/2022 Overview: GDM diagnosed at 13 weeks by abnormal 3 hour GTT. Hemoglobin A1c WNL. Patient has history of PCOS. Glucometer and testing supplies ordered to patient's preferred pharmacy. Will begin testing fasting and 1 hour postprandial blood sugars and report weekly via Altacor. Nutrition consult is scheduled for 03/18. Hemoglobin AIC Results: Lab Results Component Value Date/Time HEMOGLOBIN A1C - [facility] 5.4 02/28/2022 09:18 AM Results for AVI [...] as of this encounter (statuses as of 03/20/2024) Resolved Problems Problem Noted Date Diagnosed Date [...] as of this encounter (statuses as of 03/20/2024) Immunizations Name Administration Dates Next Due COVID-19 mRNA, LNP-s, No Pre serve, 2-Dose Series (Paybook) 05/26/2021,05/05/2021 Meningococcal Conjugate Vaccine (Menactra/Menveo ) 08/10/2007 [...] of Binge Drinking Not on file 01/10 [place] Depression Scale Answer Date Recorded [place] Depression Scale Total 0 11/09/2023 The thought [...] Description 03/21/2024 9:30 AM EDT Office Visit [facility] Usher Obstetrics Maternal Medicine, [address] [address] Jf Polanco, [address] [place] [facility] [address] 03/21/2024 9:30 AM EDT Imaging Radiology [facility] [place], [place] [address] [place] [address] 03/28/2024 10:00 AM EDT Pharmacy Pharmacy, [place] [address] [place], [place] [id number] [place] [address] [place] [address] 03/28/2024 4:30 PM EDT Office Visit Gynecology/Obstetrics [facility] 132 [facility] [place] [address] Daina Momin PA-C 132 [facility] [place] [address] 04/11/2024 3:30 PM EDT [facility] [address] [facility] [place] [address] 04/11/2024 4:15 PM EDT Office Visit Gynecology/Obstetrics [facility] [address] [facility] [place] [address] Rica Hemphill MD [address] [place] [place] [address] Health Maintenance Due Date Last Done Comments Depression Screening 11/14/2017 11/14/2016 HPV/Co-Test 2021 COVID-19 Vaccine ( season) 2023 05/26/2021, 05/05/2021 Influenza Vaccine (FLU shot) (#1) 2024 Cervical Cancer Screening 02/22/2025 Pap Smear 02/22/2025 02/22/2022, 05/09/2018, 11/11/2015, Additional history exists DTaP,Tdap,and Td Vaccines [...] Primary documented in this encounter Care Teams Boarding House Manager Relationship Specialty Start Date End Date Mehnaz Capone DO [address] [place] [address] PCP - General Family Medicine 03/02/16 documented as of this encounter
--- OUTSIDE RECORDS SUMMARY | 2024-05-31 03:29 | External Medical Summary | Summary of Care ---
Author Name Unknown Organization [facility] Address [address] [facility] [address] Phone [phone] Care Team Providers Care Energy Efficiency Specialist Name Role Phone Mehnaz Capone DO Primary Care Provider [phone] Reason for Visit * Reason Comments Outpatient Testing Encounter Details Date Type Department Care Team (Late st Contact Info) Description 03/11/2024 9:20 AM EDT Laboratory [facility], [facility] [id number] [facility] 132 [place] [address] Encounter for supervision of other normal , unspecified trimester; History of gestational diabetes in prior , currently Allergies No known active allergiesdocumented as of this encounter (statuses as of 03/11/2024) Medications Medication Sig Dispensed Refills Start Date End Date Status 28-0.8 MG Oral Tablet Take by mouth. Active documented as of this encounter (statuses as of 03/11/2024) Active Problems Problem Noted Date Diagnosed Date Obesity in , antepartum 02/09/2024 Overview: Class 2 Growth q4 weeks, weekly NSTs 37 wks Encounter for supervision of other normal , unspecified trimester 11/09/2023 History of gestational diabe meir in prior , currently 11/09/2023 Overview: Early 3 hr glucose test - passed Dermatitis due to plant 03/30/2016 Estimated Date of Delivery Comme nts Yes 05/28/2024 Based on Ultraso und documented as of this encounter (statuses as of 03/11/2024) Resolved Problems Problem Noted Date Diagnosed Date Resolved Date Iron deficiency anemia 06/15/202210/18 Overview: Repeat cbc 32-33 weeks Supervision of high-risk pre gnancy, unspecified trimester 03/07/2022 10/18/2022 Overview: GDM diagnosed at 13 weeks by abnormal 3 hour GTT. Hemoglobin A1c WNL. Patient has history of PCOS. Glucometer and testing supplies ordered to patient's preferred pharmacy. Will begin testing fasting and 1 hour postprandial blood sugars and report weekly via [employer]. Nutrition consult is scheduled for 03/18. Hemoglobin AIC Results: Lab Results Component Value Date/Time HEMOGLOBIN A1C - [facility] 5.4 02/28/2022 09:18 AM Results for AVI [...] mRNA, LNP-s, No Pre serve, 2-Dose Series ([employer]) 05/26/2021,05/05/2021 Meningococcal Conjugate Vaccine (Menactra/Menveo ) 08/10/2007 [...] of Binge Drinking Not on file 01/10 [place] Depression Scale Answer Date Recorded [place] Depression Scale Total 0 11/09/2023 The thought [...] 03/28/2024 4:30 PM EDT Office Visit Gynecology/Obstetrics [address] [place] [address] Daina Momin PA-C [address] [place] [address] 04/11/2024 3:30 PM EDT Imaging Radiology [facility] 2nd [facility] [place] [address] [place] [address] 04/11/2024 4:15 PM EDT Office Visit Gynecology/Obstetrics [facility] [address] [place] [address] Rica Hemphill MD [address] [place] [address] [place] [address] Pending Results Name Type Priority Associated Diagnoses Date /Time GESTATIONAL GLUCOSE TOLERANCE, 3 HOUR Lab Routine Encounter for supervision of other normal , unspecified trimester History of gestational diabetes in prior , currently 03/11/2024 9:17 AM EDT SYPHILIS ANTIBODY SCREEN WITH REFLEX TO RPR Lab Routine Encounter for supervision of other normal , unspecified trimester 03/11/2024 9:17 AM EDT CBC WITH WBC DIFFERENTIAL AND ANEMIA REFLEX WORKUP Lab Routine Encounter for supervision of other normal , unspecified trimester 03/11/2024 9:17 AM EDT SYPHILIS ANTIBODY SCREEN Lab Routine Encounter for supervision of other normal , unspecified trimester 03/11/2024 9:17 AM EDT ANEMIA CBC Lab Routine Encounter for supervision of other normal , unspecified trimester 03/11/2024 9:17 AM EDT DIFFERENTIAL, AUTOMATED Lab Routine Encounter for supervision of other normal , unspecified trimester 03/11/2024 9:17 AM EDT ANEMIA REFLEX CHEMISTRY HOLD Lab Routine Encounter for supervision of other normal , unspecified trimester 03/11/2024 9:17 AM EDT 100-G GESTATIONAL GLUCOSE, 3 HOUR Lab Routine Encounter for supervision of other normal , unspecified trimester History of gestational diabetes in prior , currently 03/11/2024 12:22 PM EDT Health Maintenance Due Date Last [...] Not on filedocumented as of this encounter Procedures Procedure Name Priority Date/Time Associated Diagnosis Comments 100-G GESTATIONAL GLUCOSE, 2 HOUR Routine 03/11/2024 11:25 AM EDT Encounter for supervision of other normal , unspecified trimester History of gestational diabetes in prior , currently 100-G GESTATIONAL GLUCOSE, 1 HOUR Routine 03/11/2024 10:20 AM EDT Encounter for supervision of other normal , unspecified trimester History of gestational diabetes in prior , currently 100-G GESTATIONAL GLUCOSE, FASTING Routine 03/11/2024 9:17 AM EDT Encounter for supervision of other normal , unspecified trimester History of gestational diabetes in prior , currently documented in this encounter Results * (ABNORMAL) 100-G GESTATIONAL GLUCOSE, 2 HOUR (03/11/2024 11:25 AM EDT) 100-g Gestational Glucose, 2 Hour 155(H) 70 - 154 mg/dL 03/11/2024 12:28 PM EDT [facility] 57-10 Blood Venous blood specimen / Unknown Venipuncture / Unknown 03/11/2024 11:25 AM EDT 03/11/2024 11:25 AM EDT [facility] [place] 57-10 [address] [place] [address] * (ABNORMAL) 100-G GESTATIONAL GLUCOSE, 1 HOUR (03/11/2024 10:20 AM EDT) 100-g Gestational Glucose, 1 Hour 193(H) 70 - 179 mg/dL 03/11/2024 11:05 AM EDT [facility] [place] [facility] 57-10 Blood Venous blood specimen / Unknown Venipuncture / Unknown 03/11/2024 10:20 AM EDT 03/11/2024 10:20 AM EDT [facility] BLOOD [facility] R[facility]LES Performing Organization Address City/[facility]/ZIP Co de Phone Number [facility] [place] 57-10 [address] [place] [address] * 100-G GESTATIONAL GLUCOSE, FASTING (03/11/2024 9:17 AM EDT) 100-g Gestational Glucose, Fasting 94 70 - 94 mg/dL 03/11/2024 9:58 AM EDT [facility] [place] 57-10 Blood Venous blood specimen / Unknown Venipuncture / Unknown 03/11/2024 9:17 AM EDT 03/11/2024 9:17 AM EDT Narrative [facility] [place] 57-10 - 03/11/2024 9:58 AM EDT Based on ACOG guideline, gestational diabetes mellitus is diagnosed when any of the following is met: Fasting is greater than or equal to 95 mg/dL 1 hour is greater than or equal to 180 mg/dL 2 hour is greater than or equal to 155 mg/dL 3 hour is greater than or equal to 140 mg/dL [facility]LO[facility] 57-10 [address] [place] [address] documented in this encounter Visit Diagnoses Diagnosis Encounter for supervision of other normal , unspecified trimester History of gestational diabetes in prior , currently with other poor obstetric history documented in this encounter Care Teams Energy Efficiency Specialist Relationship Specialty Start Date End Date Mehnaz Capone DO [address] [place] [address] PCP - General Family Medicine 03/02/16 documented as of this encounter
--- OUTSIDE RECORDS SUMMARY | 2024-05-31 03:29 | External Medical Summary | Summary of Care ---
Author Name Unknown Organization [facility] Address [address] [facility] [place] [address] Phone [phone] Care Team Providers Care Carcass Washer Name Role Phone Mehnaz Capone DO Primary Care Provider [phone] Reason for Visit * Reason Comments IV Therapy Infed. Encounter Details Date Type Department Care Team (Latest Contact Info) Description 03/28/2024 1:00 PM EDT Hem/Onc Treatment Hematology/Oncology Treatment, [address] [address] Sofya, Chair 10 Hem Onc [address] [address] Iron deficiency anemia, unspecified iron deficiency anemia type* Allergies No known active allergiesdocumented as of this encounter (statuses as of 03/28/2024) Medications Medication Sig Dispensed Refills Start Date [...] as of this encounter (statuses as of 03/28/2024) Active Problems Problem Noted Date Diagnosed Date Class 2 obesity without seri ous comorbidity with body mass index (BMI) of 35.0 to 35.9 in adult 03/21/2024 Last Assessment & Plan: -Growth today WNL -Pt recommended to transfer growths ultrasound surveillance to [facility] in [facility] if able -Otherwise, will ctn Radiology scans and referral back to [facility] if indicated -Will also need [...] - [facility] 94 03/11/2024 09:17 AM 03/13/24: [facility] ADAPT consult complete. Enrolled in Current Health. Instructions provided to report blood sugars each week for [facility] review. 03/19/[id number] 4 days. Elevated fasting blood sugars. Advised to watch diet, eat bedtime snack, and avoid fasting longer than 8 to 10 hours. Will review again next week, and if persists, will schedule for follow up ADAPT with maternal medicine nurse practitioner. 03/27/[id number] stable (< 50% elevated) Last Assessment & Plan: -Ctn to work [...] at 37 weeks. , supervision, high-risk, third [facility] er 11/09/2023 Iron deficiency anemia 06/15/2022 Overview: Repeat cbc 32-33 weeks Supervision of high risk in third [facility] 03/07/2022 Overview: GDM diagnosed at 13 weeks by abnormal 3 hour GTT. Hemoglobin A1c WNL. Patient has history of PCOS. Glucometer and testing supplies ordered to patient's preferred pharmacy. Will begin testing fasting and 1 hour postprandial blood sugars and report weekly via [employer]. Nutrition consult is scheduled for 03/18. Hemoglobin [...] as of this encounter (statuses as of 03/28/2024) Resolved Problems Problem Noted Date Diagnosed Date [...] as of this encounter (statuses as of 03/28/2024) Immunizations Name Administration Dates Next Due COVID-19 [...] of Binge Drinking Not on file 01/10 [place] Depression Scale Answer Date Recorded [place] Depression Scale Total 0 11/09/2023 The thought [...] PM EDT Office Visit Gynecology/Obstetrics [facility] 132 [facility] [place] [address] Daina Momin PA-C 132 [facility] [place] [address] 04/04/2024 2:30 PM EDT Pharmacy Pharmacy, [place] [address] [place], [place] [id number] Clinic, [facility] [address] [place] [address] 04/11/2024 3:30 PM EDT Imaging Radiology [facility] 2nd [facility] 132 [facility] [place] [address] 04/11/2024 4:15 PM EDT Office Visit Gynecology/Obstetrics [facility] 132 [facility] [place] [address] Rica Hemphill MD [address] [place], [place] [address] [address] 04/18/2024 3:30 PM EDT Office Visit Dry Mop Maker Obstetrics [facility], [place] [address] [place] [address] Jf Polanco, DO [address] [place] [address] 04/18/2024 3:30 PM EDT [facility] [address] [place] [address] Health Maintenance Due Date Last Done Comments [...] Primary documented in this encounter Administered Medications Active Administered Medications - up to 3 most recent administrations Medication Order MAR Action Action Date Dose Rate Site EPINEPHrine 1 MG/ML inj 0.3 mg 0.3 mg, Intramuscular, ONCE PRN Other, Hypersensitivity Reaction or Anaphylaxis, Starting on Tanja 03/28/24 at 1310, Until Mon03/29/24 at 1309, For 24 hours Famotidine (Pepcid) inj 20 mg 20 mg, IV Push, ONCE PRN Other, Hypersensitivity Reaction, Starting on Tanja 03/28/24 at 1310, Until Mon03/29/24 at 1309, For 24 hours, Give IV push over 2 minutes. hEParin 100 UNIT/ML Lock Flush inj 500 Units 500 Units (5 mL), IV Lock, PRN Other, IV Flush, Starting on Mon03/28/24 at 1310, Until Mon03/29/24 at 1309, For 24 hours, Do not flush if lock, PICC, or central line not in place; IV infusing or unable to flush. Hydrocortisone Sod Suc (PF) (Solu-Cortef) inj 100 mg 100 mg, IV Push, ONCE PRN Other, Hypersensitivity Reaction, Starting on Mon03/28/24 at 1310, Until Mon03/29/24 at 1309, For 24 hours NSS infusion Intravenous, at 50 mL/hr, PRN, Starting on Mon03/28/24 at 1415, Until Discontinued, Maintenance line Start Infusion 03/28/2024 1:21 PM EDT 50 mL/hr oxygen GAS Inhalation, OXYGEN, First dose on Mon03/28/24 at 1600, Until Discontinued, Device/Managed by: Low Flow Device, Goal SPO2 (%): 91-95, Starting Device: Nasal Cannula, Initial Flow Rate (LPM): 2, Lowest Support: Nasal Cannula: Flow 0-6 LPM. Titrate up/down by 1 LPM., Higher Support: Non-Rebreather (NRB) Mask: Minimum of 10 LPM. Titrate to maintain bag inflation., Titration Interval: Q2 minutes and as needed., Notify Provider: For sudden DECREASE in resting SPO2 to less than 85% and when escalating delivery device., Wean patient off Oxygen when the oxygen saturation is greater than or equal to 93% sodium chloride 0.9 % flush central line 10 mL 10 mL, IV Push, PRN Other, IV Flush, Starting on Mon03/28/24 at 1310, Until Mon03/29/24 at 1309, For 24 hours, Do not flush if lock, PICC, or central line not in place; IV infusing or unable to flush. Inactive Administered Medications - up to 3 most recent administrations Medication Order MAR Action Action Date Dose Rate Site Iron Dextran (Infed) 975 mg in NSS 250 mL INFUSION 975 mg, IV Piggyback, ONCE, 1 dose, On Mon03/28/24 at 1430, Administer over 1 Hours, - [...] Given 03/28/2024 1:37 PM EDT 25 mg documented in this encounter Care Teams Carcass Washer Relationship Specialty Start Date End Date Mehnaz Capone DO [address] [place] [address] PCP - General Family Medicine 03/02/16 documented as of this encounter
--- OUTSIDE RECORDS SUMMARY | 2024-05-31 03:29 | External Medical Summary | Summary of Care ---
Author Name Unknown Organization [facility] Address [address] [place] [address] Phone [phone] Care Team Providers Care Building Maintenance Custodian Name Role Phone Mehnaz Capone DO Primary Care Provider [phone] Reason for Visit * Reason Comments Blood Management Program Encounter Details Date Type Department Care Team (Late st Contact Info) Description 03/11/2024 Documentation Patient Blood Management, [place] [address] [place] [address] Melquiades Das, RN Allergies No known active allergiesdocumented as of [...] postprandial blood sugars and report weekly via [employer]. Nutrition consult is scheduled for 03/18. Hemoglobin AIC Results: Lab Results Component Value Date/Time HEMOGLOBIN A1C - [facility] 5.4 02/28/2022 09:18 AM Results for AVI [...] of Binge Drinking Not on file 01/10 [place] Depression Scale Answer Date Recorded [place] Depression Scale Total 0 11/09/2023 The thought [...] as of this encounter Progress Notes * Melquiades Das RN - 03/11/2024 4:32 PM EDT REFERRAL - Patient Blood Management Name: Avi Giraldo REQUESTING SERVICE: [facility] OB REASON FOR REFERRAL: new evaluation outpatient, anemia in [place]: 05/28/ Anemia Evaluation: Latest Reference Range & Units 03/11/24 09:17 HGB 12.0 - 15.3 g/dL 10.8 (L) HCT 36.0 - 45.2 % 33.0 (L) (L): Data is abnormally low Current Patient Medications: Medications that may impair hemostasis: none Medications that may impair iron absorption: none Patient Refused Blood Transfusion? (e.g. Holiness): no Possible Contributing Factors: iron deficiency Treatment Recommendations: IV iron per OB MTM guidelines. 03/11 - Spoke with Avi, she is agreeable to IV iron at [facility]. Will submit OB MTM. Thank you for allowing Blood Management to participate in the care of this patient. documented in this encounter Plan of Treatment Upcoming Encounters Date Type Department Care Team (Late st Contact Info) Description 03/28/2024 4:30 PM EDT Office Visit Gynecology/Obstetrics [facility] [address] [place] [address] Daina Momin PA-C [address] [place] [address] 04/11/2024 3:30 PM EDT Imaging Radiology [facility] 2nd [facility] [address] [place] [address] 04/11/2024 4:15 PM EDT Office Visit Gynecology/Obstetrics [facility] [address] [place] [address] Rica Hemphill MD [address] [place] [address] Health Maintenance Due Date Last Done Comments [...] filedocumented as of this encounter Care Teams Building Maintenance Custodian Relationship Specialty Start Date End Date Mehnaz Capone DO [address] [place] [address] PCP - General Family Medicine 03/02/16 documented as of this encounter
--- OUTSIDE RECORDS SUMMARY | 2024-05-31 03:29 | External Medical Summary | Summary of Care ---
Author Name Unknown Organization [facility] Address [address] [place] [address] Phone [phone] Care Team Providers Care Test Deck Supervisor Name Role Phone Mehnaz Capone DO Primary Care Provider [phone] Reason for Visit * Reason Onset Date Comments Anemia Follow-Up 03/20/2024 * Evaluate & Treat - Unlimited Visits (Within 10 days (routine)) - Authorized Specialty Diagnoses / Procedures Referred By Jamal reyes Referred To Contact Pharmacist / Pharmacy Diagnoses WADE (iron deficiency anemia) Maggi Anderson CRNP [address] [place] [address] Referral ID Status Reason Start Date Expiration Date Visits Requested Visits Authorized [id number] Authorized Specialty Services Required 03/12/2024 09/08/2024 99 99 Encounter Details Date Type Department Care Team (Late st Contact Info) Description 03/20/2024 4:00 PM EDT Pharmacy Pharmacy, [place] [address] [place], [place] [id number] Clinic, [facility] [address] [place] [address] Iron deficiency anemia, unspecified iron deficiency anemia [...] blood sugars each week for MFM review. 03/19/[id number] 4 days. Elevated fasting blood sugars. Advised [...] Recommend nutrition consult with RDN (Registered Dietitian Heel Shaper). Lifestyle changes are also indicated including optimizing [...] postprandial blood sugars and report weekly via [employer]. Nutrition consult is scheduled for 03/18. Hemoglobin AIC Results: Lab Results Component Value Date/Time HEMOGLOBIN A1C - [facility] 5.4 02/28/2022 09:18 AM Results for AVI [...] of Binge Drinking Not on file 01/10 [place] Depression Scale Answer Date Recorded [place] Depression Scale Total 0 11/09/2023 The thought [...] as of this encounter Progress Notes * Yesenia Pederson RPh - 03/20/2024 3:50 PM EDT Patient Phone Numbers Patient referred by ZAINAB Clark for evaluation of anemia by the Anemia Clinic. Called patient to introduce role/clinic and to review labs from 03/11. Hgb: 10.8 g/dL TSAT: 12 % Ferritin: 12 ng/mL B12: 307 pg/mL FA: >20.0 ng/mL GA: 30w1d Estimated Date of Delivery: 05/28/24 Hgb is below target range for the third trimester. Iron studies below target range. B12 level within target range. FA level within target range. Patient reports feeling extra tired and taking a lot more naps and otherwise denies signs/symptoms of anemia. Oral iron replenishment inadequate or contraindicated. Patient qualifies for IV iron repletion. Plan: Iron dextran (INFeD) 1000 mg IV x 1 dose. Orders placed and routed to appropriate parties at [facility]. Patient agreeable to intervention. Follow-up labs to be scheduled ~4-6 weeks after iron repletion completed if appropriate prior to delivery. Anemia Clinic will continue to follow. Thank you for allowing us to participate in the care of thispatient. Thanks, Yesenia Pederson [facility] Clinical Pharmacist [facility] (P: [phone]) 03/20/2024 3:50 PM documented in this encounter Plan of Treatment Upcoming Encounters Date Type Department Care Team (Late st Contact Info) Description 03/21/2024 9:30 AM EDT Office Visit School Bus Mechanic Obstetrics Maternal Medicine, [place] [address] [place] [address] Jf Polanco, [address] [place] [address] 03/21/2024 9:30 AM EDT [facility] [place] [address] [place] [address] 03/28/2024 10:00 AM EDT Pharmacy Pharmacy, [place] [address] [place] [address] Clinic, [facility] [address] [place] [address] 03/28/2024 4:30 PM EDT Office Visit Gynecology/Obstetrics [facility] 132 [facility] [place] [address] Daina Momin PA-C 132 [facility] [place] [address] 04/11/2024 3:30 PM EDT [facility] 132 [facility] [place] [address] 04/11/2024 4:15 PM EDT Office Visit Gynecology/Obstetrics [facility] 132 [place] [address] Rica Hemphill MD [address] [place], [place] [address] [address] Scheduled Referrals Name Type Priority Associated Diagnoses [...] Primary documented in this encounter Care Teams Test Deck Supervisor Relationship Specialty Start Date End Date Mehnaz Capone DO [address] [place] [address] PCP - General Family Medicine 03/02/16 documented as of this encounter
--- OUTSIDE RECORDS SUMMARY | 2024-05-31 03:29 | External Medical Summary | Summary of Care ---
Author Name Unknown Organization [facility] Address [address] [address] Phone [phone] Care Team Providers Care Informatics Coordinator Name Role Phone Mehnaz Capone DO Primary Care Provider + [phone] Reason for Referral * Evaluate & Treat - Unlimited Visits (Within 10 days (routine)) Specialty Diagnoses / Procedures Referred By Jamal reyes Referred To Contact Pediatric Hematology/Oncology Suraj [place] CRNP [address] [address] Referral ID Status Reason Start Date Expiration Date V isits Requested Visits Authorized Specialty Services Required Question Answer Referral Priority Within 10 days (routine) Where should this appointment be scheduled? [facility] * Evaluate & Treat - Unlimited Visits (Within 10 days (routine)) - Authorized Specialty Diagnoses / Procedures Referred By Jamal reyes Referred To Contact Granulating Machine Operator / Nutrition Services Diagnoses Diet controlled gestational diabetes mellitus (GDM) in third trimester Suraj [place] CRNP [address] [address] Referral ID Status Reason Start Date Expiration Date Visits Requested Visits Authorized [id number] Authorized Specialty Services Required 03/11/2024 999 999 Question Answer Is the patient ? Yes Referral Priority Within 10 days (routine) Where should this appointment be scheduled? [facility] Comments This referral is for Diabetes Self-Management Training (DSMT) by a recognized [place] [employer] (ADA) staff development educator: Nurse (RN), Registered Dietitian Candle Wicker (RDN), and/or Diabetes Medical Nutrition Therapy (MNT) Management (dietitian only). Diabetes educators are responsible for assessing the participant's diabetes education needs, and providing diabetes self-management training in accordance with the standards set by the ADA for DSMT. Any adjustment in diabetes therapy will be made within the guidelines of standards of practice and [facility] approved policies and procedures. I understand that the staff development educator will keep me informed. Areas of [...] [place] CRNP [address] [place] [address] Referral ID Status Reason Start Date Expiration Date Visits Requested Visits Authorized [id number] Authorized Specialty Services Required 03/11/2024 999 999 [...] Gynecology/Obstetrics Otilia Alberts [address] [place] [address] Backer, ZAINAB Cline [address] [place] [address] Test Results Allergies No known active allergiesdocumented [...] postprandial blood sugars and report weekly via Dezineforce. Nutrition consult is scheduled for 03/18. Hemoglobin AIC Results: Lab Results Component Value Date/Time HEMOGLOBIN A1C - Vitrum View, LLCER 5.4 02/28/2022 09:18 AM Results for AVI [...] of Binge Drinking Not on file 01/10 [place] Depression Scale Answer Date Recorded [place] Depression Scale Total 0 11/09/2023 The thought [...] Encounter - Elin Guzman LPN - 03/11/2024 3:35 PM EDT Patient aware * Addendum Note - Suraj [place] CRNP [...] checking blood sugars QID and report to M (sending a referral). Fasting goal (8-10 hrs overnight) is <95; 1 hr after each meal with goal <140. Recommend meeting with certified lactation educator for nutrition. MFM will request an u/s with them; follow up imaging can likely be done locally. Please confirm pharmacy and re-route to me. ZAINAB Schuster documented in this encounter Plan of Treatment Upcoming Encounters Date Type Department Care Team (Late st Contact Info) Description 03/28/2024 4:30 PM EDT Office Visit Gynecology/Obstetrics [facility] [address] [place] [address] Daina Momin PA-C [address] [place] [address] 04/11/2024 3:30 PM EDT Imaging Radiology [facility] 2nd [facility] [place] [address] [place] [address] 04/11/2024 4:15 PM EDT Office Visit Gynecology/Obstetrics [facility] [address] [place] [address] Rica Hemphill MD [address] [place] [address] [place] [address] Scheduled Orders Name Type Priority Associated Diagnoses Orde r Schedule MFM US MATERNAL 1ST FETUS Medical Imaging Routine [...] complication documented in this encounter Care Teams Informatics Coordinator Relationship Specialty Start Date End Date Mehnaz Capone DO [address] [place] [address] PCP - General Family Medicine 03/02/16 documented as of this encounter
--- OUTSIDE RECORDS SUMMARY | 2024-05-31 03:29 | External Medical Summary | Summary of Care ---
Author Name Unknown Organization [facility] Address [address] [place] [address] Phone [phone] Care Team Providers Care Residential Assistant Name Role Phone Mehnaz Capone DO Primary Care Provider [phone] Encounter Details Date Type Department Care Team (Late st Contact Info) Description 03/21/2024 Orders Only Pharmacy, [place] [address] [place], [place] [id number] [facility] [address], [place] [id number] Allergies No known active allergiesdocumented as of [...] of 35.0 to 35.9 in adult 03/21/2024 with 29 completed weeks gestation 11/2023 Diet [...] blood sugars each week for MFM review. 03/19/20246596-BFI-ndtsdayh 4 days. Elevated fasting blood sugars. Advised [...] Recommend nutrition consult with RDN (Registered Dietitian Treating Inspector). Lifestyle changes are also indicated including optimizing [...] Supervision of high risk in third [facility] 03/07/2022 Overview: GDM diagnosed at 13 weeks by abnormal 3 hour GTT. Hemoglobin A1c WNL. Patient has history of PCOS. Glucometer and testing supplies ordered to patient's preferred pharmacy. Will begin testing fasting and 1 hour postprandial blood sugars and report weekly via Bountysource. Nutrition consult is scheduled for 03/18. Hemoglobin AIC Results: Lab Results Component Value Date/Time HEMOGLOBIN A1C - Watchful SoftwareER 5.4 02/28/2022 09:18 AM Results for AVI [...] mRNA, LNP-s, No Pre serve, 2-Dose Series ([employer]) 05/26/2021,05/05/2021 Meningococcal Conjugate Vaccine (Menactra/Menveo ) 08/10/2007 [...] of Binge Drinking Not on file 01/10 [place] Depression Scale Answer Date Recorded [place] Depression Scale Total 0 11/09/2023 The thought [...] Description 03/28/2024 10:00 AM EDT Pharmacy Pharmacy, [address] [address] Clinic, [place] [address] [place] [address] 03/28/2024 4:30 PM EDT Office Visit Gynecology/Obstetrics [facility] [address] [place] [address] Daina Momin PA-C [address] [place] [address] 04/11/2024 3:30 PM EDT [facility] [address] [place] [address] 04/11/2024 4:15 PM EDT Office Visit Gynecology/Obstetrics [facility] [address] [place] [address] Rica Hemphill MD [address] [place] [address] Health Maintenance Due Date Last Done Comments [...] filedocumented as of this encounter Care Teams Residential Assistant Relationship Specialty Start Date End Date Mehnaz Capone DO [address] [place] [address] PCP - General Family Medicine 03/02/16 documented as of this encounter
--- OUTSIDE RECORDS SUMMARY | 2024-05-31 03:29 | External Medical Summary | Summary of Care ---
Author Name Unknown Organization [facility] Address [address] [place] [address] Phone [phone] Care Team Providers Care Raised Printer Name Role Phone Mehnaz Capone DO Primary Care Provider Reason for Visit * Reason Onset Date Comments Home Monitoring Orders Only 03/15/2024 Encounter Details Date Type Department Care Team (Late st Contact Info) Description 03/15/2024 Home Monitoring Care Coordination [address] [place], [place] [phone] Vesta Hurst CRNP [address] [place] [address] Diet controlled gestational diabetes mellitus (GDM) in third trimester* Allergies No known active allergiesdocumented as of this encounter (statuses as of 03/15/2024) Medications Medication Sig Dispensed Refills Start Date [...] as of this encounter (statuses as of 03/15/2024) Active Problems Problem Noted Date Diagnosed Date [...] 03/13/24: MFM ADAPT consult complete. Enrolled in [facility]. Instructions provided to report blood sugars each week for MFM review. Last Assessment & Plan: CONSIDERATIONS: Reviewed etiology [...] Recommend nutrition consult with RDN (Registered Dietitian Gear Grinding Machine Operator). Lifestyle changes are also indicated including optimizing [...] of other normal , unspecified trimester 11/09/2023 Supervision of high risk in third trim [place] 03/07/2022 Overview: GDM diagnosed at 13 weeks by abnormal 3 hour GTT. Hemoglobin A1c WNL. Patient has history of PCOS. Glucometer and testing supplies ordered to patient's preferred pharmacy. Will begin testing fasting and 1 hour postprandial blood sugars and report weekly via AffinityClick. Nutrition consult is scheduled for 03/18. Hemoglobin [...] as of this encounter (statuses as of 03/15/2024) Resolved Problems Problem Noted Date Diagnosed Date Resolved Date History of gestational diabe meir in prior , currently 11/09/2023 03/11/2024 Overview: Early 3 hr glucose test - passed Iron deficiency anemia 06/15/202210/18 Overview: Repeat cbc 32-33 weeks Diet controlled gestational diabetes mellitus (GDM), antepartum [...] as of this encounter (statuses as of 03/15/2024) Immunizations Name Administration Dates Next Due COVID-19 [...] of Binge Drinking Not on file 01/10 Flasher Depression Scale Answer Date Recorded Flasher Depression Scale Total 0 11/09/2023 The thought [...] as of this encounter Progress Notes * Jeff Vu, [facility] Financial Management Consultant - 03/15/2024 9:38 AM EDT Patient has been successfully enrolled to the [id number] Diabetes Management in program. Standard alarm settings have been set as follows: Singular glucose level > 200 Singular glucose level < 60 Patient has been advised to take blood sugar four times a day (fasting upon waking, and one hour after each meal). Patient has been oriented to remote patient monitoring, assisted with initial device set-up, and provided with instruction and education regarding the program. Patient understands that this monitoring should not be used as a replacement for emergency and/or urgent care. If patient experiences any urgent symptoms, they are aware to call office/avionics test technician provider for additional instructions. In emergency situations, they will report directly to the ED for further evaluation. If you would like to customize the alert parameters and/or instructions for this patient, please let me know and we can have them changed. documented in this encounter Plan of Treatment Upcoming Encounters Date Type Department Care Team (Late st Contact Info) Description 03/20/2024 4:00 PM EDT Pharmacy Pharmacy, [address] [address] Clinic, [place] [address] [place] [address] 03/21/2024 9:30 AM EDT Office Visit [facility] Obstetrics [facility]aternal [facility], [address] [address] Jf Polanco, [address] [place] [address] 03/21/2024 9:30 AM EDT [facility], [address] [address] 03/28/2024 4:30 PM EDT Office Visit Gynecology/Obstetrics [facility] [address] [facility] [place] [address] Daina Momin PA-C [address] [place] [address] 04/11/2024 3:30 PM EDT Imaging Radiology [facility] 2nd Floor, [place] [facility] [place] [address] 04/11/2024 4:15 PM EDT Office Visit Gynecology/Obstetrics [facility] [address] [facility] [place] [address] Rica Hemphill MD [address] [place] [address] [place] [address] Health Maintenance Due Date Last Done Comments [...] Primary documented in this encounter Care Teams Raised Printer Relationship Specialty Start Date End Date Mehnaz Capone DO [address] [place] [address] PCP - General Family Medicine 03/02/16 documented as of this encounter
--- OUTSIDE RECORDS SUMMARY | 2024-05-31 03:29 | External Medical Summary | Summary of Care ---
Author Name Unknown Organization [facility] Address [address] [place] [address] Phone [phone] Care Team Providers Care Vulcanizing Machine Operator Name Role Phone Mehnaz Capone DO Primary Care Provider + [phone] Reason for Referral * Evaluate & Treat - Unlimited Visits (Within 3 days (urgent)) - Authorized Specialty Diagnoses / Procedures Referred By Jamal reyes Referred To Contact Fur Remodeler Diagnoses Diet controlled gestational diabetes mellitus (GDM) in third trimester Vesta Hurst CRNP [address] [place] [address] Referral ID Status Reason Start Date Expiration Date Visits Requested Visits Authorized [id number] Authorized Specialty Services Required 03/13/2024 1 1 Question Answer Referral Priority Within 3 days (urgent) Where should this appointment be scheduled? [facility] Program Type Chronic Disease Management Chronic Disease Management Diabetes in Alarm Settings Standard per protocol Comments OneTouch Verio Reason for Visit * Reason Comments Consultation GESTATIONAL DIABETES * Evaluate & Treat - Unlimited Visits (Within 10 days (routine)) - Authorized Specialty Diagnoses / Procedures Referred By Jamal reyes Referred To Contact Obstetrics/Gynecology / Maternal Medicine Diagnoses Diet controlled gestational diabetes mellitus (GDM) in third trimester Obesity in , antepartum Backer, ZAINAB Cline [address] [place] [address] Referral ID Status Reason Start Date Expiration Date Visits Requested Visits Authorized [id number] Authorized Specialty Services Required 03/11/2024 999 999 Encounter Details Date Type Department Care Team (Late st Contact Info) Description 03/13/2024 9:45 AM EDT Telemedicine Construction Operations Manager Obstetrics Maternal [facility], [place] [address] [place] [address] Vesta Hurst CRNP [address] [place] [address] Obesity in , antepartum*; Diet controlled gestational diabetes mellitus (GDM) in third trimester; Supervision of high risk in third trimester; with 29 completed weeks gestation Allergies No known active allergiesdocumented as of this encounter (statuses as of 03/13/2024) Medications Medication Sig Dispensed Refills Start Date [...] as of this encounter (statuses as of 03/13/2024) Active Problems Problem Noted Date Diagnosed Date [...] Recommend nutrition consult with RDN (Registered Dietitian Admission Specialist). Lifestyle changes are also indicated including optimizing [...] postprandial blood sugars and report weekly via Sarnova. Nutrition consult is scheduled for 03/18. Hemoglobin AIC Results: Lab Results Component Value Date/Time HEMOGLOBIN A1C - Dine perfectER 5.4 02/28/2022 09:18 AM Results for AVI [...] as of this encounter (statuses as of 03/13/2024) Resolved Problems Problem Noted Date Diagnosed Date [...] as of this encounter (statuses as of 03/13/2024) Immunizations Name Administration Dates Next Due COVID-19 mRNA, LNP-s, No Pre serve, 2-Dose Series (Mulu) 05/26/2021,05/05/2021 Meningococcal Conjugate Vaccine (Menactra/Menveo ) 08/10/2007 [...] of Binge Drinking Not on file 01/10 [place] Depression Scale Answer Date Recorded [place] Depression Scale Total 0 11/09/2023 The thought [...] as of this encounter Progress Notes * Vesta Hurst CRNP - 03/13/2024 10:16 AM EDT MATERNAL MEDICINE CONSULT Avi Giraldo 03/13/24 REFERRING PROVIDER: ZAINAB Sloan Patient location: HOME. I was in a hospital or clinic location. After connecting through televideo,patient was verified with two unique identifiers. Patient (or authorized legal customer success representative) was then informed that this was a Telemedicine visit and being conducted confidentially over secure lines. Methods to assure confidentiality were taken. Patient acknowledged consent and understanding of pr ivacy and security of the Telemedicine visit. The patient agreed to participate. Avi Burnsraw is a 33 year old with intrauterine at 29w1d (Estimated Date of Delivery: 05/28/24 by 11w2d ultrasound) who presents today for an MFM consult due to class 2 obesity and gestational diabetes. HPI/CURRENT : pre- BMI=class 2 obesity (98.4 kg (217 lb); 5' 5.75"); FOB Mohan; complicated by above. Genetic testing: Opted out OB Pierre Alberts Problems (from 11/07/23 to present) Problem Noted Resolved Diet controlled gestational diabetes mellitus (GDM) in third trimester 03/11/2024 by Ginny [place] CRNP No Overview Signed 03/12/2024 12:07 PM by Vesta Hurst CRNP Diagnosed at 29 weeks Nutrition consult ordered Lab Results Component Value Date/Time 50-G GESTATIONAL [...] report blood sugars each week for MFM review Obesity in , antepartum 02/09/2024 by Maggi [place] CRNP No Overview Addendum 03/12/2024 12:06 PM by Vesta Hurst CRNP Pre gravid BMI: 35.2 Class 2 obesity Baseline Preeclampsia Labs Lab Results Component Value Date/Time PLT 187 03/11/2024 09:17 AM CREATININE - [facility] 0.7 03/11/2024 09:17 AM AST - [facility] 15 10/26/2022 09:20 AM ALT - [facility] 17 10/26/2022 09:20 AM I have reviewed this patient's previous OB ultrasound reports, pertinent labwork and testing provided by her referring OB provider. Current Outpatient Medications Medication Sig Dispense Refill OneTouch Delica Lancets 33G Use as directed, check blood sugar 4x/day 100 Each 6 OneTouch Verio In Vitro Strip (Glucose Blood) Check blood sugar 4x/day 500 Strip 2 28-0.8 MG Oral Tablet Take by mouth. No current facility-administered medications for this visit. Review of patient's allergies indicates: No Known Allergies OB History Para Term AB Living 2 1 1 0 0 1 SAB IAB Ectopic Multiple Live Births 0 0 0 0 1 # Outcome Date GA Lbr Anthony/2nd Weight Sex Type Anes PTL Lv 2 Current 1 Term 09/06/22 40w4d 4.139 kg (9 lb 2 oz) M Vag-Spont EPI N [place] Obstetric Comments 2023 FOB #1 Mohan, age 33, healthy, no other children Past Medical History: Diagnosis Date Cholecystitis 10/2022 GDM (gestational diabetes mellitus) 02/28/2022 PCOS (polycystic ovarian syndrome) Varicella without complication age 2 Past Surgical History: Procedure Laterality Date EGD, FLEXIBLE,W/ENDOSCOPIC US 10/13/2022 CBD dilation, sludge / [facility] ERCP 10/13/2022 stent placed, repeat 2 mo / [facility] ERCP W/ STENT EXCHANGE 12/21/2022 biliary sludge, stent removed / ENDOSCOPIC RETROGRADE CHOLANGIOPANCREATOGRAPHY (ERCP) W/STENT REMOVAL AND EXCHANGE; INC DILATION, GUIDE WIRE AND SPHINCTEROTOMY performed by Mita Khan MD at ENDOSCOPY [facility]; CHOLECYSTECTOMY 10/13/2022 done through ED at [facility] by Dr Biju LAZO DILATE BILIARY STRUCTURE W STENT 2022 Family History Problem Relation Name Age of Onset No Known Problems Mother No Known Problems Father No Known Problems Brother Diabetes Grandfather (Paternal) Social History Tobacco Use Smoking status: Never Passive exposure: Past Smokeless tobacco: Never Tobacco comments: dad smokes in house, pt lives w/ mom Substance Use Topics Alcohol use: Not Currently Comment: socially Drug use: No REVIEW OF SYSTEMS: headaches: no nausea/vomiting: denies reports movement: yes abdominal pain/tenderness/cramping/contractions: no vaginal bleeding: no vaginal leaking of fluid: no all other systems negative PHYSICAL EXAM: LMP (LMP Unknown) General: Well appearing Psych: Alert to time, place, and person and Pleasant DISCUSSION/RECOMMENDATIONS: Problem List Items Addressed This Visit OB Pierre Alberts Obesity in , antepartum CONSIDERATIONS: Discussed obstetrical risks associated with class [...] recommend weekly surveillance starting at 37 weeks. Diet controlled gestational diabetes mellitus (GDM) in third trimester CONSIDERATIONS: Reviewed etiology and risks associated with gestational diabetes mellitus (GDM), including risks topregnancy, fetus, and maternal progression to Type 2 [...] Recommend nutrition consult with RDN (Registered Dietitian Admission Specialist). Lifestyle changes are also indicated including optimizing gestational weight gain and physical activity of 30 minutes per day, if not otherwise contraindicated in . Insulin is preferred if medications are indicated to optimize euglycemia. Metformin (preferred overglyburide) may also be used in some circumstances. [...] with 75-gram glucose load 6-8 weeks . Other Supervision of high risk in third trimester with 29 completed weeks gestation Follow up ultrasound with Maternal Medicine is scheduled on 03/21/[address] Polanco for anatomy scan secondary to class 2 obesity and gestational diabetes. Patient is aware of upcoming MFM appointment. ZAINAB Lopez 03/13/2024 10:20 AM documented in this encounter Miscellaneous Notes * Assessment & Plan Note - Vesta Hurst CRNP - 03/13/2024 9:51 AM EDT Associated Problem(s): Diet controlled gestational diabetes mellitus (GDM) in third trimester CONSIDERATIONS: Reviewed etiology and risks associated with gestational diabetes mellitus (GDM), including risks topregnancy, fetus, and maternal progression to Type 2 [...] Recommend nutrition consult with RDN (Registered Dietitian Admission Specialist). Lifestyle changes are also indicated including optimizing gestational weight gain and physical activity of 30 minutes per day, if not otherwise contraindicated in . Insulin is preferred if medications are indicated to optimize euglycemia. Metformin (preferred overglyburide) may also be used in some circumstances. [...] with 75-gram glucose load 6-8 weeks . * Assessment & Plan Note - Vesta Hurst CRNP - 03/13/2024 9:50 AM EDT Associated Problem(s): Obesity in , antepartum CONSIDERATIONS: Discussed obstetrical risks associated with class [...] recommend weekly surveillance starting at 37 weeks. documented in this encounter Plan of Treatment Upcoming Encounters Date Type Department Care Team (Late st Contact Info) Description 03/20/2024 4:00 PM EDT Pharmacy Pharmacy, [address] [id number] Clinic, [place] [address] [place] [address] 03/21/2024 9:30 AM EDT Office Visit Construction Operations Manager Obstetrics Maternal [facility], [address] [address] Jf Polanco, [address] [place] [address] 03/21/2024 9:30 AM EDT [facility], [address] [address] 03/28/2024 4:30 PM EDT Office Visit Gynecology/Obstetrics [facility] [address] [facility] [place] [address] Daina Momin PA-C [address] [place] [address] 04/11/2024 3:30 PM EDT Imaging [facility] [address] [place] [address] 04/11/2024 4:15 PM EDT Office Visit Gynecology/Obstetrics [facility] [address] [place] [address] Rica Hemphill MD [address] [place] [address] [place] [address] Scheduled Referrals Name Type Priority Associated Diagnoses Orde r Schedule REMOTE PATIENT MONITORING REFERRAL Referral Within 3 days (urgent) Diet controlled gestational diabetes mellitus (GDM) in third trimester Ordered: 03/13/2024 Health Maintenance Due Date Last Done Comments [...] as of this encounter Visit Diagnoses Diagnosis Obesity in , antepartum- Primary Obesity complicating , childbirth, or the puerperium, antepartum condition or complication Diet controlled gestational diabetes mellitus (GDM) in third trimester Supervision of high risk in third trimester Unspecified high-risk with 29 completed weeks gestation documented in this encounter Care Teams Vulcanizing Machine Operator Relationship Specialty Start Date End Date Mehnaz Capone DO [address] [place] [address] PCP - General Family Medicine 03/02/16 documented as of this encounter
--- OUTSIDE RECORDS SUMMARY | 2024-05-31 03:29 | External Medical Summary | Summary of Care ---
Author Name Unknown Organization [facility] Address [address] [place] [address] Phone [phone] Care Team Providers Care Consulting Services Manager Name Role Phone Mehnaz Capone DO Primary Care Provider [phone] Reason for Visit * Reason Onset Date Comments Referral 03/12/2024 Encounter Details Date Type Department Care Team (Late st Contact Info) Description 03/12/2024 Telephone Track Welder Obstetrics Maternal Medicine, [place] [address] [place], [place] [id number] [place], Nurse Track Welder [facility] [address] [place] [address] Referral Allergies No known active allergiesdocumented as of this encounter (statuses as of 03/12/2024) Medications Medication Sig Dispensed Refills Start Date [...] as of this encounter (statuses as of 03/12/2024) Active Problems Problem Noted Date Diagnosed Date [...] as of this encounter (statuses as of 03/12/2024) Resolved Problems Problem Noted Date Diagnosed Date [...] postprandial blood sugars and report weekly via [employer]. Nutrition consult is scheduled for 03/18. Hemoglobin AIC Results: Lab Results Component Value Date/Time HEMOGLOBIN A1C - [facility] 5.4 02/28/2022 09:18 AM Results for AVI [...] as of this encounter (statuses as of 03/12/2024) Immunizations Name Administration Dates Next Due COVID-19 [...] of Binge Drinking Not on file 01/10 [place] Depression Scale Answer Date Recorded [place] Depression Scale Total 0 11/09/2023 The thought [...] encounter Miscellaneous Notes * Telephone Encounter - Livia Sheehan OSA - 03/12/2024 8:49 AM EDT Spoke with Avi. Appointment scheduled. Patient aware of date, time and location of Maternal Medicine appointment. * Telephone Encounter - Adilene Gonzales CCMA - 03/12/2024 8:43 AM EDT Estimated Date of Delivery: 05/28/24 Please schedule for 45 MINUTE ADAPT WITH SAW SUPERINTENDENT, in time frame of within 1 week at location [facility] with the indication of GDM. Please schedule anatomy within 2-3 weeks. Referring Provider: Maggi Anderson CRNP documented in this encounter Plan of Treatment Upcoming Encounters Date Type Department Care Team (Late st Contact Info) Description 03/13/2024 9:45 AM EDT Telemedicine Track Welder Obstetrics Maternal Medicine, [place] [address] [place] [address] Vesta Hurst CRNP [address] [place] [address] 03/21/2024 9:30 AM EDT Office Visit Track Welder Obstetrics Maternal Medicine, [place] [address] [place] [address] Jf Polanco DO [address] [place] [address] 03/21/2024 9:30 AM EDT [facility] [place] [address] [place] [address] 03/28/2024 4:30 PM EDT Office Visit [facility]cology[facility] [address] [place] [address] Daina Momin PA-C [address] [place] [address] 04/11/2024 3:30 PM EDT Imaging Radiology [facility] 2nd Floor, [place] [address] [place] [address] 04/11/2024 4:15 PM EDT Office Visit Gynecology/Obst[facility] [address] [place] [address] Rica Hemphill MD [address] [place] [address] [place] [address] Health Maintenance Due Date Last Done Comments [...] filedocumented as of this encounter Care Teams Consulting Services Manager Relationship Specialty Start Date End Date Mehnaz Capone DO [address] [facility] [id number] PCP - General Family Medicine 03/02/16 documented as of this encounter
--- OUTSIDE RECORDS SUMMARY | 2024-05-31 03:29 | External Medical Summary | Summary of Care ---
Author Name Unknown Organization [facility] Address [address] [facility] [place] [address] Phone [phone] Care Team Providers Care Credit Director Name Role Phone Mehnaz Capone DO Primary Care Provider [phone] Reason for Visit * Reason Comments Return Visit Encounter Details Date Type Department Care Team (Late st Contact Info) Description 03/28/2024 4:30 PM EDT Office Visit Gynecology/Obstetric s [facility]tilia Alberts [address] [place] [address] Daina Momin PA-C [address] [place] [address] , supervision, high-risk, third trimester*; Obesity in [...] sugar 4x/day 500 Strip 2 03/11/2024 Active SpaceFaceTouch Verio w/Device KitIndications:Diet controlled gestational diabetes mellitus [...] recommended to transfer growths ultrasound surveillance to [facility] in [facility] if able -Otherwise, will ctn Radiology scans and referral back to [facility] if indicated -Will also need [...] - [facility] 94 03/11/2024 09:17 AM 03/13/24: [facility] ADAPT consult complete. Enrolled in Current Health. Instructions provided to report blood sugars each week for [facility] review. 03/19/[id number] 4 days. Elevated fasting blood sugars. Advised to watch diet, eat bedtime snack, and avoid fasting longer than 8 to 10 hours. Will review again next week, and if persists, will schedule for follow up ADAPT with maternal medicine nurse practitioner. 03/27/20249220-[id number] stable (< 50% elevated) Last Assessment & [...] weeks. , supervision, high-risk, third [facility] er 11/09/2023 Iron deficiency anemia 06/15/2022 Overview: Repeat cbc 32-33 weeks Supervision of high risk in third [facility] 03/07/2022 Overview: GDM diagnosed at 13 weeks by abnormal 3 hour GTT. Hemoglobin A1c WNL. Patient has history of PCOS. Glucometer and testing supplies ordered to patient's preferred pharmacy. Will begin testing fasting and 1 hour postprandial blood sugars and report weekly via [employer]. Nutrition consult is scheduled for 03/18. Hemoglobin [...] of Binge Drinking Not on file 01/10 [place] Depression Scale Answer Date Recorded [place] Depression Scale Total 0 11/09/2023 The thought [...] Sign Reading Time Taken Comments Blood Pressure 104/62 03/28/2024 4:36 PM EDT Pulse - - Temperature - - Respiratory Rate - - Oxygen Saturation - - Inhaled Oxygen Concentration - - Weight 96.2 kg (212 lb) 03/28/2024 4:36 PM EDT Height - - Body Mass Index 34.48 03/11/2024 10:59 AM EDT documented in this encounter Progress Notes * Daina Momin PA-C - 03/28/2024 4:49 PM EDT 31w2d No complaints. Seeing [facility] for growth ultrasound, she stated they advised up to them if they wanted to continue growth sono with them or do locally. It is more difficult to travel, and they did have any appointment at [facility] until June -- pt would like to continue growth ultrasound here locally instead. GDM remains diet controlled, doing well. Denies LOF, VB, contractions. Baby is active. RTC in 2 weeks Daina Momin PA-C * Yasmine Bains LPN - 03/28/2024 4:36 PM EDT 31w2d Denies vaginal bleeding/rom + movement No new concerns documented in this encounter Plan of Treatment Upcoming Encounters Date Type Department Care Team (Late st Contact Info) Description 04/04/2024 2:30 PM EDT Pharmacy Pharmacy, [address] [address] 04/11/2024 3:30 PM EDT Imaging Radiology [facility] 2nd [facility] 132 [facility] [place] [address] 04/11/2024 4:15 PM EDT Office Visit Gynecology/Obstetrics [address] [place] [address] Rica Hemphill MD [address] [facility] [place] [address] 04/15/2024 9:30 AM EDT Office Visit Gynecology/Obstetrics [address] [place] [address] Landy Mann CNM [facility] [address] 04/18/2024 3:30 PM EDT Office Visit Quality Control Tech Raw Materials Obstetrics Maternal Medicine, [address] [place] [address] Jf Polanco, [address] [place] [address] 04/18/2024 3:30 PM EDT [facility] [place] [address] [place] [address] Health Maintenance Due Date Last Done Comments [...] antepartum documented in this encounter Care Teams Credit Director Relationship Specialty Start Date End Date Mehnaz Capone DO [address] [place] [address] PCP - General Family Medicine 03/02/16 documented as of this encounter
--- OUTSIDE RECORDS SUMMARY | 2024-05-31 03:30 | External Medical Summary ---
Author Name Unknown Address Unknown Organization [id number]:[facility] [place] [address] [place] [address] Laboratory Report Ordering Provider Test Date Status SARAI RUELAS 03/11/2024 09:17:54 Final Observation Date Value Abnormality Reference (Units ) Status Iron 03/11/2024 09:17:54 55 33-151 (ug/dL) Final Iron-binding capacity 03/11/2024 09:17:54 455 Above high normal 250-425 (ug/dL) Final Transferrin Sat % 03/11/2024 09:17:54 12 Below low normal 15-55 (%) Final Performing Location [facility] [place] [address] [place] [address]
--- OUTSIDE RECORDS SUMMARY | 2024-05-31 03:30 | External Medical Summary ---
Author Name Unknown Address Unknown Organization [id number]:LAB[facility]ATORY [facility] [place] [address] [place] [address] Laboratory Report Ordering Provider Test Date Status SARAI RUELAS 03/11/2024 09:17:54 Final Observation Date Value Abnormality Reference (Units ) Status Folic Acid 03/11/2024 09:17:54 >20.0 >4.5 (ng/ mL) Final Performing Location LABORATORY C - [address] [place] [address]
--- OUTSIDE RECORDS SUMMARY | 2024-05-31 03:30 | External Medical Summary ---
Author Name Unknown Address Unknown Organization [id number]:[facility] [place] [facility] [address] [facility] [address] Laboratory Report Ordering Provider Test Date Status SARAI RUELAS 03/11/2024 09:17:54 Final Observation Date Value Abnormality Reference (Units ) Status Retic, % (auto) 03/11/2024 09:17:54 1.95 Above high normal 0.80-1.90 (%) Final Reticulocytes, Absolute 03/11/2024 09:17:54 71.0 31.3-100.1 (K/uL) Final Reticulocyte fraction, immature 03/11/2024 09:17:54 25.8 Above high normal 2.5-20.6 (%) Final Reticulocyte HGB 03/11/2024 09:17:54 30.3 29.7-37.4 (pg) Final Performing Location [facility] [place] [address] [place] [facility] [address]
--- OUTSIDE RECORDS SUMMARY | 2024-05-31 03:30 | External Medical Summary | Summary of Care ---
Author Name Unknown Organization [facility] Address [address] [facility] [place] [address] Phone [phone] Care Team Providers Care Fabric Worker Leader Name Role Phone Mehnaz Capone DO Primary Care Provider [phone] Reason for Visit * Reason Comments Outpatient Testing Encounter Details Date Type Department Care Team (Late st Contact Info) Description 12/15/2023 8:00 AM EDT Laboratory Laboratory, [facility] [address] [facility] [address] [facility] [place] [address] Abnormal glucose tolerance in mother complicating Allergies No known active allergiesdocumented as of this encounter (statuses as of 12/15/2023) Medications Medication Sig Dispensed Refills Start Date End Date Status 28-0.8 MG Oral Tablet Take by mouth. 0 Active documented as of this encounter (statuses as of 12/15/2023) Active Problems Problem Noted Date Diagnosed Date Encounter for supervision of other normal , unspecified trimester 11/09/2023 History of gestational diabe meir in prior , currently 11/09/2023 Dermatitis due to plant 03/30/2016 Estimated Date of Delivery Comme nts Yes 05/28/2024 Based on Ultraso und documented as of this encounter (statuses as of 12/15/2023) Resolved Problems Problem Noted Date Diagnosed Date [...] postprandial blood sugars and report weekly via [employer]. Nutrition consult is scheduled for 03/18. Hemoglobin AIC Results: Lab Results Component Value Date/Time HEMOGLOBIN A1C - [facility] 5.4 02/28/2022 09:18 AM Results for AVI [...] as of this encounter (statuses as of 12/15/2023) Immunizations Name Administration Dates Next Due COVID-19 mRNA, LNP-s, No Pre serve, 2-Dose Series (Pfizer) 05/26/2021,05/05/2021 Meningococcal Conjugate Vaccine (Menactra/Menveo ) 08/10/2007 TDAP (age 10 and older)(Boostrix) 06/27/2022 TDAP (age 11 and older)(Adacel) 03/24/2006 documented as of this encounter Social [...] of Binge Drinking Not on file 01/10 [place] Depression Scale Answer Date Recorded [place] Depression Scale Total 0 11/09/2023 The thought of harming myself has occurred to me . Never 11/09/2023 Estimated Date of Delivery Comme nts Yes [...] Care Team (Late st Contact Info) Description 01/12/2024 9:15 AM EDT Imaging Radiology [facility] 2nd [facility] [address] [place] [address] 01/12/2024 10:45 AM EDT Office Visit Gynecology/Obstetrics [facility] [address] [place] [address] Meenakshi Perry CRNP 132 [facility] [place] [address] Pending Results Name Type Priority Associated Diagnoses Date /Time GESTATIONAL GLUCOSE TOLERANCE, 3 HOUR Lab Routine Abnormal glucose tolerance in mother complicating 12/15/2023 8:08 AM EDT 100-G GESTATIONAL GLUCOSE, FASTING Lab Routine Abnormal glucose tolerance in mother complicating 12/15/2023 8:08 AM EDT 100-G GESTATIONAL GLUCOSE, 1 HOUR Lab Routine Abnormal glucose tolerance in mother complicating 12/15/2023 9:11 AM EDT 100-G GESTATIONAL GLUCOSE, 2 HOUR Lab Routine Abnormal glucose tolerance in mother complicating 12/15/2023 10:10 AM EDT 100-G GESTATIONAL GLUCOSE, 3 HOUR Lab Routine Abnormal glucose tolerance in mother complicating 12/15/2023 11:10 AM EDT Health Maintenance Due Date Last Done Comments Depression Screening 11/14/2017 11/14/2016 HPV/Co-Test 2021 COVID-19 Vaccine ( season) 2023 05/26/2021, 05/05/2021 Influenza Vaccine (FLU shot) (Season Ended) 2024 Cervical Cancer Screening 02/22/2025 Pap Smear [...] as of this encounter Visit Diagnoses Diagnosis Abnormal glucose tolerance in mother complicating Abnormal maternal glucose tolerance, complicating , childbirth, or the puerperium, unspecified as to episode of care documented in this encounter Care Teams Fabric Worker Leader Relationship Specialty Start Date End Date Mehnaz Capone DO [address] [place] [address] PCP - General Family Medicine 03/02/16 documented as of this encounter
--- OUTSIDE RECORDS SUMMARY | 2024-05-31 03:30 | External Medical Summary ---
Author Name Unknown Address Unknown Organization K01:[facility] [place] [address] [place] [address] Laboratory Report Ordering Provider Test Date Status DIVINE BROTHERS 12/15/2023 08:08:01 Final Based on ACOG guideline, ges tational diabetes mellitus is diagnosed when any of the following is met:
Fasting is greater than or equal to 95 mg/dL
1 hour is greater than or equal to 180 mg/dL
2 hour is greater than or equal to 155 mg/dL
3 hour is greater than or equal to 140 mg/dL Observation Date Value Abnormality Reference (Units ) Status Glucose, fasting 12/15/2023 08:08:01 93 70- 94 (mg/dL) Final Performing Location [facility] [place] [address] [place] [address]
--- OUTSIDE RECORDS SUMMARY | 2024-05-31 03:30 | External Medical Summary | Summary of Care ---
Author Name Unknown Organization [facility] Address [address] [facility] [place] [address] Phone [phone] Care Team Providers Care Hydroelectric Operator Name Role Phone Mehnaz Capone DO Primary Care Provider [phone] Encounter Details Date Type Department Care Team (Late st Contact Info) Description 12/08/2023 Telephone [facility] [address] [facility] [place] [address] Meenakshi Perry CRNP [address] [facility], [place] [phone] Allergies No known active allergiesdocumented as of this encounter (statuses as of 12/13/2023) Medications Medication Sig Dispensed Refills Start Date End Date Status 28-0.8 MG Oral Tablet Take by mouth. 0 Active documented as of this encounter (statuses as of 12/13/2023) Active Problems Problem Noted Date Diagnosed Date Encounter for supervision of other normal , unspecified trimester 11/09/2023 History of gestational diabe meir in prior , currently 11/09/2023 Dermatitis due to plant 03/30/2016 Estimated Date of Delivery Comme nts Yes 05/28/2024 Based on Ultraso und documented as of this encounter (statuses as of 12/13/2023) Resolved Problems Problem Noted Date Diagnosed Date [...] postprandial blood sugars and report weekly via [employer]. Nutrition consult is scheduled for 03/18. Hemoglobin AIC Results: Lab Results Component Value Date/Time HEMOGLOBIN A1C - [facility] 5.4 02/28/2022 09:18 AM Results for AVI [...] from assisted reproductive technology 02/22/2022 10/18/2022 Overview: [place], [place] Last Assessment & Plan: DISCUSSION: 1. Assisted [...] as of this encounter (statuses as of 12/13/2023) Immunizations Name Administration Dates Next Due COVID-19 mRNA, LNP-s, No Pre serve, 2-Dose Series (Pfizer) 05/26/2021,05/05/2021 DTaP Dipth/Tet/Acell Pertussis (Infanrix), Peds 05/06/1996,09/21/1992,03/02/1992,12/02,1991 HIB PRP-T, 4 dose (ActHib) 09/21/1992,,1991,10/07 Hepatitis B, 0-19 yrs 07/02/1997,02/06/1997,12/12 MMR - Measles/Mumps/Rubella Vaccine 01/08/1997,0 09/21/1992 Meningococcal Conjugate Vacc ine (Menactra/Menveo) 08/10/2007 OPV - Polio Virus Vaccine (Oral) 996,09/21/1992,1991,10/07 TDAP (age 10 and older)(Boostrix) 06/27/2022 TDAP [...] of Alcohol Consumption 2-4 times a mon th 01/29/2019 Average Number of Drinks Not on file 019 Frequency of Binge Drinking Not on file 01/10 [place] Depression Scale Answer Date Recorded [place] Depression Scale Total 0 11/09/2023 The thought [...] encounter Miscellaneous Notes * Telephone Encounter - Angi Cortez MED ASSIST - 12/13/2023 3:47 PM EDT Pt stopped at check out desk and scheduled appt * Telephone Encounter - Marge Shanks RN - 12/13/2023 2:22 PM EDT Patient called and made aware. She verbalized understanding to all. She is agreeable to scheduling.Patient reports that she is coming to the office later today and will just schedule this when she comes in. Just FYI * Telephone Encounter - Marge Shanks RN - 12/08/2023 1:55 PM EDT Called patient. She was driving home and did not have good service. She is going to call back for results when she gets home. * Telephone Encounter - Meenakshi Perry CRNP - 12/08/2023 1:27 PM EDT Please notify pt that glucola elevated (178). Needs 3hr GTT. Orders placed. documented in this encounter Plan of Treatment Upcoming Encounters Date Type Department Care Team (Late st Contact Info) Description 12/15/2023 8:00 AM EDT Laboratory Laboratory, [facility] [address] [place] [phone] [facility] [address] [place] [address] 01/12/2024 9:15 AM EDT Imaging Radiology [facility] [address] [facility] [address] [place] [address] 01/12/2024 10:45 AM EDT Office Visit Gynecology/Obstetrics [facility] [address] [place] [address] Meenakshi Perry CRNP [address] [place] [address] Scheduled Orders Name Type Priority Associated Diagnoses Orde r Schedule GESTATIONAL GLUCOSE TOLERANCE, 3 HOUR Lab Routine Abnormal glucose tolerance in mother complicating Expected: 12/09/2023 (Approximate), Expires: 12/07/2024 Health Maintenance Due Date Last Done Comments [...] Diagnosis Abnormal glucose tolerance in mother complicating - Primary Abnormal maternal glucose tolerance, complicating , childbirth, or the puerperium, unspecified as to episode of care documented in this encounter Care Teams Hydroelectric Operator Relationship Specialty Start Date End Date Mehnaz Capone DO [address] [place] [address] PCP - General Family Medicine 03/02/16 documented as of this encounter
--- OUTSIDE RECORDS SUMMARY | 2024-05-31 03:30 | External Medical Summary ---
Author Name Unknown Address Unknown Organization [id number]:[facility] [place] [address] [place] [address] Laboratory Report Ordering Provider Test Date Status DIVINE BROTHERS 12/15/2023 11:10:21 Final Observation Date Value Abnormality Reference (Units ) Status Glucose [Mass/volume] in Serum or Plasma --3 hours post dose glucose 12/15/2023 11:10:21 103 70-139 (mg/dL) Final Performing Location [facility] [place] [address] [place] [address]
--- OUTSIDE RECORDS SUMMARY | 2024-05-31 03:30 | External Medical Summary ---
Author Name Unknown Address Unknown Organization [id number] [address] [place] [address] Laboratory Report Ordering Provider Test Date Status SARAI RUELAS 03/11/2024 10:20:12 Final Observation Date Value Abnormality Reference (Units ) Status Glucose [Mass/volume] in Serum or Plasma --1 hour post dose glucose 03/11/2024 10:20:12 193 Above high normal 70-179 (mg/dL) Final Performing Location [facility] - [address] [place] [address]
--- OUTSIDE RECORDS SUMMARY | 2024-05-31 03:30 | External Medical Summary ---
Author Name Unknown Address Unknown Organization K01:LABORATORY [facility] - [address] [place] [address] Laboratory Report Ordering Provider Test Date Status SURAJSARAI MADISON 03/11/2024 09:17:54 Final Observation Date Value Abnormality Reference (Units ) Status Ferritin 03/11/2024 09:17:54 12 Below low normal 13- 150 (ng/mL) Final Performing Location LABORATORY [facility] - [address] [place] [address]
--- OUTSIDE RECORDS SUMMARY | 2024-05-31 03:30 | External Medical Summary ---
Author Name Unknown Address Unknown Organization [id number]:[facility]ORY [facility] [place] - [address] [place] [address] Laboratory Report Ordering Provider Test Date Status SARAI RUELAS 03/11/2024 09:17:54 Final Observation Date Value Abnormality Reference (Units ) Status Treponema pallidum Ab [Presence] in Serum by Immunoassay 03/11/2024 09:17:54 Nonreactive Nonreactive Final No serologic evidence of syp hilis. No additional testing clinicially indicated at this time. Consider repeat testing in 2-4 weeks if acute or primary syphilis is suspected. Performing Location LABORATORY [facility] [place] - [address] [place] [address]
--- OUTSIDE RECORDS SUMMARY | 2024-05-31 03:30 | External Medical Summary ---
Author Name Unknown Address Unknown Organization K01:[facility] [place] [address] [place] [address] Laboratory Report Ordering Provider Test Date Status DIVINE BROTHERS 12/15/2023 10:10:16 Final Observation Date Value Abnormality Reference (Units ) Status Glucose, 2-hr post glucose challenge 12/15/2023 10:10:16 139 70-154 (mg/dL) Final Performing Location [facility] [place] [address] [place] [address]
--- OUTSIDE RECORDS SUMMARY | 2024-05-31 03:30 | External Medical Summary ---
Author Name Unknown Address Unknown Organization K0G:[facility]ATORY [place] [facility] - [address] [place] [address] Laboratory Report Ordering Provider Test Date Status SURAJSARAI 03/11/2024 09:17:54 Final Based on ACOG guideline, ges tational [...] Abnormality Reference (Units ) Status Glucose, fasting 03/11/2024 09:17:54 94 70- 94 (mg/dL) Final Performing Location [facility] 0 - [address] [place] [address]
--- OUTSIDE RECORDS SUMMARY | 2024-05-31 03:30 | External Medical Summary | Summary of Care ---
Author Name Unknown Organization [facility] Address [address] [facility] [address] Phone [phone] Care Team Providers Care Broadband Engineer Name Role Phone Mehnaz Capone DO Primary Care Provider [phone] Reason for Visit * Reason Comments Outpatient Testing Encounter Details Date Type Department Care Team (Late st Contact Info) Description 12/08/2023 8:40 AM EDT Laboratory Laboratory, [facility] [address] [place] [id number] [facility] 132 [facility] [place] [address] Encounter for supervision of other normal , unspecified trimester; History of gestational diabetes in prior , currently Allergies No known active allergiesdocumented as of this encounter (statuses as of 12/08/2023) Medications Medication Sig Dispensed Refills Start Date End Date Status 28-0.8 MG Oral Tablet Take by mouth. 0 Active documented as of this encounter (statuses as of 12/08/2023) Active Problems Problem Noted Date Diagnosed Date Encounter for supervision of other normal , unspecified trimester 11/09/2023 History of gestational diabe meir in prior , currently 11/09/2023 Dermatitis due to plant 03/30/2016 Estimated Date of Delivery Comme nts Yes 05/28/2024 Based on Ultraso und documented as of this encounter (statuses as of 12/08/2023) Resolved Problems Problem Noted Date Diagnosed Date [...] postprandial blood sugars and report weekly via [employer]. Nutrition consult is scheduled for 03/18. Hemoglobin AIC Results: Lab Results Component Value Date/Time HEMOGLOBIN A1C - Last 2 LeftER 5.4 02/28/2022 09:18 AM Results for AVI [...] as of this encounter (statuses as of 12/08/2023) Immunizations Name Administration Dates Next Due COVID-19 mRNA, LNP-s, No Pre serve, 2-Dose Series ([employer]) 05/26/2021,05/05/2021 Meningococcal Conjugate Vaccine (Menactra/Menveo ) 08/10/2007 [...] of Binge Drinking Not on file 01/10 [place] Depression Scale Answer Date Recorded [place] Depression Scale Total 0 11/09/2023 The thought [...] Description 01/12/2024 9:15 AM EDT Imaging Radiology [facility] 2[facility] [address] [place] [address] 01/12/2024 10:45 AM EDT Office Visit Gynecology/Obstetrics [facility] [address] [place] [address] Meenakshi Perry CRNP 132 [facility] [place] [address] Pending Results Name Type Priority Associated Diagnoses Date /Time 50-G GESTATIONAL GLUCOSE, 1 HOUR Lab Routine Encounter for supervision of other normal , unspecified trimester History of gestational diabetes in prior , currently 12/08/2023 9:50 AM EDT Health Maintenance Due Date Last Done Comments Depression Screening 11/14/2017 11/14/2016 HPV/Co-Test 2021 COVID-19 Vaccine ( season) 2023 05/26/2021, 05/05/2021 Influenza Vaccine (FLU shot) (#1) 2023 Cervical Cancer Screening 02/22/2025 Pap Smear 02/22/2025 [...] as of this encounter Visit Diagnoses Diagnosis Encounter for supervision of other normal , unspecified trimester History of gestational diabetes in prior , currently with other poor obstetric history documented in this encounter Care Teams Broadband Engineer Relationship Specialty Start Date End Date Mehnaz Capone DO [address] [place] [address] PCP - General Family Medicine 03/02/16 documented as of this encounter
--- OUTSIDE RECORDS SUMMARY | 2024-05-31 03:30 | External Medical Summary ---
Author Name Unknown Address Unknown Organization [id number]:[facility] - [address] [place] [address] Laboratory Report Ordering Provider Test Date Status DIVINE BROTHERS 12/15/2023 09:11:06 Final Observation Date Value Abnormality Reference (Units ) Status Glucose [Mass/volume] in Serum or Plasma --1 hour post dose glucose 12/15/2023 09:11:06 175 70-179 (mg/dL) Final Performing Location [facility] - [address] [place] [address]
--- OUTSIDE RECORDS SUMMARY | 2024-05-31 03:30 | External Medical Summary ---
Author Name Unknown Address Unknown Organization [id number]:[facility] [address] [facility] [address] Laboratory Report Ordering Provider Test Date Status SARAI RUELAS 03/11/2024 09:17:54 Final Observation Date Value Abnormality Reference (Units ) Status WBC, Total 03/11/2024 09:17:54 10.58 4.00-10.8 0 (K/uL) Final RBC 03/11/2024 09:17:54 3.57 3.85-5.15 (M/uL) Final Hemoglobin 03/11/2024 09:17:54 10.8 Below low normal 12 .0-15.3 (g/dL) Final Anemia reflex testing trigge rs on a HGB < 12.0 for Females and HGB < 13.0 for Males in accordance with the WHO Anemia Guidelines
Anemia reflex testing triggers on a HGB < 12.0 for Females and HGB < 13.0 for Males in accordance with the WHO Anemia Guidelines HCT 03/11/2024 09:17:54 33.0 Below low normal 36. 0-45.2 (%) Final MCV 03/11/2024 09:17:54 92.4 81.5-97.5 (fL) Final MCH 03/11/2024 09:17:54 30.3 27.0-34.0 (pg) Final MCHC 03/11/2024 09:17:54 32.7 32.0-36.0 (g/dL) Final RDW 03/11/2024 09:17:54 14.0 11.5-15.5 (%) Final Platelets 03/11/2024 09:17:54 187 140-400 (K /uL) Final MPV 03/11/2024 09:17:54 11.4 6.6-11.1 ( fL) Final Nucleated erythrocytes/100 leukocytes [Ratio] in Blood by Automated count 03/11/2024 09:17:54 0 <=0 (/100 WBCs) Final Performing Location [facility] [place] [address] [facility] [address]
--- OUTSIDE RECORDS SUMMARY | 2024-05-31 03:30 | External Medical Summary ---
Author Name Unknown Address Unknown Organization [id number]:[facility] [place] - [address] [facility] [place] [address] Laboratory Report Ordering Provider Test Date Status SARAI RUELAS 03/11/2024 09:17:54 Final Observation Date Value Abnormality Reference (Units ) Status SYNC LEUKOCYTES IN BLOOD BY AUTOMATED COUNT 03/11/2024 09:17:54 10.58 4.00-10.80 (K/uL) Final Segs 03/11/2024 09:17:54 70.2 40.0-75.0 (%) Final Lymphs % 03/11/2024 09:17:54 20.7 18.0-42.0 (%) Final Monos 03/11/2024 09:17:54 7.0 1.0-11.0 (%) Final Eosinophils 03/11/2024 09:17:54 0.9 0.0-6.0 (%) Final Basos 03/11/2024 09:17:54 0.5 0.0-2.0 (%) Final Immature Granulocyte, Percent 03/11/2024 09:17:54 0.7 0.0-2.0 (%) Final Absolute Segs 03/11/2024 09:17:54 7.44 1.80-7.70 (K/uL) Final Lymphs, absolute 03/11/2024 09:17:54 2.19 1.00-4.80 (K/ul) Final Monos, Abs 03/11/2024 09:17:54 0.74 0.00-1.10 (K/uL) Final Eos, Abs 03/11/2024 09:17:54 0.09 0.00-0.70 (K/uL) Final Basos, Abs 03/11/2024 09:17:54 0.05 0.00-0.20 (K/uL) Final Immature Granulocytes, Number 03/11/2024 09:17:54 0.07 0.00-0.20 (K/uL) Final Performing Location [facility]ORY [facility] [place] - [address] [facility] [address]
--- OUTSIDE RECORDS SUMMARY | 2024-05-31 03:30 | External Medical Summary ---
Author Name Unknown Address Unknown Organization [id number]:[facility] [place] [facility] [address] [place] [address] Laboratory Report Ordering Provider Test Date Status LUCIA RUELASMAHAMED 03/11/2024 09:17:54 Final Observation Date Value Abnormality Reference (Units ) Status Creatinine 03/11/2024 09:17:54 0.7 0.5-1.0 (mg/dL) Final Glomerular filtration rate/1.73 sq M.predicted [Volume Rate/Area] in Serum, Plasma or Blood by Creatinine-based formula (CKD-EPI) 03/11/2024 09:17:54 >90 >=60 (mL/min) Final eGFR is calculated based on the CKD-EPI 2020 equation Performing Location [facility] [place] [facility] [address] [place] [address]
--- OUTSIDE RECORDS SUMMARY | 2024-05-31 03:30 | External Medical Summary | Summary of Care ---
Author Name Unknown Organization [facility] Address [address] [facility] [place] [address] Phone [phone] Care Team Providers Care Plate Washer Name Role Phone Mehnaz Capone DO Primary Care Provider [phone] Encounter Details Date Type Department Care Team (Late st Contact Info) Description 12/08/2023 Telephone [facility] [address] [facility] [place] [address] Meenakshi Perry CRNP [address] [facility], [place] [id number] Allergies No known active allergiesdocumented as of [...] postprandial blood sugars and report weekly via [employer]. Nutrition consult is scheduled for 03/18. Hemoglobin AIC Results: Lab Results Component Value Date/Time HEMOGLOBIN A1C - [facility] 5.4 02/28/2022 09:18 AM Results for AVI [...] of Binge Drinking Not on file 01/10 [place] Depression Scale Answer Date Recorded [place] Depression Scale Total 0 11/09/2023 The thought [...] encounter Miscellaneous Notes * Telephone Encounter - Marge Shanks RN [...] Description 01/12/2024 9:15 AM EDT Imaging Radiology [facility] 2nd Floor, [place] [facility] [place] [address] 01/12/2024 10:45 AM EDT Office Visit Gynecology/Obstetrics [facility] [address] [place] [address] Meenakshi Perry CRNP [address] [facility] [place] [address] Scheduled Orders Name Type Priority Associated Diagnoses [...] care documented in this encounter Care Teams Plate Washer Relationship Specialty Start Date End Date Mehnaz Capone DO [address] [place] [address] PCP - General Family Medicine 03/02/16 documented as of this encounter
--- OUTSIDE RECORDS SUMMARY | 2024-05-31 03:30 | External Medical Summary ---
Author Name Unknown Address Unknown Organization [id number][facility] [address] [place] [address] Laboratory Report Ordering Provider Test Date Status SARAI RUELAS 03/11/2024 11:25:20 Final Observation Date Value Abnormality Reference (Units ) Status Glucose, 2-hr post glucose challenge 03/11/2024 11:25:20 155 Above high normal 70-154 (mg/dL) Final Performing Location [facility]ATORY [facility] - [address] [place] [address]
--- OUTSIDE RECORDS SUMMARY | 2024-05-31 03:30 | External Medical Summary | Summary of Care ---
Author Name Unknown Organization [facility] Address [address] [facility] [place] [address] Phone [phone] Care Team Providers Care Ferry Captain Name Role Phone Mehnaz Capone DO Primary Care Provider [phone] Encounter Details Date Type Department Care Team (Late st Contact Info) Description 12/08/2023 Telephone [facility] [address] [facility] [place] [address] Meenakshi Perry CRNP [address] [facility], [place] [id number] Allergies No known active allergiesdocumented as of [...] postprandial blood sugars and report weekly via [email or web address]. Nutrition consult is scheduled for 03/18. Hemoglobin AIC Results: Lab Results Component Value Date/Time HEMOGLOBIN A1C - Sendbloom[facility] 5.4 02/28/2022 09:18 AM Results for AVI [...] of Binge Drinking Not on file 01/10 [place] Depression Scale Answer Date Recorded [place] Depression Scale Total 0 11/09/2023 The thought [...] Description 01/12/2024 9:15 AM EDT Imaging Radiology [facility] 132 [facility] [place] [address] 01/12/2024 10:45 AM EDT Office Visit Gynecology/Obstetrics [facility] 132 [facility] [place] [address] Meenakshi Perry CRNP [address] [place] [address] Scheduled Orders Name Type Priority Associated Diagnoses [...] care documented in this encounter Care Teams Ferry Captain Relationship Specialty Start Date End Date Mehnaz Capone DO [address] [place] [address] PCP - General Family Medicine 03/02/16 documented as of this encounter
--- OUTSIDE RECORDS SUMMARY | 2024-05-31 03:30 | External Medical Summary | Summary of Care ---
Author Name Unknown Organization [facility] Address [address] [facility] [address] Phone [phone] Care Team Providers Care Secondary English Teacher Name Role Phone Mehnaz Capone DO Primary Care Provider [phone] Reason for Visit * Reason Comments Return Visit Encounter Details Date Type Department Care Team (Late st Contact Info) Description 02/09/2024 8:30 AM EDT Office Visit Gynecology/Obstetric s Otilia Alberts [address] [place] [address] BackerMaggi CRNP [address] [place] [address] Encounter for supervision of other normal , unspecified trimester*; History of gestational diabetes in prior , currently ; Obesity in , antepartum Allergies No known active allergiesdocumented as of this encounter (statuses as of 02/09/2024) Medications Medication Sig Dispensed Refills Start Date End Date Status 28-0.8 MG Oral Tablet Take by mouth. Active documented as of this encounter (statuses as of 02/09/2024) Active Problems Problem Noted Date Diagnosed Date [...] as of this encounter (statuses as of 02/09/2024) Resolved Problems Problem Noted Date Diagnosed Date [...] postprandial blood sugars and report weekly via [employer]. Nutrition consult is scheduled for 03/18. Hemoglobin AIC Results: Lab Results Component Value Date/Time HEMOGLOBIN A1C - [facility] 5.4 02/28/2022 09:18 AM Results for AVI [...] diet 03/31/22: Stable 04/10/22: Stable aside from 3/ fasting elevations. Will continue with diet for [...] as of this encounter (statuses as of 02/09/2024) Immunizations Name Administration Dates Next Due COVID-19 mRNA, LNP-s, No Pre serve, 2-Dose Series ([employer]) 05/26/2021,05/05/2021 Meningococcal Conjugate Vaccine (Menactra/Menveo ) 08/10/2007 [...] of Binge Drinking Not on file 01/10 [place] Depression Scale Answer Date Recorded [place] Depression Scale Total 0 11/09/2023 The thought [...] Sign Reading Time Taken Comments Blood Pressure 102/64 02/09/2024 8:42 AM EDT Pulse - - Temperature - - Respiratory Rate - - Oxygen Saturation - - Inhaled Oxygen Concentration - - Weight 96.6 kg (213 lb) 02/09/2024 8:42 AM EDT Height - - Body Mass Index 34.64 01/12/2024 10:09 AM EDT documented in this encounter Patient Instructions * Patient Instructions* Maggi Anderson CRNP - 02/09/2024 8:46 AM EDT Round Ligament Pain: Causes and Treatment Round ligament pain is most common during the 2nd and 3rd trimesters. Women may have a sharp pain in their abdomen or hip area that is either on one side or both. Some women even report pain that extends into the groin area. Round ligament pain is considered a normal part of as your body goes through many different changes. What causes round ligament pain? The round ligament supports the uterus and stretches during . It connects the front portion of the uterus to the groin. These ligaments contract and relax like muscles, but much more slowly. Any movement (including going from a sitting to standing position quickly, laughing, or coughing) that stretches these ligaments by making them contract quickly, can cause a woman to experience pain.Round ligament pain should only last for a few seconds. Stretching is the best way to loosen things up and prevent round ligament pain. Here are our top round ligament pain stretches to get you started: #1 CAT-COW Start on your hands and knees, shoulders above wrists and hips above knees. Breathe in and drop your stomach down, arching your back and looking upward. Then, breathe out and round your upper back toward the ceiling, allowing your head to drop and face your stomach. #2 HIP FLEXOR STRETCH In all fours position with your arm resting on a chair or birthing ball, bring the right leg forward while extending/straightening the left leg back until you feel a stretch in the front of the left thigh. Hold the position for 5-10 seconds. Repeat on the opposite side. #3 SIDE LYING SAVASANA Lie on your left side in a position, tuck your left arm beneath your head, and place a pillowbetween your legs to relieve pressure on your lower back. Flex your hips and remain in this position for several minutes. Inhale deeply as you stretch. #4 THE PELVIC CLOCK Sit on a birthing ball or chair with your feet flat on the floor. Bring your hands to your hips so you can feel the movement in your pelvis as you stretch. Now, imagine a clock resting on your pelvis--with your navel at 12 oclock and pubic bone at 6 oclock. Engage your abs and lengthen your spine. Inhale and tilt your pelvis toward a 3 oclock position. Continue on the inhale and move around the clock, creating a small arch in your lower back. Exhale and bring your pelvis to 9 oclock. Continue your exhale until you reach a neutral 12 oclock position. #5 BUTTERFLY STRETCH Sit upright on a firm surface. Place the soles of your feet together and pulse your legs up and down, like the wings of a butterfly. You should feel a stretch in your inner thighs. For an even deeperstretch, place your hands on your knees for resistance. Other Ways to Relieve Round Ligament Pain While round ligament pain stretches are the best way to reduce pain, there are a few other things you can try to alleviate the discomfort : A belly band to give your bump some extra support Hydration to improve circulation to your growing tissue Rest to allow your muscles to recover from any movement Massage to give that area some extra TLC Acetaminophen to get some medicated pain relief documented in this encounter Progress Notes * Maggi Anderson CRNP - 02/09/2024 8:45 AM EDT 24w3d Feeling movement. No ctx, leaking, bleeding. Some round ligament pain, provided with comfort measures. Labs, including 3 hr GTT, ordered for next visit. Growth scan in 4 weeks. Discussed recommendation for weekly NSTs at 37 weeks. ZAINAB Schuster * Yasmine Bains LPN - 02/09/2024 8:40 AM EDT 24w3d Denies vaginal bleeding/rom + movement Round ligament pain documented in this encounter Plan of Treatment Upcoming Encounters Date Type Department Care Team (Late st Contact Info) Description 03/11/2024 10:20 AM EDT Laboratory Laboratory, [facility] [address] [place] [phone] Shane Alberts [address] [place] [address] 03/11/2024 10:30 AM EDT Imaging [facility] [place] [address] [place] [address] 03/11/2024 11:45 AM EDT Office Visit Gynecology/Obstetrics Otilia Alberts [address] [place] [address] Daina Momin PA-C [address] [place] [address] Scheduled Orders Name Type Priority Associated Diagnoses Orde r Schedule GESTATIONAL GLUCOSE TOLERANCE, 3 HOUR Lab Routine Encounter for supervision of other normal , unspecified trimester History of gestational diabetes in prior , currently Expected: 02/23/2024 (Approximate), Expires: 02/08/2025 SYPHILIS ANTIBODY SCREEN WITH REFLEX TO RPR Lab Routine Encounter for supervision of other normal , unspecified trimester Expected: 02/23/2024 (Approximate), Expires: 02/08/2025 CBC WITH WBC DIFFERENTIAL AND ANEMIA REFLEX WORKUP Lab Routine Encounter for supervision of other normal , unspecified trimester Expected: 02/23/2024 (Approximate), Expires: 02/08/2025 PREG FOLLOW-UP EACH FETUS Medical Imaging Routine Encounter for supervision of other normal , unspecified trimester Obesity in , antepartum Expected: 03/10/2024 (Approximate), Expires: 03/10/2025 Health Maintenance Due Date Last Done Comments [...] for supervision of other normal , unspecified trimester- Primary History of gestational diabetes in prior , currently with other poor obstetric history Obesity in , antepartum Obesity complicating , childbirth, or the puerperium, antepartum condition or complication documented in this encounter Care Teams Secondary English Teacher Relationship Specialty Start Date End Date Mehnaz Capone DO [address] [place] [address] PCP - General Family Medicine 03/02/16 documented as of this encounter
--- OUTSIDE RECORDS SUMMARY | 2024-05-31 03:30 | External Medical Summary | Summary of Care ---
Author Name Unknown Organization [facility] Address [address] [facility] [place] [address] Phone [phone] Care Team Providers Care Sludge Filtration Operator Name Role Phone Mehnaz Capone DO Primary Care Provider [phone] Reason for Visit * Reason Comments Return Visit Encounter Details Date Type Department Care Team (Late st Contact Info) Description 03/11/2024 11:45 AM EDT Office Visit Gynecology/Obstetric loraine Alberts [address] [place] [address] Daina Momin PA-C [address] [place] [address] Encounter for supervision of other normal , [...] postprandial blood sugars and report weekly via [employer]. Nutrition consult is scheduled for 03/18. Hemoglobin AIC Results: Lab Results Component Value Date/Time HEMOGLOBIN A1C - ViFluxER 5.4 02/28/2022 09:18 AM Results for AVI [...] weeks, MFM and DM educator referrals placed 7/7: Multiple elevated fasting values. A few high [...] mRNA, LNP-s, No Pre serve, 2-Dose Series ([employer]) 05/26/2021,05/05/2021 Meningococcal Conjugate Vaccine (Menactra/Menveo ) 08/10/2007 [...] of Binge Drinking Not on file 01/10 [place] Depression Scale Answer Date Recorded [place] Depression Scale Total 0 11/09/2023 The thought [...] Sign Reading Time Taken Comments Blood Pressure 96/62 03/11/2024 10:59 AM EDT Pulse - - Temperature - - Respiratory Rate - - Oxygen Saturation - - Inhaled Oxygen Concentration - - Weight 97.3 kg (214 lb 9.6 oz) 03/11/2024 10:59 AM EDT Height 167 cm (5' 5.75") 03/11/2024 10:59 AM EDT Body Mass Index 34.9 03/11/2024 10:59 AM EDT documented in this encounter Progress Notes * Daina Momin PA-C - 03/11/2024 11:06 AM EDT 28w6d Growth u/s today final report pending. Prelim 28%ile, normal GLENN. Will continue growth q4 weeks secondary to class 2 obese. Completing third tri labs with 3 hour gtt today. Would like to defer TDaP until next visit. Gender is surprise! RTC in 2 weeks Daina Momin PA-C documented in this encounter Nursing Notes * Landy Medina LPN - 03/11/2024 11:01 AM EDT 28w6d Growth us today- 28%, GLENN 14.1cm. Would like to wait until next visit for tdap. documented in this encounter Plan of Treatment Upcoming Encounters Date Type Department Care Team (Late st Contact Info) Description 03/28/2024 4:30 PM EDT Office Visit Gynecology/Obstetrics [facility] [address] [place] [address] Daina Momin PA-C [address] [place] [address] 04/11/2024 3:30 PM EDT Imaging Radiology [facility] 2nd [facility] [place] [address] [place] [address] 04/11/2024 4:15 PM EDT Office Visit Gynecology/Obstetrics [facility] [address] [place] [address] Rica Hemphill MD [address] [place] [address] Scheduled Orders Name Type Priority Associated Diagnoses Orde r Schedule US PREG FOLLOW-UP EACH FETUS Medical Imaging Routine Encounter for supervision of other normal , unspecified trimester Obesity in , antepartum Expected: 04/11/2024 (Approximate), Expires: 04/11/2025 Health Maintenance Due Date Last Done Comments [...] complication documented in this encounter Care Teams Sludge Filtration Operator Relationship Specialty Start Date End Date Mehnaz Capone DO [address] [facility] [place] [address] PCP - General Family Medicine 03/02/16 documented as of this encounter
--- OUTSIDE RECORDS SUMMARY | 2024-05-31 03:30 | External Medical Summary | Summary of Care ---
Author Name Unknown Organization [facility] Address [address] [facility] [place] [address] Phone [phone] Care Team Providers Care Director Labor Standards Name Role Phone Mehnaz Capone DO Primary Care Provider [phone] Reason for Visit * Reason Comments Return Visit Encounter Details Date Type Department Care Team (Late st Contact Info) Description 12/08/2023 9:15 AM EDT Office Visit Gynecology/Obstetric loraine Alberts [address] [place] [address] Daina Momin PA-C [address] [place] [id number] Encounter for supervision of other normal , [...] postprandial blood sugars and report weekly via [employer]. Nutrition consult is scheduled for 03/18. Hemoglobin AIC Results: Lab Results Component Value Date/Time HEMOGLOBIN A1C - [facility] 5.4 02/28/2022 09:18 AM Results for AVI [...] mRNA, LNP-s, No Pre serve, 2-Dose Series ([employer]) 05/26/2021,05/05/2021 Meningococcal Conjugate Vaccine (Menactra/Menveo ) 08/10/2007 [...] of Binge Drinking Not on file 01/10 [place] Depression Scale Answer Date Recorded [place] Depression Scale Total 0 11/09/2023 The thought [...] Reading Time Taken Comments Blood Pressure 102/64 12/08/2023 9:05 AM EDT Pulse - - Temperature - - Respiratory Rate - - Oxygen Saturation - - Inhaled Oxygen Concentration - - Weight 96.2 kg (212 lb) 12/08/2023 9:05 AM EDT Height 167 cm (5' 5.75") 12/08/2023 9:05 AM EDT Body Mass Index 34.48 12/08/2023 9:05 AM EDT documented in this encounter Progress Notes * Daina Momin PA-C - 12/08/2023 9:24 AM EDT 15w3d No complaints. Denies VB. Completing early glucola today. Declines genetics including NIPT and MSAFP. Anatomy next visit. RTC in 4 weeks Daina Momin PA-C documented in this encounter Nursing Notes * Landy Medina LPN - 12/08/2023 9:12 AM EDT 15w2d Doing early gtt today documented in this encounter Plan of Treatment Upcoming Encounters Date Type Department Care Team (Late st Contact Info) Description 01/12/2024 9:15 AM EDT Imaging Radiology [facility] 2nd Floor, [place] [address] [place] [address] 01/12/2024 10:45 AM EDT Office Visit Gynecology/Obstetrics [facility] [address] [place] [address] Meenakshi Perry CRNP [address] [place] [address] Scheduled Orders Name Type Priority Associated Diagnoses Orde r Schedule US PREG SINGLE/1ST GEST, 14 WEEKS OR LATER Medical Imaging Routine Encounter for supervision of other normal , unspecified trimester Expected: 01/08/2024, Expires: 01/07/2025 Health Maintenance Due Date Last Done Comments [...] history documented in this encounter Care Teams Director Labor Standards Relationship Specialty Start Date End Date Mehnaz Capone DO [address] [place] [address] PCP - General Family Medicine 03/02/16 documented as of this encounter
--- OUTSIDE RECORDS SUMMARY | 2024-05-31 03:30 | External Medical Summary | Summary of Care ---
Author Name Unknown Organization [facility] Address [address] [facility] [place] [address] Phone [phone] Care Team Providers Care Senior Director Insight Name Role Phone Mehnaz Capone DO Primary Care Provider [phone] Reason for Visit * Reason Comments Return Visit Encounter Details Date Type Department Care Team (Late st Contact Info) Description 01/12/2024 10:45 AM EDT Office Visit Gynecology/Obstetric s Otilia Alberts [address] [place] [address] Meenakshi Perry CRNP [address] [place] [phone] Encounter for supervision of other normal , unspecified trimester*; History of gestational diabetes in prior , currently ; Encounter for follow-up ultrasound of anatomy Allergies No known active allergiesdocumented as of this encounter (statuses as of 01/12/2024) Medications Medication Sig Dispensed Refills Start Date End Date Status 28-0.8 MG Oral Tablet Take by mouth. 0 Active documented as of this encounter (statuses as of 01/12/2024) Active Problems Problem Noted Date Diagnosed Date Encounter for supervision of other normal , unspecified trimester 11/09/2023 History of gestational diabe meir in prior , currently 11/09/2023 Dermatitis due to plant 03/30/2016 Estimated Date of Delivery Comme nts Yes 05/28/2024 Based on Ultraso und documented as of this encounter (statuses as of 01/12/2024) Resolved Problems Problem Noted Date Diagnosed Date [...] postprandial blood sugars and report weekly via [employer]. Nutrition consult is scheduled for 03/18. Hemoglobin AIC Results: Lab Results Component Value Date/Time HEMOGLOBIN A1C - [facility] 5.4 02/28/2022 09:18 AM Results for AVI [...] as of this encounter (statuses as of 01/12/2024) Immunizations Name Administration Dates Next Due COVID-19 mRNA, LNP-s, No Pre serve, 2-Dose Series ([employer]) 05/26/2021,05/05/2021 Meningococcal Conjugate Vaccine (Menactra/Menveo ) 08/10/2007 [...] of Binge Drinking Not on file 01/10 [place] Depression Scale Answer Date Recorded [place] Depression Scale Total 0 11/09/2023 The thought [...] Sign Reading Time Taken Comments Blood Pressure 108/64 01/12/2024 10:09 AM EDT Pulse - - Temperature - - Respiratory Rate - - Oxygen Saturation - - Inhaled Oxygen Concentration - - Weight 95.4 kg (210 lb 6.4 oz) 01/12/2024 10:09 AM EDT Height 167 cm (5' 5.75") 01/12/2024 10:09 AM EDT Body Mass Index 34.22 01/12/2024 10:09 AM EDT documented in this encounter Progress Notes * Meenakshi Perry CRNP - 01/12/2024 10:24 AM EDT 20w3d Complaints: none Feeling well. +FM. No contractions, bleeding, or LOF. Anatomy u/s today, needs additional views in 2 weeks. ZAINAB Cool documented in this encounter Nursing Notes * Landy Mdeina LPN - 01/12/2024 10:09 AM EDT 20w3d Return in 2 weeks for missed anatomy. Denies concerns. documented in this encounter Plan of Treatment Upcoming Encounters Date Type Department Care Team (Late st Contact Info) Description 01/26/2024 2:45 PM EDT Imaging Radiology [facility] [address]nd [facility] [address] [place] [address] 02/09/2024 8:30 AM EDT Office Visit Gynecology/Obstetrics [facility] [address] [place] [address] [place], ZAINAB Cline [address] [place] [address] Scheduled Orders Name Type Priority Associated Diagnoses Orde r Schedule US PREG LIMITED 1 OR MORE FETUSES Medical Imaging Routine Encounter for follow-up ultrasound of anatomy Expected: 01/26/2024 (Approximate), Expires: 02/11/2025 Health Maintenance Due Date Last Done Comments [...] , currently with other poor obstetric history Encounter for follow-up ultrasound of anatomy documented in this encounter Care Teams Senior Director Insight Relationship Specialty Start Date End Date Mehnaz Capone DO [address] [place] [address] PCP - General Family Medicine 03/02/16 documented as of this encounter
--- OUTSIDE RECORDS SUMMARY | 2024-05-31 03:31 | External Medical Summary ---
Author Name Unknown Address Unknown Organization [id number] [place] [address] Laboratory Report Ordering Provider Test Date Status ZEVDIVINE 12/08/2023 09:50:04 Final Observation Date Value Abnormality Reference (Units ) Status Glucose [Moles/volume] in Serum or Plasma --1 hour post 50 g glucose PO 12/08/2023 09:50:04 178 Above high normal 70-129 (mg/dL) Final Performing Location [facility] [place] [address]
[2024-05-31] MEDS: BENZOCAINE 20% SPRY 85 APPLN/85 GM CAN EXT PRN (04:42)
[2024-05-31] MEDS: IBUPROFEN 600 MG TAB PO PRN (04:43)
--- NOTE | 2024-05-31 06:55 | XRay Report ---
XR pelvis 1-2V routine HISTORY: 33 years-old Female inaccurate sponge count, post vaginal delivery COMPARISON: CT 09/12/2022 TECHNIQUE: AP view the pelvis FINDINGS: There is a linear radiodense structure projecting over the central abdomen at the level of the mid charlie mbar spine. Vascular calcifications of the pelvis. No acute fracture. IMPRESSION: Linear radiodense structure projected over the central abdomen suggestive of a surgical s ponge. ACT 112: Negative or not required by law. The above report was generated using voice recognition software. It may contain grammatical, syntax o r spelling errors. Electronically signed by: Robbin Díaz M.D. 05/31/2024 6:53 AM
--- NOTE | 2024-05-31 07:18 | Anesthesia Procedure Note ---
Date of Service May 31, 2024 Anesthesia Post Epidural Note Vital Signs Vital Signs: Temp Pulse Resp BP Pulse Ox O2 Del Method 36.9 C 64 18 108/69 98 Room Air 05/31/24 03:30 05/31/24 03:34 05/31/24 03:30 05/31/24 03:34 05/31/24 01:59 05/30/24 23:00 Notes Mental Status: alert / awake / arousable and participated in evaluation Nausea / Vomiting: adequately controlled Pain: adequately controlled Airway Patency, RR, SpO2: stable & adequate BP & HR: stable & adequate Hydration State: stable & adequate Neuraxial Anesthesia: was administered and sensory block is resolving Anesthetic Complications: no major complications apparent and Pt Satisfied with anesthetic care Epidural: Removed without complications and With tip intact
[2024-05-31] MEDS: ACETAMINOPHEN 325 MG TAB PO PRN (08:16)
[2024-05-31] MEDS: PRENATAL VITAMIN 1 TAB PO SCH (08:16)
[2024-05-31] MEDS: DOCUSATE SODIUM 100 MG CAP PO SCH (08:16)
--- NOTE | 2024-05-31 08:37 | XRay Report ---
XR pelvis 1-2V routine HISTORY: 33 years-old Female f/u xray follow-up study in a patient with possible retained surgical s ponge COMPARISON: Pelvic radiograph of same day at 2:35 AM TECHNIQUE: AP view of the pelvis FINDINGS: The previously noted surgical sponge is no longer identified. No acute fracture. The bowel gas patter n appears nonobstructive. IMPRESSION: No opaque foreign body identified. ACT 112: Negative or not required by law. The above report was generated using voice recognition software. It may contain grammatical, syntax o r spelling errors. Electronically signed by: Robbin Díaz M.D. 05/31/2024 8:36 AM
--- NOTE | 2024-05-31 09:58 | Obstetrical Progress Note ---
Date of Service May 31, 2024 Subjective Ambulation: ambulating normally Voiding: no voiding problems Passing Gas:: Yes Diet Tolerance:: regular diet Feeding Type:: breast feeding Current Pain Level(1-10): 0 Physical Exam Genitourinary I reviewed both X-rays and f/u x-ray reveals no evidence of retained sponge this finding was told to patient Results & Data Vital Signs (Past 12 Hours) Vital Signs Temp Pulse Resp BP BP Pulse Ox O2 Del Method 05/31/24 07:05 36.7 C 14 107/77 97 Room Air 05/31/24 03:34 64 108/69 05/31/24 03:30 36.9 C 18 05/31/24 03:11 70 111/70 05/31/24 03:02 69 110/68 05/31/24 02:52 66 114/73 05/31/24 02:42 60 113/71 05/31/24 02:32 66 114/71 05/31/24 02:22 62 113/69 05/31/24 02:12 71 120/64 05/31/24 02:02 81 106/70 05/31/24 01:59 72 98 05/31/24 01:54 70 98 05/31/24 01:51 73 110/67 05/31/24 01:49 77 97 05/31/24 01:47 68 109/64 05/31/24 01:44 78 98 05/31/24 01:42 73 104/63 05/31/24 01:39 72 98 05/31/24 01:34 74 98 05/31/24 01:32 70 111/68 05/31/24 01:29 65 99 05/31/24 01:24 67 97 05/31/24 01:22 62 111/61 05/31/24 01:19 67 98 05/31/24 01:14 68 99 05/31/24 01:12 67 108/60 05/31/24 01:09 68 99 05/31/24 01:04 70 98 05/31/24 01:02 67 108/58 L 05/31/24 00:59 72 99 05/31/24 00:56 66 100/61 05/31/24 00:54 100 05/31/24 00:54 68 05/31/24 00:54 71 122/90 05/31/24 00:53 64 93 09/20/24 00:49 69 100 05/31/24 00:44 77 100 05/31/24 00:39 74 100 05/31/24 00:34 75 98 05/31/24 00:29 65 100 05/31/24 00:23 69 98 05/31/24 00:18 66 98 05/31/24 00:13 61 98 05/31/24 00:12 64 106/59 L 05/31/24 00:08 65 97 05/31/24 00:03 66 97 05/30/24 23:58 63 99 05/30/24 23:56 64 100/59 L 05/30/24 23:53 65 98 05/30/24 23:48 67 97 05/30/24 23:47 66 110/69 05/30/24 23:43 71 100 05/30/24 23:42 70 91 05/30/24 23:37 63 100 05/30/24 23:34 36.7 C 05/30/24 23:32 66 97 05/30/24 23:27 67 97 05/30/24 23:26 63 109/73 05/30/24 23:22 66 98 05/30/24 23:17 64 98 05/30/24 23:12 59 L 96 05/30/24 23:11 68 106/70 05/30/24 23:07 69 98 05/30/24 23:02 68 99 05/30/24 23:00 18 Room Air 05/30/24 22:57 60 97 05/30/24 22:56 63 104/64 05/30/24 22:52 63 97 05/30/24 22:47 65 98 05/30/24 22:42 64 109/65 97 05/30/24 22:37 67 97 05/30/24 22:32 68 97 05/30/24 22:31 68 105/61 05/30/24 22:27 77 98 05/30/24 22:23 61 108/57 L 05/30/24 22:22 63 99 05/30/24 22:17 67 99 05/30/24 22:12 69 97 05/30/24 22:11 64 120/72 05/30/24 22:07 72 99 05/30/24 22:02 71 99 05/30/24 22:00 05/30/24 22:00 36.7 C 05/30/24 21:57 72 97
[2024-05-31] MEDS: DIPHTHER/TETAN/PERTUS Vaccine (Tdap, Adol/Adult) 0.5mL IM ONE (17:49)
[2024-06-01 07:17] LABS: Hematocrit (blood only) 30.1 % (37.0-47.0); Hemoglobin 10.3 g/dl (12.0-16.0); Mean Corpuscular Hemoglobin 31.2 pg (25.0-34.0); Mean Corpuscular Hgb Conc 34.2 g/dL (32.0-36.0); Mean Corpuscular Volume 91.2 fL (80.0-100.0); Mean Platelet Volume 11.2 fL (9.4-12.4); Platelet Count 147 K/uL (130-400); RDW Coefficient of Variation 15.1 % (11.5-14.5); RDW Standard Deviation 50.6 fL (36.4-46.3); White Blood Count 11.91 K/ul (4.8-10.8)
[2024-06-01 08:28] VITALS: BP 107/70; RESP 16; TEMP 97.7; O2SAT 98
--- NOTE | 2024-06-01 09:45 | Obstetrical Progress Note ---
Date of Service June 01, 2024 Assessment & Plan (1) state: PPD #2 pt doing well d/c home with instrcutions Subjective Ambulation: ambulating normally Voiding: no voiding problems Passing Gas:: Yes Diet Tolerance:: regular diet Lochia:: Small Feeding Type:: breast feeding Review of Systems All systems reviewed & are unremarkable except as noted in HPI & below Physical Exam Constitutional WD/WN, vitals as above well developed and well nourished Eyes PERRL, conjunctivae normal, anicteric sclerae Neck trachea midline, no thyromegaly Respiratory normal respiratory effort, lungs clear to auscultation Auscultation: no crackles, no rales and no wheezes Cardiovascular RRR, no murmur, no edema Gastrointestinal (Abdomen) normal bowel sounds, soft, nontender, no hepatosplenomegaly Uterus is below umbilicus Musculoskeletal no cyanosis or clubbing, extremities motor strength 5/5 Skin no rashes, warm and dry Neurologic patellar DTR's 2+ bilat, sensation intact Psychiatric A+Ox3, euthymic affect Genitourinary normal external appearance Results & Data Vital Signs (Past 12 Hours) Vital Signs Temp Pulse Resp BP Pulse Ox O2 Del Method 06/01/24 08:25 36.5 C 80 16 107/70 98 Room Air 05/31/24 23:14 36.8 C 65 18 104/68 97 Room Air
[2024-06-01 10:42] VITALS: PULSE 61
[2024-06-01] MEDS ORDERED: bisacodyL 5 MG TABEC PO SCH (20:00)
== END 2024-06-01 12:05 | disposition home or self-care (01) | DRG 807 ==
LOC: 4S1 05-30 15:15 → 4E2 05-31 06:36